=== PATIENT | male | born 1955 | race Caucasian/White ===

== ENCOUNTER 2017-03-09 18:00 | Inpatient (IN) ==
[2017-03-09] MEDS ORDERED: *HR* OxyCODONE/APAP 5/325 TABLET PO ONE (20:40)
[2017-03-09] MEDS ORDERED: Acetaminophen 325 MG TABLET PO PRN (23:47)
[2017-03-09] MEDS ORDERED: Ondansetron 4 MG/2 ML VIAL IVP PRN (23:47)
[2017-03-09] MEDS ORDERED: *HR* Morphine 2 MG/ML SYRINGE IVP PRN (23:47)
[2017-03-09] MEDS ORDERED: Naloxone 0.4 MG/ML INJ IVP PRN (23:47)
--- NOTE | 2017-03-09 23:57 | Internal Med History&Physical ---
Date of Encounter: 03/09/17 Time of Encounter: 22:40 Assessment and Plan (1) Abnormal EKG Current visit: Yes Status: Acute 1. Will repeat EKG and obtain ECHO in am. 2. No history of angina or PE. 3. Suspect RBBB and/or right heart disease due to COPD and long time smoking. 4. Will order CXR as well. 5. If necessary, may consult cardiology for pre-op clearance. However, history does not suggest angina. (2) COPD (chronic obstructive pulmonary disease) Current visit: Yes Status: Chronic 1. Continue home meds as appropriate. 2. Will use Duonebs PRN. 3. Smoking cessation advised. Qualifiers: COPD type: emphysema Emphysema type: panlobular Qualified Code(s): J43.1 - Panlobular emphysema (3) Left humeral fracture Current visit: Yes Status: Acute 1. Consult Dr. Renae for operative repair. Qualifiers: Encounter type: initial encounter Humerus Location: proximal Fracture type: closed Fracture alignment: nondisplaced Qualified Code(s): S42.295A - Other nondisplaced fracture of upper end of left humerus, initial encounter for closed fracture (4) DVT prophylaxis Current visit: Yes Status: Acute 1. Heparin SQ. Internal Medicine - H&P: HPI Chief complaint: transfer from [place]; abnormal EKG Admitted From: Hospital to Hospital Transfer Plans for Post Hospital Care: Home History of present illness: Mr. Miguel is a 61 year old male who was hospitalized at our local [facility] for left humeral fracture after sustaining a fall the other day. He was having some routine labs and EKGs performed where they noted he had a new right bundle branch block on his EKG. Because of the new EKG findings and need for orthopedic surgery, he was transferred here to [facility] called and spoke with Dr. Renae who accepted the patient in transfer to the hospitalist service with a consult to him. Upon my assessment of the patient, he is in no distress other than some mild pain to his left shoulder and arm. He denies any chest pain, shortness of breath, palpitations, or racing heartbeats. He denies any prior history of heart disease. He does have a history of COPD, which is mild. He has never been admitted for COPD exacerbation. He uses Symbicort daily with control of his respiratory symptoms. Despite COPD, he continues to smoke. His arm is in a sling and pain is relatively well controlled. He otherwise has no complaints presently. Past Med Surg Social Fam HX - Past Medical History Attestation: Yes The following information was validated with the patient. Source: patient, old records reviewed ([place] records) Medical history: arthritis, COPD, GERD, osteoporosis Psychiatric history: depression, PTSD - Past Surgical History Surgical History: other (egd/dilatation for esophageal stricture) - Social History Smoking Status: Current every day smoker Packs per day: 1 Alcohol use: none Drug use: none Current living situation: [facility] Activity Level: Uses cane/walker Recent Out of Country Travel Within the Last 8 Weeks: No - Family History Mother Age: 80 Living Status: Age at : 80 Hx Family Cardiac Disorders: Yes (htn) Father Age: 88 Living Status: Age at : 88 Cause of : cancer Internal Medicine - H&P: Meds Albuterol Neb Q6HR 03/09/17 [History] Alendronate Sodium [Fosamax] 10 mg PO DAILY 03/09/17 [History] Budesonide/Formoterol 160/4.5 2 IH BID 03/09/17 [History] Carbidopa-Levo 25-100 mg Odt 1 mg PO TID 03/09/17 [History] Chlorhexidine Gluconate [Hand Wash] 15 ml PO BID 03/09/17 [History] Docusate Sodium 200 mg PO HS 03/09/17 [History] Folic Acid [Folic Acid] 1 mg PO 03/09/17 [History] Gabapentin [Neurontin] 600 mg PO TID 03/09/17 [History] Heparin-1/2Ns 5,000 Unit/1,000 5,000 units SQ BID 03/09/17 [History] Mirtazapine [Remeron] 30 mg PO HS 03/09/17 [History] Nicotine Patch [Nicoderm] 21 mg TD DAILY 03/09/17 [History] Omeprazole [Omeprazole] 20 mg PO BID 03/09/17 [History] OxyCODONE/APAP 5/325 [Percocet 5/325 MG] 1 each PO Q4HR 03/09/17 [History] Pravastatin Sodium 10 mg PO HS 03/09/17 [History] Sennosides [Laxative] 17.2 mg PO HS 03/09/17 [History] Sertraline [Zoloft] 25 mg PO DAILY 03/09/17 [History] risperiDONE [Risperidone] 0.5 mg PO BID 03/09/17 [History] Allergies No Known Allergies Allergy (Verified 02/28/17 18:39) - Constitutional Constitutional: no chills, no fever(s) - EENT Eyes: no blurry vision, no change in vision Ears: no ear pain, no tinnitus Nose, mouth and throat: no nasal congestion, no sinus pain, no sore throat - Cardiovascular Cardiovascular ROS IM: no chest pain, no dyspnea, no dyspnea on exertion, no edema, no palpitations - Respiratory Respiratory: cough (chronic smoker's cough), wheezing, no dyspnea, no hemoptysis , no dyspnea on exertion, no chest congestion - Gastrointestinal Gastrointestinal: no abdominal pain, no diarrhea, no hematemesis, no hematochezia, no melena, no nausea, no vomiting - Genitourinary Genitourinary ROS male: no dysuria, no flank pain, no hematuria - Musculoskeletal Musculoskeletal ROS IM: arthralgias (left shoulder/arm -- fracture), no back pain - Integumentary Integumentary IM: no rash, no jaundice - Neurological Neurological ROS: no disequilibrium, no dizziness, no focal weakness, no frequent falls - Psychiatric Psychiatric: no anxiety, no depression - Endocrine Endocrine IM: no polydipsia, no polyuria - Hematologic/Lymphatic Hematologic/Lymphatic: no easy bruising - Allergic/Immunologic Allergic/Immunologic: wheezing, no GI upset with certain foods - Constitutional Vitals: Temp Pulse Resp BP Pulse Ox 99.3 F 71 16 118/69 99 03/09/17 19:49 03/09/17 19:49 03/09/17 19:49 03/09/17 19:49 03/09/17 19:49 General appearance: Present: cooperative, A&O X 3, pleasant, no acute distress, answers questions appropriately - Head Head exam: Present: atraumatic, normal inspection - Expanded Head Exam Head exam expanded: Absent: abrasion, contusion, general tenderness - Eye Eye exam: Present: EOMI, normal appearance, PERRL. Absent: scleral icterus Pupils: Present: normal accommodation - ENT ENT exam: Present: mucous membranes dry Additional comments: poor oral hygiene -- multiple missing teeth and severe dental caries - Neck Neck exam general surgery: Present: full ROM, supple. Absent: lymphadenopathy, tenderness, thyromegaly - Respiratory Respiratory exam: Present: CTAB. Absent: chest wall tenderness, prolonged expiratory phase, rales, respiratory distress, rhonchi, wheezes - Cardiovascular Cardiovascular exam: Present: RRR, +S1, +S2. Absent: diastolic murmur, JVD, systolic murmur - GI/Abdominal GI/Abdominal exam: Present: normal bowel sounds, soft. Absent: hepatomegaly, mass, splenomegaly - Extremities Exam Extremities exam: Present: warm. Absent: calf tenderness, pedal edema, tenderness Additional comments: left arm/shoulder in sling -- pain in humerus/shoulder area - Back Exam Back exam: Present: normal inspection. Absent: CVA tenderness (L), CVA tenderness (R) - Neurological Exam Neurological exam: Present: alert, CN II-XII intact, oriented X3, no focal deficits - Psychiatric Psychiatric exam: Present: flat affect. Absent: anxious - Skin Skin exam: Present: dry, warm. Absent: rash Internal Med - H&P Results - EKG Data -: EKG Interpreted by Myself EKG shows normal: sinus rhythm - EKG Data EKG comments: 03/10/17 00:04 Sinus rhythm with 1st degree AV block; RBBB
[2017-03-10] MEDS ORDERED: Ipratropium/Albuterol Neb 3 ML IH PRN (00:20)
[2017-03-10] MEDS: *HR* OxyCODONE/APAP 5/325 TABLET PO PRN ×6 (01:22→22:01)
[2017-03-10] MEDS: 0.9 % Sodium Chloride 1,000 ML IVC SCH ×2 (01:50→16:08)
[2017-03-10] MEDS: *HR* Heparin 5,000 UNIT/ML VIAL SQ SCH ×3 (01:51→18:16)
[2017-03-10 05:24] LABS: Basophils # 0.1 K/mcL (0.0-0.2); Basophils % 0.7 %; Eosinophils # 0.3 K/mcL (0.0-0.6); Eosinophils % 3.1 %; Hematocrit 33.5 % (37.5-50.1); Hemoglobin 10.8 g/dL (12.9-16.9); Immature Granulocytes % 0.4 % (0-4); Lymphocytes # 1.5 K/mcL (0.6-4.6); Mean Corpuscular HGB Conc 32.2 g/dL (31.6-35.5); Mean Corpuscular Hemoglobin 27.4 pg (28.0-33.3); Monocytes # 0.7 K/mcL (0.0-1.3); Monocytes % 7.6 %; Neutrophils # 7.2 K/mcL (1.6-8.9); Platelet Count 300 K/mcL (140-400); Red Blood Count 3.94 M/mcL (4.19-5.50); Red Cell Distribution Width 13.9 % (11.5-14.5); Segmented Neutrophils % 73.2 %
[2017-03-10 05:39] LABS: INR 1.2; Prothrombin Time 12.6 Seconds (9.4-12.1)
[2017-03-10 05:42] LABS: Activated Partial Thrombo Time 30.1 Seconds (26.0-36.0); BUN/Creatinine Ratio 19 (6-26); Blood Urea Nitrogen 17 mg/dL (8-26); Calcium 9.4 mg/dL (8.6-10.8); Carbon Dioxide 25 mEq/L (19-29); Chloride 105 mEq/L (98-109); Chol/HDL Ratio 6.4 (0-4.9); Cholesterol 159 mg/dL (< 200); Glucose 96 mg/dL (70-99); HDL Cholesterol 25 mg/dL (40-59); LDL Cholesterol,Calculated 108 mg/dL (0-99); Magnesium 1.7 mg/dL (1.6-2.6); Osmolality,Calculated 287 (280-300); Potassium 4.5 mEq/L (3.5-4.5); Sodium 138 mEq/L (136-145); Triglycerides 131 mg/dL (< 150); eGFR For African Americans > 60 (> 60); eGFR For Non-African Americans > 60 (> 60)
[2017-03-10] MEDS: Gabapentin 300 MG CAPSULE PO SCH ×3 (08:26→22:02)
[2017-03-10] MEDS: risperiDONE 0.25 MG TABLET PO SCH ×2 (08:27→22:02)
[2017-03-10] MEDS: ALENDRONATE SODIUM 10 MG PO SCH (08:27)
[2017-03-10] MEDS: Carbidopa/Levodopa 25/100 TABLET PO SCH ×3 (08:27→22:03)
[2017-03-10] MEDS: Nicotine 21 MG PATCH.TD24 TD SCH (08:27)
--- NOTE | 2017-03-10 13:16 | ECHO - Doppler Report ---
Echocardiogram Name: Luis Miguel Date of Study: 03/10/2017 Date: 1955 Ht: 71.0 in Medical Record#: [id number] Age: 61 Wt: 206.0 lb Gender: Male BSA: 2.14 Order #: [id number] Location: [facility] Room #: [facility] Reading Physician: Willis Johnson DO, STEPAN ERAZO Manager Environmental Services: Aamir Cruz RDCS Ordering Physician: Mike Palomino MD Primary Physician: Indications: Preoperative Clearance Impressions: LVEF 60-65%. Normal LV chamber size, wall thickness and function. Mild left ventricular diastolic dysfunction. Normal right ventricular structure and function. No significant valvular dysfunction. No evidence of pulmonary hypertension. There is a small pericardial effusion present. No tamponade. Left Ventricular Wall Motion: Rest Echo Findings All wall segments showed normal motion. Findings: Study Quality * Technically adequate exam. ECG Findings * Normal sinus rhythm. Left Ventricle * LVEF 60-65%. * Normal LV chamber size, wall thickness and function. * Mild left ventricular diastolic dysfunction. Right Ventricle * Normal right ventricular structure and function. Left Atrium * Normal left atrial size. Right Atrium * Normal right atrial size. Interatrial Septum * Interatrial septum not well evaluated. Aortic Valve * Trileaflet aortic valve with normal function. * No aortic regurgitation. * No aortic stenosis. Mitral Valve * Normal mitral valve structure and function. * No mitral regurgitation. * No mitral stenosis. Tricuspid Valve * Normal tricuspid valve structure and function. * Trace tricuspid regurgitation. * No evidence of pulmonary hypertension. Pulmonic Valve * Normal pulmonic valve structure and function. * No pulmonic regurgitation. Aorta * Normally sized aortic root. Pericardium * There is a small pericardial effusion present. No tamponade. IVC * Normal IVC dimensions and inspiratory collapse. Pulmonary Artery * Normal visualized portions of the main pulmonary artery. History History of Smoking Years 40 Packs 1 Measurements: BP: 113/ 74 2D Normal Values RVIDd: 3.10 cm <2.7 cm IVSd: 1.10 cm 0.6 - 1.0 cm LVIDd: 4.30 cm 3.7 - 5.6 cm LVPWd: .80 cm 0.6 - 1.1 cm LVIDs: 2.70 cm 1.5 - 3.6 cm AO: 2.90 cm < 4.0 cm LA: 2.60 cm 2.0 - 4.0cm %FS: 37.20 cm >25 % LA volume: 35 Mitral Valve Peak E:.81 m/sec Peak A:.76 m/sec E/A Ratio:1.1 Peak E' Lat Ash:11.3 cm/s Peak E' Med Ash:6.73 cm/s E/E' Lat Ratio:7.2 E/E' Med Ratio:12.1 Tricuspid Valve TV Regurg Peak Grad: 14.00mmHg TV Regurg Peak Ash: 1.86m/sec Updated by Willis Johnson DO, FACElana, DARREN YING on 03/10/2017 1:10:58 PM electronically signed on 03/10/2017 1:11:47 PM with status of Final Wall Motion Pacheco: 1=Normal, 2=Hypokinesis, 3=Akinesis, 4=Dyskinesis, 5=Aneurysmal, 6=Hyperkinetic, X=Not Visualized (Blank)=Missing
--- NOTE | 2017-03-10 14:36 | Orthopedics Progress Note ---
Date of Encounter: 03/10/17 Time of Encounter: 14:33 - Assessment and Plan (1) Left humeral fracture Current Visit: Yes Status: Acute Scheduled for a left reverse total shoulder arthroplasty on Sunday. Continue medical evaluation and management. Continue pain control. Qualifiers: Encounter type: initial encounter Humerus Location: proximal Fracture type: closed Fracture alignment: nondisplaced Qualified Code(s): S42.295A - Other nondisplaced fracture of upper end of left humerus, initial encounter for closed fracture Subjective Principal diagnosis: Left proximal humerus fracture Interval history: The patient is a patient Dr. Hopkinss, he was seen in the office 2 days ago and was scheduled for left reverse total shoulder arthroplasty. The patient was admitted to the [facility] for preop workup. His workup revealed a new right bundle- branch block. The patient transferred here for medical evaluation and management. The patient had an echocardiogram performed this morning. He reports no chest pain. Reports pain to his left shoulder. Physical exam: The patient is immobilized in a left neutral wedge. Positive ecchymosis of the left upper arm. Minimal swelling of the hand. With good motion of the wrist and digits. Normal sensation at fingertips. Radial pulse 2 +. Objective Vital signs: Vital Signs Temp Pulse Resp BP Pulse Ox 03/10/17 14:23 98.6 F 69 17 118/75 98 03/10/17 10:29 99.0 F 69 17 113/74 95 03/10/17 06:51 98.8 F 88 17 128/81 95 03/09/17 23:58 99.5 F 81 13 118/70 94 03/09/17 19:49 99.3 F 71 16 118/69 99 Intake and Output 03/09/17 03/10/17 03/10/17 23:59 07:59 15:59 Intake Total 720 / 720 Output Total 225 / 225 250 / 250 200 / 200 Balance -225 / -225 -250 / -250 520 / 520 Intake: Oral 720 / 720 Output: Urine 225 / 225 250 / 250 200 / 200 Other: Meal Lunch Percent of Meal Consumed 100% Weight 93.44 kg - Labs CBC & BMP: 03/10/17 04:17 03/10/17 04:17 Labs: Abnormal lab results RBC 3.94 M/mcL (4.19-5.50) L 03/10/17 04:17 Hgb 10.8 g/dL (12.9-16.9) L 03/10/17 04:17 Hct 33.5 % (37.5-50.1) L 03/10/17 04:17 MCH 27.4 pg (28.0-33.3) L 03/10/17 04:17 PT 12.6 Seconds (9.4-12.1) H 03/10/17 04:17 LDL Cholesterol, Calc 108 mg/dL (0-99) H 03/10/17 04:17 HDL Cholesterol 25 mg/dL (40-59) L 03/10/17 04:17 Cholesterol/HDL Ratio 6.4 (0-4.9) H 03/10/17 04:17 Consult Discharge Plan - Plan [facility]errals: [facility] [Primary Care Provider] -
--- NOTE | 2017-03-10 16:11 | Internal Med Progress Note ---
Date of Encounter: 03/10/17 Time of Encounter: 14:00 - Assessment and plan (1) Left humeral fracture Current Visit: Yes Status: Acute Assessment and plan: Patient diagnosed with a left humeral fracture on 02/28 after a mechanical fall. He was scheduled to have surgical repair by Dr. Renae as outpatient. He underwent preoperative clearance at the [facility] and it was noticed to have an abnormal EKG. Patient is cleared medically to undergo surgical repair. Appreciate orthopedic service input. Plan for left reverse total shoulder arthroplasty on Sunday. Continue IV pain medications. Qualifiers: Encounter type: initial encounter Humerus Location: proximal Fracture type: closed Fracture alignment: nondisplaced Qualified Code(s): S42.295A - Other nondisplaced fracture of upper end of left humerus, initial encounter for closed fracture (2) Abnormal EKG Current Visit: Yes Status: Acute Assessment and plan: Preoperative EKG shows new right bundle branch block, SR. Echocardiogram revealed LVEF 60-65%, mild left ventricle diastolic dysfunction, normal right ventricle structure and function, no significant vascular dysfunction, small pericardial effusion, no evidence of pulmonary hypertension. No need for further testing or intervention before surgery. Follow-up in the outpatient clinic. Likely secondary to COPD. (3) COPD (chronic obstructive pulmonary disease) Current Visit: Yes Status: Chronic Assessment and plan: Stable. Continue home medications. DuoNeb's when necessary. Qualifiers: COPD type: emphysema Emphysema type: panlobular Qualified Code(s): J43.1 - Panlobular emphysema (4) PTSD (post-traumatic stress disorder) Current Visit: Yes Status: Acute Assessment and plan: Continue home medications. (5) Depression Current Visit: Yes Status: Acute Assessment and plan: Untreated home medications. Qualifiers: Depression Type: unspecified Qualified Code(s): F32.9 - Major depressive disorder, single episode, unspecified (6) Tobacco use Current Visit: No Status: Chronic Assessment and plan: Nicotine patch. Patient counseled to quit smoking. - Subjective Interval history: Patient denies any chest pain, shortness of breath, lightheadedness, or palpitations. His only complaint is left arm pain that is well controlled with IV pain medications. - Constitutional Vitals: Temp Pulse Resp BP Pulse Ox 98.6 F 69 17 118/75 98 03/10/17 14:23 03/10/17 14:23 03/10/17 14:23 03/10/17 14:23 03/10/17 14:23 General appearance: Present: cooperative, A&O X 3, pleasant, no acute distress, answers questions appropriately - Respiratory Respiratory exam: Present: CTAB - Cardiovascular Cardiovascular exam: Present: RRR - GI/Abdominal GI/Abdominal exam: Present: normal bowel sounds, soft. Absent: distended, tenderness - Extremities Exam Extremities exam: Absent: pedal edema Additional comments: left arm in left neutral wedge, swelling. - Back Exam Back exam: Absent: CVA tenderness (L), CVA tenderness (R) - Neurological Exam Neurological exam: Present: alert, oriented X3, no focal deficits, strengths equal and symetr throughout. Absent: facial droop, speech deficit - Skin Skin exam: Absent: rash Internal Medicine: Result - Labs CBC & Chem 7: 03/10/17 04:17 03/10/17 04:17 Labs: Short CBC 03/10/17 Range/Units 04:17 WBC 9.8 (4.3-11.1) K/mcL Hgb 10.8 L (12.9-16.9) g/dL Hct 33.5 L (37.5-50.1) % Plt Count 300 (140-400) K/mcL Neutrophils # 7.2 (1.6-8.9) K/mcL BMP 03/10/17 04:17 Sodium 138 Potassium 4.5 Chloride 105 Carbon Dioxide 25 BUN 17 Creatinine 0.89 Glucose 96 Calcium 9.4 - ABG Interpretation ABG results: PT/INR, D-dimer PT 12.6 Seconds (9.4-12.1) H 03/10/17 04:17 - Impressions Impressions Chest X-Ray 03/10/17 07:00 IMPRESSION: No evidence of acute cardiopulmonary disease. D/ / Derrick Woods MD / Derrick Woods MD Interpreting Provider: Derrick Woods MD Consult Discharge Plan - Plan [facility]errals: [facility] [Primary Care Provider] -
[2017-03-10] MEDS: Sennosides 8.6 MG TABLET PO SCH (22:01)
[2017-03-10] MEDS: Mirtazapine 15 MG TABLET PO SCH (22:03)
[2017-03-11] MEDS: *HR* OxyCODONE/APAP 5/325 TABLET PO PRN ×6 (02:11→22:51)
[2017-03-11 03:37] LABS: Basophils # 0.1 K/mcL (0.0-0.2); Basophils % 0.8 %; Eosinophils # 0.3 K/mcL (0.0-0.6); Eosinophils % 4.5 %; Hematocrit 33.1 % (37.5-50.1); Immature Granulocytes % 0.5 % (0-4); Lymphocytes # 1.7 K/mcL (0.6-4.6); Lymphocytes % 23.7 %; Mean Corpuscular HGB Conc 33.2 g/dL (31.6-35.5); Mean Corpuscular Hemoglobin 28.1 pg (28.0-33.3); Mean Corpuscular Volume 84.7 fL (83.0-100.0); Mean Platelet Volume 10.4 fL (9.4-12.4); Monocytes # 0.7 K/mcL (0.0-1.3); Monocytes % 8.8 %; Neutrophils # 4.5 K/mcL (1.6-8.9); Platelet Count 287 K/mcL (140-400); Red Blood Count 3.91 M/mcL (4.19-5.50); Segmented Neutrophils % 61.7 %
[2017-03-11 03:51] LABS: BUN/Creatinine Ratio 24 (6-26); Blood Urea Nitrogen 20 mg/dL (8-26); Calcium 9.2 mg/dL (8.6-10.8); Carbon Dioxide 23 mEq/L (19-29); Chloride 107 mEq/L (98-109); Glucose 97 mg/dL (70-99); Magnesium 1.7 mg/dL (1.6-2.6); Osmolality,Calculated 291 (280-300); Phosphorous 3.3 mg/dL (2.3-4.7); Potassium 3.9 mEq/L (3.5-4.5); Sodium 139 mEq/L (136-145); eGFR For African Americans > 60 (> 60); eGFR For Non-African Americans > 60 (> 60)
[2017-03-11] MEDS: *HR* Heparin 5,000 UNIT/ML VIAL SQ SCH ×2 (06:05→18:07)
[2017-03-11] MEDS: 0.9 % Sodium Chloride 1,000 ML IVC SCH (06:06)
[2017-03-11] MEDS: risperiDONE 0.25 MG TABLET PO SCH ×2 (08:48→21:48)
[2017-03-11] MEDS: Gabapentin 300 MG CAPSULE PO SCH ×3 (08:48→21:48)
[2017-03-11] MEDS: Nicotine 21 MG PATCH.TD24 TD SCH (08:49)
[2017-03-11] MEDS: Carbidopa/Levodopa 25/100 TABLET PO SCH ×3 (08:49→21:48)
[2017-03-11] MEDS: ALENDRONATE SODIUM 10 MG PO SCH (08:49)
--- NOTE | 2017-03-11 10:24 | Internal Med Progress Note ---
Date of Encounter: 03/11/17 Time of Encounter: 10:00 - Assessment and plan (1) Left humeral fracture Current Visit: Yes Status: Acute Assessment and plan: Patient diagnosed with a left humeral fracture on 02/28 after a mechanical fall. He was scheduled to have surgical repair by Dr. Renae as outpatient. He underwent preoperative clearance at the [facility] and it was noticed to have an abnormal EKG. Patient is cleared medically to undergo surgical repair. Appreciate orthopedic service input. Plan for left reverse total shoulder arthroplasty on Sunday. Continue pain medications. Qualifiers: Encounter type: initial encounter Humerus Location: proximal Fracture type: closed Fracture morphology: other fracture Fracture alignment: nondisplaced Qualified Code(s): S42.295A - Other nondisplaced fracture of upper end of left humerus, initial encounter for closed fracture (2) Abnormal EKG Current Visit: Yes Status: Acute Assessment and plan: Preoperative EKG shows new right bundle branch block, SR. Echocardiogram revealed LVEF 60-65%, mild left ventricle diastolic dysfunction, normal right ventricle structure and function, no significant vascular dysfunction, small pericardial effusion, no evidence of pulmonary hypertension. No need for further testing or intervention before surgery. Follow-up in the outpatient clinic. Likely secondary to COPD. (3) COPD (chronic obstructive pulmonary disease) Current Visit: Yes Status: Chronic Assessment and plan: Stable. Continue home medications. DuoNeb's when necessary. Qualifiers: COPD type: emphysema Emphysema type: panlobular Qualified Code(s): J43.1 - Panlobular emphysema (4) PTSD (post-traumatic stress disorder) Current Visit: Yes Status: Acute Assessment and plan: Continue home medications. (5) Depression Current Visit: Yes Status: Acute Assessment and plan: Untreated home medications. Qualifiers: Depression Type: unspecified Qualified Code(s): F32.9 - Major depressive disorder, single episode, unspecified (6) Tobacco use Current Visit: No Status: Chronic Assessment and plan: Nicotine patch. Patient counseled to quit smoking. - Subjective Interval history: Patient denies any chest pain, shortness of breath, lightheadedness, or palpitations. His only complaint is left arm pain that is well controlled with IV pain medications. - Constitutional Vitals: Temp Pulse Resp BP Pulse Ox 98.2 F 59 16 123/71 94 03/11/17 07:03 03/11/17 07:03 03/11/17 07:03 03/11/17 07:03 03/11/17 07:03 General appearance: Present: cooperative, A&O X 3, pleasant, no acute distress, answers questions appropriately - Neck Neck exam general surgery: Present: supple, trachea midline. Absent: lymphadenopathy - Respiratory Respiratory exam: Present: CTAB - Cardiovascular Cardiovascular exam: Present: RRR - GI/Abdominal GI/Abdominal exam: Present: normal bowel sounds, soft. Absent: distended, tenderness - Extremities Exam Additional comments: left arm in left neutral wedge, swelling. - Back Exam Back exam: Absent: CVA tenderness (L), CVA tenderness (R) - Neurological Exam Neurological exam: Present: alert, oriented X3, no focal deficits, strengths equal and symetr throughout. Absent: facial droop, speech deficit - Skin Skin exam: Absent: rash Internal Medicine: Result - Labs CBC & Chem 7: 03/11/17 03:13 03/11/17 03:13 Labs: Short CBC 03/11/17 Range/Units 03:13 WBC 7.4 (4.3-11.1) K/mcL Hgb 11.0 L (12.9-16.9) g/dL Hct 33.1 L (37.5-50.1) % Plt Count 287 (140-400) K/mcL Neutrophils # 4.5 (1.6-8.9) K/mcL BMP 03/11/17 03:13 Sodium 139 Potassium 3.9 Chloride 107 Carbon Dioxide 23 BUN 20 Creatinine 0.82 Glucose 97 Calcium 9.2 - ABG Interpretation ABG results: PT/INR, D-dimer PT 12.6 Seconds (9.4-12.1) H 03/10/17 04:17 Consult Discharge Plan - Plan [facility]errals: [facility] [Primary Care Provider] -
--- NOTE | 2017-03-11 12:51 | Electrocardiograph Report ---
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
[2017-03-11] MEDS: Sennosides 8.6 MG TABLET PO SCH (21:48)
[2017-03-11] MEDS: Mirtazapine 15 MG TABLET PO SCH (21:49)
[2017-03-12] MEDS: *HR* OxyCODONE/APAP 5/325 TABLET PO PRN ×4 (03:12→22:10)
[2017-03-12] MEDS: *HR* Heparin 5,000 UNIT/ML VIAL SQ SCH ×2 (04:35→17:22)
[2017-03-12] MEDS ORDERED: Folic Acid 1 MG TABLET PO SCH (09:00)
[2017-03-12] MEDS ORDERED: Albuterol 2.5 MG/3 ML NEBULIZER IH ONE (09:28)
--- NOTE | 2017-03-12 09:31 | Anesthesia Evaluation PreOp ---
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) Other Medical History: GERD, Other (PTSD) Anesthesia History: No Prior Anesthetic Complications Alcohol Use: none Drug use: none Medications and Allergies Alendronate Sodium [Fosamax] 10 mg PO DAILY 03/09/17 [History] Budesonide/Formoterol 160/4.5 [Symbicort 160/4.5] 2 puff IH BID 03/09/17 [ History] Carbidopa/Levodopa [Carbidopa-Levodopa 25-100 Tab] 1 tab PO TID 03/09/17 [ History] Chlorhexidine Gluconate [Hand Wash] 15 ml PO BID 03/09/17 [History] Docusate Sodium 200 mg PO HS 03/09/17 [History] Folic Acid [Folic Acid] 1 mg PO DAILY 03/09/17 [History] Gabapentin [Neurontin] 600 mg PO TID 03/09/17 [History] Mirtazapine [Remeron] 30 mg PO HS 03/09/17 [History] Omeprazole [Omeprazole] 20 mg PO DAILY 03/09/17 [History] Pravastatin Sodium 10 mg PO HS 03/09/17 [History] Sennosides [Laxative] 17.2 mg PO HS 03/09/17 [History] Sertraline [Zoloft] 25 mg PO DAILY 03/09/17 [History] risperiDONE [Risperidone] 0.5 mg PO BID 03/09/17 [History] OxyCODONE/APAP 5/325 [Percocet 5/325 MG] 1 - 2 tab PO Q6H PRN #40 tablet [Rx] Allergies No Known Allergies Allergy (Verified 02/28/17 18:39) - Meds/Allergy Pre-op Review Medications Reviewed: Yes Allergies Reviewed: Yes Beta Blockers on Current Med List: No Anesthesia Results - Labs 03/11/17 03:13 03/11/17 03:13 - Imaging EKG: report reviewed (SR First Degree Block) Additional studies: ECHO -2016 LVEF 60-65% Anesthesia Exam O2 Sat Weight 91.399 kg O2 Sat by Pulse Oximetry 96 O2 Sat by Pulse Oximetry 94 O2 Sat by Pulse Oximetry 94 O2 Sat by Pulse Oximetry 95 O2 Sat by Pulse Oximetry 96 O2 Sat by Pulse Oximetry 92 O2 Sat by Pulse Oximetry 95 Vital Signs Temp Pulse Resp BP Pulse Ox 99.3 F 71 16 118/69 99 03/09/17 19:49 03/09/17 19:49 03/09/17 19:49 03/09/17 19:49 03/09/17 19:49 Height: 5'11 Weight: 200 lbs NPO (# of Hours): MN Pain Scale: 1 - HEENT Pupil (Motor): Pupils equal, EOMI Mallampati: III Teeth: Edentulous Oral Opening: Less than or equal to 3 - ROVING MACHINE OPERATOR LOC: Oriented ROVING MACHINE OPERATOR Motor: Normal RUE, Normal LUE, Normal RLE, Normal LLE, Normal Face ROVING MACHINE OPERATOR Sensory: Normal: RUE, LUE, RLE, LLE, Face - Cardiac Rhythm: Regular Murmur: None JVD: No Carotid Bruit: No - Pulmonary Breath Sounds: bilateral Clear Respiratory Effort: Symmetrical Anesthesia Assess/Plan ASA Score: 3 (COPD GERD) Modified [place] Scale for Level of Consciousness: Cooperative, oriented, and tranquil Anesthetic Plan: General, Regional Monitoring Plan: Standard Monitors Recovery Plan: PACU (Discussed GA and RA, agrees to proceed)
[2017-03-12] MEDS ORDERED: *HR* FentaNYL (PF) 100 MCG/2 ML VIAL ONE (09:41)
[2017-03-12] MEDS ORDERED: Lidocaine -MPF 2% 2 ML VIAL ONE (09:41)
[2017-03-12] MEDS ORDERED: Dexamethasone 4 MG/ML VIAL ONE (09:41)
[2017-03-12] MEDS ORDERED: *HR* Propofol 200 MG/20 ML VIAL IVP ONE (09:41)
[2017-03-12] MEDS ORDERED: Ondansetron 4 MG/2 ML VIAL ONE (09:41)
[2017-03-12] MEDS ORDERED: *HR* Midazolam HCl 2 MG/2 ML VIAL ONE (09:41)
[2017-03-12] MEDS ORDERED: ROPIVACAINE HCL/PF 0.5% 30 ML VIAL ONE (09:45)
[2017-03-12] MEDS ORDERED: Tetracaine/PF 20 MG/2 ML AMPUL ONE (09:45)
--- NOTE | 2017-03-12 11:22 | Orthopedic Operative Note ---
Date of procedure: 03/12/17 Pre-op diagnosis: Displaced left proximal humerus fracture Post-op diagnosis: same Procedure: Procedure: Left Reverse total shoulder replacment, Biceps tenodesis Estimated blood loss: 100 cc Hardware: Metal and polyethylene replacement Arthrex glenoid baseplate: Large , 2 4.5 screws. 1 6.5 screw, glenosphere: 42+4 , humeral stem: 11 , poly insert: 3 constrained Procedural Notes: Is place comminuted fracture left proximal humerus Operative procedure: The patient was brought to the operating room and placed on the operating room table. After general anesthesia was administered the operative shoulder was examined. Findings were noted. The patient was placed in the modified beachchair position. All pressure points were padded appropriately. And the head was stabilized in the neutral position. The operative extremity was prepped and draped in the sterile surgical fashion. The patient received IV antibiotics prior to skin incision. A standard deltopectoral approach was made to the operative shoulder. Incision was made to the skin and subcutaneous tissue,hemo stasis was obtained with Bovie cautery. Using careful blunt dissection the cephalic vein was identified and mobilized medially. The deltopectoral interval was developed and the clavipectoral fascia was incised. The lesser tuberosity was identified and tagged with 2 #2 fiber loops and 2 #2 FiberWire suture. The greater tuberosity was identified and tagged with 6 #5 FiberWire suture. The humeral head was removed. Anterior and posterior Bankart retractors were placed to expose the glenoid. The glenoid guide was seated and the centering hole was made. It was reamed with the appropriate reamer. The large baseplate was seated and secured with (2 ) 4.5 screws and one 6.5 screw. The baseplate was irrigated and dried and the 42+4 was seated and secured with the Jensen taper. The Jensen taper was tested and found to be secure the humerus was redislocated and prepared with the diaphyseal reamers, followed by a broaching process up to the appropriate size 11 in 20 degrees of retro-version. Trial reduction found the shoulder to be relocatable. Trial components were removed and [address] on either side of the bicpital groove and filled with #5 fiberwire sugrue incorporating the biceps, for a later biceps tenodesis and vertical fixation of the tuberosities. The real 11 humeral component was impaced in place in 20 degrees of retroversion. Trial reduction found the shoulder to be relocatable and stable with the 3 constrained Vero. Trial component was removed and the real 3 constrained Vero seated and secured the shoulder was reduced. The shoulder had excellent motion and excellent stability and no evidence of dislocation. The greater tuberosity was reduced and repaired to the implant with 2 # 5 fiberwire sutures. the lesser tuberosity was reduced and repaired to this construct with 2 #5 fiberwire sutures. Vertical fixation of the tuberosities was accomplished with the #5 fiberwire sutures in the humeral shaft, incoporating the bices in a box stitch type repair. The deep tissue was irrigated with pulse irrigation. The deltopectoral interval was closed with a running #1 PDS suture, subcutaneous tissue was irrigated and closed with 0 PDS suture, the skin was closed with Dermabond. The patient was placed in a sterile dressing, abduction brace and extubated. The patient was then transferred to the recovery room in stable condition. Anesthesia: GETA Surgeon: Lyle Renae Condition: stable Disposition: PACU
[2017-03-12 12:01] LABS: Hematocrit 35.9 % (37.5-50.1); Hemoglobin 11.9 g/dL (12.9-16.9)
--- NOTE | 2017-03-12 12:09 | Anesthesia Procedures ---
Date of Encounter: 03/12/17 Time of Encounter: 08:30 Procedures: Anesthesia - Nerve Block Procedure Date: 03/12/17 Time: 08:45 Pre-op Diagnosis: Fracture Left Shoulder Surgical Procedure: Rt Total Shoulder Checklist: Correct Patient Identifier Correct side: Right Blood Thinner: No Monitor Applied: EKG, BP, Pulse Oximetry Supplemental Oxygen via Nasal Cannula (L/min): 2 Sedation: Versed (mg): 2 Sedation: Fentanyl (mcg): 100 Indication: Post Op Analgesia Block Type: Supraclavicular Sterile Technique: Yes Ultrasound used: Yes Anatomy identified: Yes Visual spread of Local: Yes Neuro Stimulation: No Blood on Needle Aspiration: No Smooth Injection of Local: Yes Pain with Injection of Local: No Prep: Chlorhexadine Needle: 22 x 50 mm Stimuplex Local: 0.25% Bupivicaine w/Clonidine 20 mcg/cc, Ropivacaine Volume (cc): 30 Number of Attempts: 1 Complications: None/effective block
--- NOTE | 2017-03-12 12:10 | Anesthesia Evaluation Post Op ---
Date of Encounter: 03/12/17 Time of Encounter: 12:10 - Lungs Lungs: Clear Ascult./Percussion - Airway Airway: Non-obstructed - Cardiovascular Regular Rate - Mental Status Mental Status: Alert & Oriented, Answers Appropriately - Pain Pain Scale: 0 - Nausea Vomiting Nausea Vomiting: Not Present - Hydration Hydration: Ice chips - Discharge PostOp Status: Transfer Patient to floor
[2017-03-12] MEDS: Nicotine 21 MG PATCH.TD24 TD SCH (12:50)
[2017-03-12] MEDS: Gabapentin 300 MG CAPSULE PO SCH ×2 (12:50→22:04)
[2017-03-12] MEDS: Carbidopa/Levodopa 25/100 TABLET PO SCH ×2 (12:51→22:06)
[2017-03-12] MEDS: risperiDONE 0.25 MG TABLET PO SCH ×2 (12:51→22:05)
[2017-03-12] MEDS ORDERED: Ondansetron 4 MG/2 ML VIAL IVP PRN (16:05)
[2017-03-12] MEDS ORDERED: Acetaminophen 325 MG TABLET PO PRN (16:05)
[2017-03-12] MEDS ORDERED: MOM Conc 10 ML UD.LIQ PO PRN (16:05)
[2017-03-12] MEDS ORDERED: Naloxone 0.4 MG/ML INJ IVP PRN (16:05)
[2017-03-12] MEDS ORDERED: Ipratropium/Albuterol Neb 3 ML IH PRN (16:05)
[2017-03-12] MEDS ORDERED: Temazepam 15 MG CAPSULE PO PRN (16:05)
--- NOTE | 2017-03-12 18:28 | Internal Med Progress Note ---
Date of Encounter: 03/12/17 Time of Encounter: 07:30 - Assessment and plan (1) Left humeral fracture Current Visit: Yes Status: Acute Assessment and plan: Patient diagnosed with a left humeral fracture on 02/28 after a mechanical fall. He was scheduled to have surgical repair by Dr. Renae as outpatient. He underwent preoperative clearance at the [facility] and it was noticed to have an abnormal EKG. Patient is cleared medically to undergo surgical repair. Appreciate orthopedic service input. Plan for left reverse total shoulder arthroplasty today. Continue pain medications. Qualifiers: Encounter type: initial encounter Humerus Location: proximal Fracture morphology: unspecified fracture morphology Fracture alignment: displaced Qualified Code(s): S42.202A - Unspecified fracture of upper end of left humerus , initial encounter for closed fracture (2) Abnormal EKG Current Visit: Yes Status: Acute Assessment and plan: Preoperative EKG shows new right bundle branch block, SR. Echocardiogram revealed LVEF 60-65%, mild left ventricle diastolic dysfunction, normal right ventricle structure and function, no significant vascular dysfunction, small pericardial effusion, no evidence of pulmonary hypertension. No need for further testing or intervention before surgery. Follow-up in the outpatient clinic. Likely secondary to COPD. (3) COPD (chronic obstructive pulmonary disease) Current Visit: Yes Status: Chronic Assessment and plan: Stable. Continue home medications. DuoNeb's when necessary. Qualifiers: COPD type: unspecified COPD Qualified Code(s): J44.9 - Chronic obstructive pulmonary disease, unspecified (4) PTSD (post-traumatic stress disorder) Current Visit: Yes Status: Acute Assessment and plan: Continue home medications. (5) Depression Current Visit: Yes Status: Chronic Assessment and plan: Untreated home medications. Qualifiers: Depression Type: unspecified Qualified Code(s): F32.9 - Major depressive disorder, single episode, unspecified (6) Tobacco use Current Visit: No Status: Chronic Assessment and plan: Nicotine patch. Patient counseled to quit smoking. - Subjective Interval history: Patient reports left arm pain is well-controlled with medications. - Constitutional Vitals: Temp Pulse Resp BP Pulse Ox 97.4 F L 79 16 118/80 96 03/12/17 15:35 03/12/17 17:05 03/12/17 17:05 03/12/17 17:05 03/12/17 17:05 General appearance: Present: cooperative, A&O X 3, pleasant, no acute distress, answers questions appropriately - Neck Neck exam general surgery: Present: supple, trachea midline. Absent: lymphadenopathy - Respiratory Respiratory exam: Present: CTAB - Cardiovascular Cardiovascular exam: Present: RRR - GI/Abdominal GI/Abdominal exam: Present: normal bowel sounds, soft. Absent: distended, tenderness - Extremities Exam Extremities exam: Absent: pedal edema Additional comments: left arm in left neutral wedge, swelling. - Back Exam Back exam: Absent: CVA tenderness (L), CVA tenderness (R) - Neurological Exam Neurological exam: Present: alert, oriented X3, no focal deficits, strengths equal and symetr throughout. Absent: facial droop, speech deficit - Skin Skin exam: Absent: rash Internal Medicine: Result - Labs CBC & Chem 7: 03/12/17 11:52 03/11/17 03:13 Labs: Short CBC 03/12/17 Range/Units 11:52 Hgb 11.9 L (12.9-16.9) g/dL Hct 35.9 L (37.5-50.1) % - ABG Interpretation ABG results: PT/INR, D-dimer PT 12.6 Seconds (9.4-12.1) H 03/10/17 04:17 - Impressions Impressions Shoulder X-Ray 03/12/17 09:39 IMPRESSION: Anatomic alignment of the left shoulder arthroplasty. No evidence of hardware complication. D/ / Zack Mayer MD / Zack Mayer MD Interpreting Provider: Zack Mayer MD Consult Discharge Plan - Plan [facility]: [facility] [Primary Care Provider[facility] -
[2017-03-12] MEDS: ceFAZolin 2,000 MG in D5% in Water 100 ML IVPB SCH (19:02)
[2017-03-12] MEDS: Mirtazapine 15 MG TABLET PO SCH (22:05)
[2017-03-12] MEDS: Sennosides 8.6 MG TABLET PO SCH (22:05)
[2017-03-13] MEDS: ceFAZolin 2,000 MG in D5% in Water 100 ML IVPB SCH (01:33)
[2017-03-13] MEDS: *HR* OxyCODONE/APAP 5/325 TABLET PO PRN ×6 (02:30→22:37)
[2017-03-13] MEDS: *HR* Heparin 5,000 UNIT/ML VIAL SQ SCH ×2 (05:52→17:15)
[2017-03-13 06:05] LABS: Hematocrit 33.7 % (37.5-50.1)
--- NOTE | 2017-03-13 06:51 | Orthopedics Progress Note ---
Date of Encounter: 03/13/17 Time of Encounter: 06:51 Subjective Principal diagnosis: Left proximal humerus fracture Interval history: Patient was seen this morning doing well without complaints. Afebrile vital signs stable. Operative extremity: Neurovascularly intact Dressing clean dry and intact Calves nontender Assessment and plan: Continue with postoperative care Stable for discharge Objective Vital signs: Vital Signs Temp Pulse Resp BP Pulse Ox 03/13/17 04:25 97.9 F 76 16 120/81 95 03/13/17 00:47 98.1 F 76 16 115/72 94 03/12/17 19:05 97.5 F L 78 16 128/81 97 03/12/17 17:05 79 16 118/80 96 03/12/17 15:35 97.4 F L 79 16 118/80 96 03/12/17 15:25 98.4 F 72 16 118/80 98 03/12/17 14:25 98.1 F 68 16 116/78 98 03/12/17 13:24 98.3 F 65 16 118/82 97 03/12/17 12:55 98.3 F 69 16 112/76 99 03/12/17 12:25 98.2 F 63 14 111/76 98 03/12/17 07:01 97.7 F 64 16 129/78 96 Intake and Output 03/12/17 03/12/17 03/13/17 15:59 23:59 07:59 Intake Total 100 / 100 400 / 400 Output Total 250 / 250 425 / 425 Balance -150 / -150 -25 / -25 Intake: IV Fluids 100 / 100 100 / 100 Ancef 2,000 MG In 100 / 100 100 / 100 Dextrose 5% 100 ML @ 200 mls/hr IVPB Q8HR [facility] Rx#: [id number] Oral 300 / 300 Output: Urine 250 / 250 425 / 425 Other: Weight 91.399 kg 96.332 kg Patient Weight 03/13/17 23:59 Weight 96.332 kg - Labs CBC & BMP: 03/13/17 05:26 03/11/17 03:13 Labs: Abnormal lab results RBC 3.91 M/mcL (4.19-5.50) L 03/11/17 03:13 Hgb 11.0 g/dL (12.9-16.9) L 03/13/17 05:26 Hct 33.7 % (37.5-50.1) L 03/13/17 05:26 PT 12.6 Seconds (9.4-12.1) H 03/10/17 04:17 LDL Cholesterol, Calc 108 mg/dL (0-99) H 03/10/17 04:17 HDL Cholesterol 25 mg/dL (40-59) L 03/10/17 04:17 Cholesterol/HDL Ratio 6.4 (0-4.9) H 03/10/17 04:17 - VTE Documentation of Mechanical Device: Intermittent pneumatic compression device Consult Discharge Plan - Plan [facility]errals: [facility] [Primary Care Provider] -
[2017-03-13] MEDS: risperiDONE 0.25 MG TABLET PO SCH ×2 (09:38→20:08)
[2017-03-13] MEDS: Folic Acid 1 MG TABLET PO SCH (09:38)
[2017-03-13] MEDS: Gabapentin 300 MG CAPSULE PO SCH ×4 (09:39→20:07)
[2017-03-13] MEDS: Nicotine 21 MG PATCH.TD24 TD SCH (09:39)
[2017-03-13] MEDS: FOSAMAX 10 MG PO SCH (09:39)
[2017-03-13] MEDS: Carbidopa/Levodopa 25/100 TABLET PO SCH ×4 (09:39→20:07)
[2017-03-13] MEDS: *HR* Morphine 2 MG/ML SYRINGE IVP PRN ×2 (09:42→20:06)
[2017-03-13] MEDS: ALENDRONATE SODIUM 10 MG PO SCH (10:13)
[2017-03-13] MEDS: 0.9 % Sodium Chloride 1,000 ML IVC SCH (10:17)
--- NOTE | 2017-03-13 10:28 | Discharge Summary ---
Date of Encounter: 03/13/17 Time of Encounter: 10:26 - Discharge Diagnosis (1) Left humeral fracture Priority: Primary Status: Acute Qualifiers: Encounter type: initial encounter Humerus Location: proximal Fracture morphology: unspecified fracture morphology Fracture alignment: displaced Qualified Code(s): S42.202A - Unspecified fracture of upper end of left humerus , initial encounter for closed fracture (2) Abnormal EKG Priority: Primary Status: Acute (3) COPD (chronic obstructive pulmonary disease) Priority: Secondary Status: Chronic Qualifiers: COPD type: unspecified COPD Qualified Code(s): J44.9 - Chronic obstructive pulmonary disease, unspecified (4) PTSD (post-traumatic stress disorder) Priority: Secondary Status: Chronic (5) Depression Priority: Secondary Status: Chronic Qualifiers: Depression Type: unspecified Qualified Code(s): F32.9 - Major depressive disorder, single episode, unspecified (6) Tobacco use Priority: Secondary Status: Chronic - Discharge Medications Prescriptions: OxyCODONE/APAP 5/325 [Percocet 5/325 MG] 1 tab PO Q4HR PRN #40 tablet PRN Reason: moderate to severe pain Home Medications: Alendronate Sodium [Fosamax] 10 mg PO DAILY 03/09/17 [History] Budesonide/Formoterol 160/4.5 [Symbicort 160/4.5] 2 puff IH BID 03/09/17 [ History] Carbidopa/Levodopa [Carbidopa-Levodopa 25-100 Tab] 1 tab PO TID 03/09/17 [ History] Chlorhexidine Gluconate [Hand Wash] 15 ml PO BID 03/09/17 [History] Docusate Sodium 200 mg PO HS 03/09/17 [History] Folic Acid 1 mg PO DAILY 03/09/17 [History] Gabapentin [Neurontin] 600 mg PO TID 03/09/17 [History] Mirtazapine [Remeron] 30 mg PO HS 03/09/17 [History] Omeprazole 20 mg PO DAILY 03/09/17 [History] Pravastatin Sodium 10 mg PO HS 03/09/17 [History] Sennosides [Laxative] 17.2 mg PO HS 03/09/17 [History] Sertraline [Zoloft] 25 mg PO DAILY 03/09/17 [History] risperiDONE [Risperidone] 0.5 mg PO BID 03/09/17 [History] Ipratropium/Albuterol Neb [Duoneb] 3 ml IH [id number] PRN #0 inhsol 03/13/17 [Rx] MOM Conc [MILK OF MAGNESIA conc] 5 ml PO HS PRN #0 ud.liq 03/13/17 [Rx] Nicotine Patch [Nicoderm] 21 mg TD DAILY patch.td24 03/13/17 [Rx] OxyCODONE/APAP 5/325 [Percocet 5/325 MG] 1 tab PO Q4HR PRN #40 tablet 03/13/17 [ Rx] Allergies/Adverse Reactions: Allergies No Known Allergies Allergy (Verified 02/28/17 18:39) Date of admission: 03/09/17 19:09 Primary care physician: PCP [facility] Consults: 03/12/17 16:05 Consult to Occupational Therapy [CONS] Routine Comment: post shoulder surgery Reason for Consult: post shoulder surgery Consult to Physical Therapy [CONS] Routine Comment: post shoulder surgery Reason for Consult: post shoulder surgery RT Post Op Consult [CONS] Routine 03/13/17 09:51 Consult to Wheel Cleaner [CONS] Routine Reason for SW Consult: d/c planning - Patient Status Disposition: Transfer Inpatient Rehab Fac Condition: Good Functional capacity at discharge: independent ambulation Overall status at discharge: patient is progressing back to baseline - Discharge Instructions [facility] With: [facility] Care Provider[facility] - Additional Instructions: follow up with primary care doctor for COPD, RBBB. - Diet and Activity Diet: low fat, low cholesterol Interval History: patient denies any chest pain, shortness of breath or dizziness. left arm pain is controlled with medications. Hospital course: Mr. Miguel is a 61 year old male with past medical history of COPD, PTSD and mood disorder was transferred from [facility] because of abnormal EKG. Patient fell at home and was hospitalized our local [facility] for left humeral fracture. As part of the preoperative clearance he had an EKG that showed new right bundle branch block. Patient transfer to our hospital for further orthopedic evaluation. Patient denied any chest pain, shortness of breath, palpitations, dizziness or lightheadedness. His only complaint was left arm pain. Echocardiogram revealed LVEF 60-65%, mild left ventricle diastolic dysfunction, normal right ventricle structure and function, no significant vascular dysfunction, small pericardial effusion, no evidence of pulmonary hypertension. Given normal echocardiogram and pt being asymptomatic from the cardiovascular standpoint, there was no need for further testing or intervention before surgery. Patient underwent left reversed total shoulder replacement, bicep tendon bases without complications. PLAN: Patient will be discharged to [facility]. He needs outpatient follow-up for his COPD. - Time Spent with Patient Total time spent providing and/or coordinating discharge services: - Constitutional Vitals: Temp Pulse Resp BP Pulse Ox 98.1 F 71 16 115/71 96 03/13/17 06:56 03/13/17 06:56 03/13/17 06:56 03/13/17 06:56 03/13/17 06:56 General appearance: Present: cooperative, A&O X 3, pleasant, no acute distress, answers questions appropriately - Neck Neck exam general surgery: Present: supple, trachea midline. Absent: lymphadenopathy - Respiratory Respiratory exam: Present: CTAB - Cardiovascular Cardiovascular exam: Present: RRR - GI/Abdominal GI/Abdominal exam: Present: normal bowel sounds, soft. Absent: distended, tenderness - Extremities Exam Extremities exam: Absent: pedal edema Additional comments: left arm: in sling with some bruises and swelling - Neurological Exam Neurological exam: Present: alert, oriented X3, no focal deficits, strengths equal and symetr throughout. Absent: facial droop, speech deficit - VTE Documentation of Mechanical Device: Intermittent pneumatic compression device
--- NOTE | 2017-03-13 10:33 | Physician Discharge Referral ---
ExtendedCare Referral Info Transfer To: [facility] Provider in Charge: kaley Provider in Charge after Transfer: PCP Institutional Level of Care: Skilled - Diagnosis (1) Left humeral fracture Status: Acute (2) Abnormal EKG Status: Acute (3) COPD (chronic obstructive pulmonary disease) Status: Chronic (4) PTSD (post-traumatic stress disorder) Status: Chronic (5) Depression Status: Chronic (6) Tobacco use Status: Chronic - Transfer Medications Prescriptions: OxyCODONE/APAP 5/325 [Percocet 5/325 MG] 1 tab PO Q4HR PRN #40 tablet PRN Reason: moderate to severe pain Home Medications: Alendronate Sodium [Fosamax] 10 mg PO DAILY 03/09/17 [History] Budesonide/Formoterol 160/4.5 [Symbicort 160/4.5] 2 puff IH BID 03/09/17 [ History] Carbidopa/Levodopa [Carbidopa-Levodopa 25-100 Tab] 1 tab PO TID 03/09/17 [ History] Chlorhexidine Gluconate [Hand Wash] 15 ml PO BID 03/09/17 [History] Docusate Sodium 200 mg PO HS 03/09/17 [History] Folic Acid 1 mg PO DAILY 03/09/17 [History] Gabapentin [Neurontin] 600 mg PO TID 03/09/17 [History] Mirtazapine [Remeron] 30 mg PO HS 03/09/17 [History] Omeprazole 20 mg PO DAILY 03/09/17 [History] Pravastatin Sodium 10 mg PO HS 03/09/17 [History] Sennosides [Laxative] 17.2 mg PO HS 03/09/17 [History] Sertraline [Zoloft] 25 mg PO DAILY 03/09/17 [History] risperiDONE [Risperidone] 0.5 mg PO BID 03/09/17 [History] Ipratropium/Albuterol Neb [Duoneb] 3 ml IH [id number] PRN #0 inhsol 03/13/17 [Rx] MOM Conc [MILK OF MAGNESIA conc] 5 ml PO HS PRN #0 ud.liq 03/13/17 [Rx] Nicotine Patch [Nicoderm] 21 mg TD DAILY patch.td24 03/13/17 [Rx] OxyCODONE/APAP 5/325 [Percocet 5/325 MG] 1 tab PO Q4HR PRN #40 tablet 03/13/17 [ Rx] Allergies/Adverse Reactions: Allergies No Known Allergies Allergy (Verified 02/28/17 18:39) - Respiratory Orders Smoking Cessation: Smoking cessation has been advised. For more information, call the [place] Tobacco Quit Line at 7-238-QIRM-NOW. - Advance Directives Code Status: Full Code - Mobility Orders Ambulate - Rehabiliation Orders Rehab Potential: Good Rehab Orders: Evaluation for Physical Therapy, Evaluation for Occupational Therapy Other: post-operative care - Diet Orders Cardiac CERTIFICATION: I certify that the transfer of the above named patient to an Extended Care Facility is necessary for the continuing treatment of the diagnosis listed. The above information is true and accurate reflection of patient's current condition. Confidential - Redisclosure prohibited without a patient's written consent.
[2017-03-13] MEDS: Sennosides 8.6 MG TABLET PO SCH (20:07)
[2017-03-13] MEDS: Mirtazapine 15 MG TABLET PO SCH (20:08)
[2017-03-14] MEDS: *HR* OxyCODONE/APAP 5/325 TABLET PO PRN ×4 (02:37→15:21)
[2017-03-14] MEDS: *HR* Heparin 5,000 UNIT/ML VIAL SQ SCH (05:31)
[2017-03-14 06:29] LABS: Hematocrit 32.7 % (37.5-50.1); Hemoglobin 10.7 g/dL (12.9-16.9)
[2017-03-14] MEDS: Gabapentin 300 MG CAPSULE PO SCH ×2 (08:35→15:22)
[2017-03-14] MEDS: Nicotine 21 MG PATCH.TD24 TD SCH (08:35)
[2017-03-14] MEDS: Folic Acid 1 MG TABLET PO SCH (08:36)
[2017-03-14] MEDS: FOSAMAX 10 MG PO SCH (08:36)
[2017-03-14] MEDS: risperiDONE 0.25 MG TABLET PO SCH (08:36)
[2017-03-14] MEDS: Carbidopa/Levodopa 25/100 TABLET PO SCH ×2 (08:36→15:22)
[2017-03-14] MEDS ORDERED: Bisacodyl 10 MG RECTAL SUPPOSITORY RC ONE (10:41)
[2017-03-14 10:47] VITALS: BP 129/67
--- NOTE | 2017-03-14 15:29 | Internal Med Progress Note ---
Date of Encounter: 03/14/17 Time of Encounter: 15:00 - Assessment and plan (1) Left humeral fracture Current Visit: Yes Status: Acute Assessment and plan: Patient diagnosed with a left humeral fracture on 02/28 after a mechanical fall. He was scheduled to have surgical repair by Dr. Renae as outpatient. He underwent preoperative clearance at the [facility] and it was noticed to have an abnormal EKG. Appreciate orthopedic service input. PAtient underwent left reverse total shoulder arthroplasty 03/12 without complication. awaiting insurance approval for rehab placement. Continue pain medications. Qualifiers: Encounter type: initial encounter Humerus Location: proximal Fracture morphology: unspecified fracture morphology Fracture alignment: displaced Qualified Code(s): S42.202A - Unspecified fracture of upper end of left humerus , initial encounter for closed fracture (2) Abnormal EKG Current Visit: Yes Status: Acute Assessment and plan: Preoperative EKG shows new right bundle branch block, SR. Echocardiogram revealed LVEF 60-65%, mild left ventricle diastolic dysfunction, normal right ventricle structure and function, no significant vascular dysfunction, small pericardial effusion, no evidence of pulmonary hypertension. No need for further testing or intervention before surgery. Follow-up in the outpatient clinic. Likely secondary to COPD. (3) COPD (chronic obstructive pulmonary disease) Current Visit: Yes Status: Chronic Assessment and plan: Stable. Continue home medications. DuoNeb's when necessary. Qualifiers: COPD type: unspecified COPD Qualified Code(s): J44.9 - Chronic obstructive pulmonary disease, unspecified (4) PTSD (post-traumatic stress disorder) Current Visit: Yes Status: Chronic Assessment and plan: Continue home medications. (5) Depression Current Visit: Yes Status: Chronic Assessment and plan: Untreated home medications. Qualifiers: Depression Type: unspecified Qualified Code(s): F32.9 - Major depressive disorder, single episode, unspecified (6) Tobacco use Current Visit: No Status: Chronic Assessment and plan: Nicotine patch. Patient counseled to quit smoking. - Subjective Interval history: Patient reports constipation, he would like to have a suppository. - Constitutional Vitals: Temp Pulse Resp BP Pulse Ox 98.7 F 94 16 129/67 96 03/14/17 10:46 03/14/17 10:46 03/14/17 10:46 03/14/17 10:46 03/14/17 10:46 General appearance: Present: cooperative, A&O X 3, pleasant, no acute distress, answers questions appropriately - Neck Neck exam general surgery: Present: supple, trachea midline. Absent: lymphadenopathy - Respiratory Respiratory exam: Present: CTAB - Cardiovascular Cardiovascular exam: Present: RRR - GI/Abdominal GI/Abdominal exam: Present: normal bowel sounds, soft. Absent: distended, tenderness - Extremities Exam Extremities exam: Absent: pedal edema Additional comments: left arm in immobilizer, multiple bruises. - Back Exam Back exam: Absent: CVA tenderness (L), CVA tenderness (R) - Neurological Exam Neurological exam: Present: alert, oriented X3, no focal deficits, strengths equal and symetr throughout. Absent: facial droop, speech deficit - Skin Skin exam: Absent: intact (bruises on left arm) Internal Medicine: Result - Labs CBC & Chem 7: 03/14/17 06:11 03/11/17 03:13 Labs: Short CBC 03/14/17 Range/Units 06:11 Hgb 10.7 L (12.9-16.9) g/dL Hct 32.7 L (37.5-50.1) % - ABG Interpretation ABG results: PT/INR, D-dimer PT 12.6 Seconds (9.4-12.1) H 03/10/17 04:17 - VTE Documentation of Mechanical Device: Intermittent pneumatic compression device Consult Discharge Plan - Plan Additional Instructions: follow up with primary care doctor for COPD, KADY. Discharge Instructions: Total Shoulder Please call [facility] ([phone]), your Primary Care Physician, or report to the Emergency Room if you have any of the following symptoms: Nausea, vomiting, fever greater that 101.5, swelling, chest pain, shortness of breath, increased pain/redness/drainage/odor for your incision site, numbness/ tingling, or any other concerning symptoms. ACTIVITY: Always keep your arm in the sling. Do not raise your arm away from your body. Do not use your arm to help with getting in or out of bed. No weight bearing permitted. Only perform those exercises given to you by your therapist. MEDICATIONS: Upon discharge resume your home medications. Take all the medications as prescribed. Take a stool softener if taking narcotic pain medications. Stool softeners are only effective if you drink enough fluids. Drink 6-8 glass of water or fluids a day, unless this is not allowed for another health problem. Despite using stool softeners, if you haven't had a bowel movement in 3 days, please switch to a gentle laxative. Gentle laxatives are sold over the counter. You should have a bowel movement within 24 hours, if not call the office. You will be discharged from the hospital with a prescription for pain medication. You are encouraged to decrease the use of narcotic pain medication as tolerated. Should you require a refill, please call the office. [facility] prescribes narcotic pain medication for only 4-6 weeks after surgery. If you require pain medication beyond this time period, you may be referred to your Primary Care Physician or to the Pain Clinic for further evaluation. Plan ahead for refills on pain medication as many narcotics either need to be picked up at the office or mailed. It is best to call 48-72 hours in advance of needing a prescription refill so you don't run out of medication. To help control the post-operative pain, you may take NSAIDs (Aleve,Advil, Motrin, Ibuprofen, Naprosyn) or Tylenol as prescribed on the bottle in addition to the pain medication. WOUND CARE: Leave the dressing on for 7-10 days. You may change the dressing if it becomes saturated greater than 50%. Do not get the dressing wet at anytime. Wash your hands with antibacterial soap, rinse and dry prior to any wound care. If you have reynaldo the visiting nurse or rehab facility can remove the stapes 10-14 days after surgery and place steri-strips across the wound. Leave the steri-strips in place until they fall off on their own. You may let water from the shower run on top of the steri-strips. If you do not have a visiting nurse or rehab facility, you will need to return to the office at 10-14 days for the reynaldo to be removed. If you have itching or redness around the dressing call the office. FOLLOW-UP: Please follow up with your surgeon in the orthopedic clinic, as scheduled [facility]errals: [facility] [Primary Care Provider[facility] - Prescriptions: OxyCODONE/APAP 5/325 [Percocet 5/325 MG] 1 tab PO Q4HR PRN #40 tablet PRN Reason: moderate to severe pain
== END 2017-03-14 16:26 | DRG 483 ==
LOC: 3NENU 19:09 → SUATTDRO 19:09
PROVIDERS: ADMIT Internal Medicine; ATTEND Internal Medicine

== ENCOUNTER 2017-08-18 13:29 | Inpatient (IN) ==
[2017-08-18] MEDS ORDERED: methylPREDNISolone 125 MG/2 ML VIAL IVP ONE (13:57)
[2017-08-18] MEDS ORDERED: Ipratropium/Albuterol Neb 3 ML IH ONE (13:57)
--- NOTE | 2017-08-18 13:57 | Emergency Department Note ---
Disposition Clinical Impression: Acute exacerbation of chronic obstructive airways disease Congestive heart failure Qualifiers: Congestive heart failure type: unspecified congestive heart failure type Congestive heart failure chronicity: acute Qualified Code(s): I50.9 - Heart failure, unspecified Disposition: Admitted As Inpatient Condition: Fair Referrals: [facility],PC[facility] [Primary Care Provider] - Forms: ED Satisfaction Letter Time of Disposition: 15:22 SOB HPI - General Chief Complaint: ED Shortness of Breath/Dyspnea Stated Complaint: BISHNU x 1 week/Back pain Time Seen by Provider: 08/18/17 13:34 Source: patient, EMS Limitations: no limitations Nursing Notes Reviewed: Yes Vital Signs Reviewed: Yes - History of Present Illness Patient is a 61-year-old male who presents to [facility] ED with a chief complaint of difficulty breathing. States his symptoms have been worsening over the last few days. Past medical history significant for COPD. Denies any cardiac history. States he has some chest tightness. Denies any nausea, vomiting, fever or chills. No recent cough or cold. No abdominal pain , problems with urination or bowel movements. Patient states this does feel like his COPD flareup. Pt Subjective Complaint: shortness of breath Onset (ago): day(s) Severity: moderate Consistency/Duration: gradually worsening Improves with: nothing Worsens with: nothing Known history of: COPD Associated symptoms: Reports: chest pain, orthopnea (intermittent). Denies: fever, cough Treatment prior to arrival: none Cough present: No - Related Data Home oxygen amount: none Home Medications Medication Instructions Recorded Confirmed Alendronate Sodium [Fosamax] 10 mg PO DAILY 03/09/17 03/10/17 Budesonide/Formoterol 160/4.5 2 puff IH BID 03/09/17 03/10/17 [Symbicort 160/4.5] Carbidopa/Levodopa 1 tab PO TID 03/09/17 03/10/17 [Carbidopa-Levodopa 25-100 Tab] Chlorhexidine Gluconate [Hand Wash] 15 ml PO BID 03/09/17 03/10/17 Docusate Sodium 200 mg PO HS 03/09/17 03/10/17 Folic Acid 1 mg PO DAILY 03/09/17 03/10/17 Gabapentin [Neurontin] 600 mg PO TID 03/09/17 03/10/17 Mirtazapine [Remeron] 30 mg PO HS 03/09/17 03/10/17 Omeprazole 20 mg PO DAILY 03/09/17 03/10/17 Pravastatin Sodium 10 mg PO HS 03/09/17 03/10/17 Sennosides [Laxative] 17.2 mg PO HS 03/09/17 03/10/17 Sertraline [Zoloft] 25 mg PO DAILY 03/09/17 03/10/17 risperiDONE [Risperidone] 0.5 mg PO BID 03/09/17 03/10/17 Previous Rx's Medication Instructions Recorded Ipratropium/Albuterol Neb [Duoneb] 3 ml IH [id number] PRN #0 inhsol 03/13/17 MOM Conc [MILK OF MAGNESIA conc] 5 ml PO HS PRN #0 [id number] 03/13/17 Nicotine Patch [Nicoderm] 21 mg TD DAILY patch.td24 03/13/17 OxyCODONE/APAP 5/325 [Percocet 1 tab PO Q4HR PRN #40 tablet 03/13/17 5/325 MG] Allergies Allergy/AdvReac Type Severity Reaction Status Date / Time No Known Allergies Allergy Verified 02/28/17 18:39 All systems ED: reviewed and negative except as stated. Past Medical History - Past Medical History Attestation: Yes The following information was validated with the patient. Source: patient Medical history: Reports: arthritis, COPD, GERD, osteoporosis Surgical history: Reports: other (egd/dilatation for esophageal stricture) Psychiatric history: Reports: depression, PTSD - Social History Smoking Status: Current every day smoker Smokeless Tobacco Status: No Alcohol use: Reports: none Drug use: Reports: none Physical Exam - General Limitations: no limitations General appearance: alert, in no apparent distress - Head Head exam: atraumatic, normocephalic, normal inspection - Eye Eye exam: Present: normal appearance, EOMI - ENT ENT exam: normal exam, normal oropharynx, mucous membranes moist - Neck Neck exam: Present: normal inspection, full ROM, trachea midline - Chest Chest inspection: Present: normal inspection, symmetric chest wall rise - Respiratory Respiratory exam: Present: normal lung sounds bilaterally - Cardiovascular Cardiovascular exam: Present: regular rate, normal rhythm, normal heart sounds - Abdominal Exam Abdominal exam: Present: soft, Non-Tender. Absent: tenderness, distention, guarding, rebound, rigidity - Extremities Exam Extremities exam: Present: pedal edema (3+ pitting) - Back Exam Back exam: Present: normal inspection, full ROM, paraspinal tenderness - Neurological Exam Neurological exam: Present: alert, oriented X3 - Psychiatric Psychiatric exam: Present: normal affect, normal mood - Skin Skin exam: Present: warm, dry, intact, normal color Course Course Narrative: Patient seen and examined. Difficulty breathing. Patient has diffuse wheezes throughout all lung quadrants. Triple DuoNeb ordered. We will give a dose of Solu-Medrol. Cardiopulmonary workup initiated. He does have 3+ pitting edema in the lower extremities. Suspect some degree of heart failure though he denies any prior history of heart problems. - Reevaluation(s) Reevaluation #1: Lab work shows elevated BNP of 1500. No prior for comparison. Chest x-ray shows signs of mild CHF as well as enlarged cardiac silhouette. I did do a bedside ultrasound to evaluate for pericardial effusion. There was a technically difficult study. Possible signs of a mild pericardial effusion. We will admit for congestive heart failure and COPD exacerbation. The patient' s back pain ongoing over the last 3 days. Will give a dose of Percocet to help with his pain. Time: 14:40 Reevaluation #2: Discussed with hospitalist Dr. Tolliver who has accepted patient for admission. Time: 15:23 Vital Signs Temperature 97.8 F 08/18/17 13:30 Pulse Rate 65 08/18/17 13:30 Respiratory Rate 18 08/18/17 13:30 Blood Pressure 136/91 08/18/17 13:30 O2 Sat by Pulse Oximetry 96 08/18/17 13:30 Temperature 97.8 F 08/18/17 13:30 Pulse Rate 65 08/18/17 13:30 Respiratory Rate 18 08/18/17 13:30 Blood Pressure 136/91 08/18/17 13:30 O2 Sat by Pulse Oximetry 96 08/18/17 13:30 Oxygen Delivery Oxygen Delivery Room Air Shortness of Breath/Dyspnea - Medical Records Medical records reviewed: Yes I reviewed the patient's medical records. - Lab Data Lab results reviewed: Yes I reviewed the patient's lab results. Result diagrams: 08/18/17 14:08 08/18/17 14:08 Lab Results 08/18/17 08/18/17 08/18/17 Range/Units 14:08 14:08 14:08 WBC 7.8 (4.3-11.1) K/mcL RBC 4.09 L (4.19-5.50) M/mcL Hgb 11.3 L (12.9-16.9) g/dL Hct 35.6 L (37.5-50.1) % MCV 87.0 (83.0-100.0) fL MCH 27.6 L (28.0-33.3) pg MCHC 31.7 (31.6-35.5) g/dL RDW 15.3 H (11.5-14.5) % Plt Count 173 (140-400) K/mcL MPV 11.6 (9.4-12.4) fL Immature Gran % 0.3 (0-4) % Seg Neutrophils % 77.1 % Lymphocytes % 13.5 % Monocytes % 6.0 % Eosinophils % 2.2 % Basophils % 0.9 % Neutrophils # 6.0 (1.6-8.9) K/mcL Lymphocytes # 1.1 (0.6-4.6) K/mcL Monocytes # 0.5 (0.0-1.3) K/mcL Eosinophils # 0.2 (0.0-0.6) K/mcL Basophils # 0.1 (0.0-0.2) K/mcL Sodium 140 (136-145) mEq/L Potassium 4.2 (3.5-4.5) mEq/L Chloride 104 (98-109) mEq/L Carbon Dioxide 28 (19-29) mEq/L BUN 15 (8-26) mg/dL Creatinine 0.84 (0.72-1.25) mg/dL Est GFR ( Amer) > 60 (> 60) Est GFR (Non-Af Amer) > 60 (> 60) BUN/Creatinine Ratio 18 (6-26) Glucose 108 H (70-99) mg/dL Calculated Osmolality 291 (280-300) Lactic Acid 1.6 (0.5-2.2) mmol/L Calcium 9.2 (8.6-10.8) mg/dL Troponin I (0-0.03) ng/mL B-Natriuretic Peptide (0-100) pg/mL 08/18/17 08/18/17 Range/Units 14:08 14:08 WBC (4.3-11.1) K/mcL RBC (4.19-5.50) M/mcL Hgb (12.9-16.9) g/dL Hct (37.5-50.1) % MCV (83.0-100.0) fL MCH (28.0-33.3) pg MCHC (31.6-35.5) g/dL RDW (11.5-14.5) % Plt Count (140-400) K/mcL MPV (9.4-12.4) fL Immature Gran % (0-4) % Seg Neutrophils % % Lymphocytes % % Monocytes % % Eosinophils % % Basophils % % Neutrophils # (1.6-8.9) K/mcL Lymphocytes # (0.6-4.6) K/mcL Monocytes # (0.0-1.3) K/mcL Eosinophils # (0.0-0.6) K/mcL Basophils # (0.0-0.2) K/mcL Sodium (136-145) mEq/L Potassium (3.5-4.5) mEq/L Chloride (98-109) mEq/L Carbon Dioxide (19-29) mEq/L BUN (8-26) mg/dL Creatinine (0.72-1.25) mg/dL Est GFR ( Amer) (> 60) Est GFR (Non-Af Amer) (> 60) BUN/Creatinine Ratio (6-26) Glucose (70-99) mg/dL Calculated Osmolality (280-300) Lactic Acid (0.5-2.2) mmol/L Calcium (8.6-10.8) mg/dL Troponin I 0.03 (0-0.03) ng/mL B-Natriuretic Peptide 1568 H (0-100) pg/mL - Radiology Data Radiology results reviewed: Yes I reviewed the patient's radiology results. Chest X-Ray 08/18/17 13:57 IMPRESSION: 1. The combination of cardiopericardial silhouette enlargement, a small right pleural effusion, and mild interstitial pulmonary edema all suggests mild CHF. The enlarged cardiopericardial silhouette could also represent a pericardial effusion in the right clinical setting. 2. Mild right basilar atelectasis. D/ / Zack Love MD / Zack Love MD Interpreting Provider: Zack Love MD - EKG Data EKG attestation: Yes I reviewed and interpreted this EKG. EKG results narrative: EKG done at 1334 shows normal sinus rhythm with a rate of 68 bpm. First-degree AV block present. Right axis deviation noted. Inverted T waves in leads 3 and aVF. Low voltage throughout. Critical Care Time Critical Care Time: Yes Total Critical Care Time: 35 Attestation: Critical care time 35 minutes managing new onset CHF with IV medication. Attestation Statement - Attestation Attestation: Patient was seen with resident physician. I reviewed the history, physical, assessment and plan, and agree with the findings. I also personally evaluated this patient and had [id number] time with this patient. 61-year-old male presents to the emergency department with a chief complaint shortness of breath and back pain. Patient states that he has had worsening shortness of breath the last couple days. Denies fevers or chills. Says is getting harder for him to get around. Also notes swelling in his legs. Has a history of COPD in the past and thinks she might be having a COPD exacerbation. On examination vital signs are stable. ENT is unremarkable. Heart regular rhythm and rate. Lungs diffuse wheezing and some crackles throughout with increased work of breathing. Abdomen is soft and nontender. Extremities 1-2+ edema bilaterally and symmetrically with no posterior calf or thigh pain. Neurologically the patient moves all extremities and answers all questions appropriately. ED course labs are significant for markedly elevated BNP. Chest x-ray shows findings consistent with CHF. We did do a bedside ultrasound could not see significant pericardial effusion. With the new onset of CHF patient will quire admission. He was feeling somewhat better with breathing treatments. Hospitalist service was notified to arrange for admission. Agree to accept the patient. I agree with the resident physician assessment and plan.
[2017-08-18 14:15] LABS: Basophils # 0.1 K/mcL (0.0-0.2); Basophils % 0.9 %; Eosinophils # 0.2 K/mcL (0.0-0.6); Eosinophils % 2.2 %; Hematocrit 35.6 % (37.5-50.1); Hemoglobin 11.3 g/dL (12.9-16.9); Immature Granulocytes % 0.3 % (0-4); Lymphocytes # 1.1 K/mcL (0.6-4.6); Lymphocytes % 13.5 %; Mean Corpuscular HGB Conc 31.7 g/dL (31.6-35.5); Mean Corpuscular Hemoglobin 27.6 pg (28.0-33.3); Mean Platelet Volume 11.6 fL (9.4-12.4); Monocytes # 0.5 K/mcL (0.0-1.3); Platelet Count 173 K/mcL (140-400); Red Blood Count 4.09 M/mcL (4.19-5.50); Red Cell Distribution Width 15.3 % (11.5-14.5); Segmented Neutrophils % 77.1 %
[2017-08-18 14:27] LABS: BUN/Creatinine Ratio 18 (6-26); Blood Urea Nitrogen 15 mg/dL (8-26); Calcium 9.2 mg/dL (8.6-10.8); Carbon Dioxide 28 mEq/L (19-29); Chloride 104 mEq/L (98-109); Glucose 108 mg/dL (70-99); Osmolality,Calculated 291 (280-300); Potassium 4.2 mEq/L (3.5-4.5); Sodium 140 mEq/L (136-145); eGFR For African Americans > 60 (> 60); eGFR For Non-African Americans > 60 (> 60)
[2017-08-18] MEDS ORDERED: Furosemide 40 MG/4 ML VIAL IVP ONE (14:45)
[2017-08-18] MEDS ORDERED: *HR* OxyCODONE/APAP 5/325 TABLET PO ONE (15:23)
--- NOTE | 2017-08-18 16:27 | Internal Med History&Physical ---
Date of Encounter: 08/18/17 Time of Encounter: 16:25 Assessment and Plan (1) Tobacco abuse Current visit: Yes Status: Acute I advised smoking cessation. Provide nicotine replacement therapy. (2) GERD (gastroesophageal reflux disease) Current visit: Yes Status: Acute We will treat with oral PPI Qualifiers: Esophagitis presence: without esophagitis Qualified Code(s): K21.9 - Gastro -esophageal reflux disease without esophagitis (3) Congestive heart failure Current visit: Yes Status: Acute Unknown ejection fraction. Clinically and radiologically he is in CHF. BNP is elevated We will treat with IV Lasix. Check troponin to rule out ACS as a potential triggering event. Monitor on telemetry. Strict I's and O's. Low-sodium diet. Daily weights. Obtain echocardiogram. Consult cardiology for ischemic workup. Qualifiers: Congestive heart failure type: unspecified congestive heart failure type Congestive heart failure chronicity: acute Qualified Code(s): I50.9 - Heart failure, unspecified (4) DVT prophylaxis Current visit: No Status: Acute We will provide Lovenox prophylaxis. He is sedentary and has decreased ambulation and therefore at high risk for DVT. (5) COPD (chronic obstructive pulmonary disease) Current visit: No Status: Chronic No evidence of exacerbation. We will use DuoNeb as needed. Qualifiers: COPD type: chronic bronchitis Chronic bronchitis type: simple Qualified Code(s): J41.0 - Simple chronic bronchitis (6) PTSD (post-traumatic stress disorder) Current visit: No Status: Chronic Continue with Zoloft and risperidone per his home regimen Internal Medicine - H&P: HPI Chief complaint: Shortness of breath Admitted From: Emergency Dept Plans for Post Hospital Care: Home History of present illness: Mr. Miguel is a 61 year old male with past medical history significant for arthritis and GERD who presented to the hospital due to worsening shortness of breath for one week. Today it was severe, was occurring at rest, worse with normal exertion. Reports associated 6/10 lower sternal sharp and stabbing chest pain in 8/10 back pain. Denies worsening in cough, sputum production, fevers, chills, nausea, vomiting, diarrhea and constipation. A chest x-ray done in the emergency department suggested enlarged heart and findings consistent with heart failure. A 10 point review of systems was negative except as above. Past medical history: Arthritis and GERD. Surgical history: Left shoulder replacement Family history: Positive for prostate cancer in patient's father. Social history: He smokes one pack of cigarettes a day, denies alcohol and drug abuse. Past Med Surg Social Fam HX - Past Medical History Medical history: arthritis, COPD, GERD, osteoporosis Psychiatric history: depression, PTSD - Past Surgical History Surgical History: other (egd/dilatation for esophageal stricture) - Social History Smoking Status: Current every day smoker Smokeless Tobacco Status: No Alcohol use: none Drug use: none - Family History Mother Living Status: Hx Family Cardiac Disorders: Yes (htn) Father Living Status: Internal Medicine - H&P: Meds Alendronate Sodium [Fosamax] 10 mg PO DAILY 03/09/17 [History] Budesonide/Formoterol 160/4.5 [Symbicort 160/4.5] 2 puff IH BID 03/09/17 [ History] Carbidopa/Levodopa [Carbidopa-Levodopa 25-100 Tab] 1 tab PO TID 03/09/17 [ History] Docusate Sodium 200 mg PO HS 03/09/17 [History] Folic Acid 1 mg PO DAILY 03/09/17 [History] Gabapentin [Neurontin] 600 mg PO TID 03/09/17 [History] Mirtazapine [Remeron] 30 mg PO HS 03/09/17 [History] Omeprazole 20 mg PO DAILY 03/09/17 [History] Pravastatin Sodium 10 mg PO HS 03/09/17 [History] Sertraline [Zoloft] 25 mg PO DAILY 03/09/17 [History] risperiDONE [Risperidone] 0.5 mg PO BID 03/09/17 [History] Ipratropium/Albuterol Neb [Duoneb] 3 ml IH [id number] PRN #0 inhsol 03/13/17 [Rx] OxyCODONE/APAP 5/325 [Percocet 5/325 MG] 1 tab PO Q4HR PRN #40 tablet 03/13/17 [ Rx] 3 Allergy/AdvReac Type Severity Reaction Status Date / Time No Known Allergies Allergy Verified 02/28/17 18:39 All Systems PM: A 10-system review of systems was performed and is negative for pertinent findings except as documented above in the HPI. - Constitutional Vitals: Temp Pulse Resp BP Pulse Ox 97.8 F 65 18 132/94 96 08/18/17 16:15 08/18/17 13:30 08/18/17 16:15 08/18/17 16:15 08/18/17 13:30 General appearance: Present: A&O X 3 - Eye Eye exam: Present: PERRL, conjuntiva pink, sclera anicteric Pupils: Present: PERRL - Neck Neck exam general surgery: Present: supple, trachea midline. Absent: lymphadenopathy - Respiratory Respiratory exam: Present: rales. Absent: accessory muscle use, rhonchi, wheezes - Cardiovascular Cardiovascular exam: Present: irregular rhythm, +S1, +S2. Absent: diastolic murmur, gallop, rubs, systolic murmur - GI/Abdominal GI/Abdominal exam: Present: normal bowel sounds, soft, no peritoneal signs. Absent: distended, tenderness - Extremities Exam Extremities exam: Present: pedal edema, warm, radial pulses palpable and symmetrical. Absent: calf tenderness, cyanotic - Neurological Exam Neurological exam: Present: CN II-XII intact, oriented X3, no focal deficits. Absent: pronater drift, facial droop, speech deficit - Skin Skin exam: Present: dry, intact Internal Med - H&P Results - Labs CBC & Chem 7: 08/18/17 14:08 08/18/17 14:08 Labs: Short CBC 08/18/17 Range/Units 14:08 WBC 7.8 (4.3-11.1) K/mcL Hgb 11.3 L (12.9-16.9) g/dL Hct 35.6 L (37.5-50.1) % Plt Count 173 (140-400) K/mcL Neutrophils # 6.0 (1.6-8.9) K/mcL BMP 08/18/17 14:08 Sodium 140 Potassium 4.2 Chloride 104 Carbon Dioxide 28 BUN 15 Creatinine 0.84 Glucose 108 H Calcium 9.2 Cardiac Enzymes 08/18/17 Range/Units 14:08 Troponin I 0.03 (0-0.03) ng/mL - EKG Data -: EKG Interpreted by Myself - EKG Data EKG comments: 08/18/17 17:53 EKG from today shows normal sinus rhythm 68 bpm with first-degree AV block and right bundle branch block which are old when compared with EKG from February 2017. Also today's EKG has low voltage in precordial leads new when compared to EKG from 03/10/2017 - Impressions ITS Impressions Chest X-Ray 08/18/17 13:57 IMPRESSION: 1. The combination of cardiopericardial silhouette enlargement, a small right pleural effusion, and mild interstitial pulmonary edema all suggests mild CHF. The enlarged cardiopericardial silhouette could also represent a pericardial effusion in the right clinical setting. 2. Mild right basilar atelectasis. D/ / 08/18/2017 16:02:47 Zack Love MD / galindo Interpreting Provider: Zack Love MD Chest x-ray reviewed by myself shows pulmonary edema, enlarged heart, bilateral small pleural effusions consistent with acute heart failure.
[2017-08-18] MEDS ORDERED: Naloxone 0.4 MG/ML INJ IVP PRN (18:08)
[2017-08-18] MEDS ORDERED: Acetaminophen 325 MG TABLET PO PRN (18:08)
[2017-08-18] MEDS ORDERED: Ondansetron 4 MG/2 ML VIAL IVP PRN (18:08)
[2017-08-18] MEDS: Furosemide 20 MG/2 ML VIAL IVP SCH (18:39)
[2017-08-18] MEDS: Gabapentin 300 MG CAPSULE PO SCH (20:13)
[2017-08-18] MEDS: risperiDONE 0.25 MG TABLET PO SCH (20:14)
[2017-08-18] MEDS: *HR* OxyCODONE/APAP 5/325 TABLET PO PRN (20:14)
[2017-08-18] MEDS: Mirtazapine 15 MG TABLET PO SCH (20:14)
[2017-08-18] MEDS: Carbidopa/Levodopa 25/100 TABLET PO SCH (20:14)
[2017-08-18] MEDS: Budesonide/Formoterol 160/4.5 MDI IH SCH (21:03)
[2017-08-19] MEDS: *HR* OxyCODONE/APAP 5/325 TABLET PO PRN ×4 (00:37→19:58)
[2017-08-19 00:39] LABS: Basophils % 0.1 %; Hematocrit 35.6 % (37.5-50.1); Hemoglobin 11.6 g/dL (12.9-16.9); Immature Granulocytes % 0.3 % (0-4); Lymphocytes # 0.6 K/mcL (0.6-4.6); Lymphocytes % 7.8 %; Mean Corpuscular HGB Conc 32.6 g/dL (31.6-35.5); Mean Corpuscular Hemoglobin 27.7 pg (28.0-33.3); Monocytes # 0.2 K/mcL (0.0-1.3); Monocytes % 2.1 %; Neutrophils # 6.4 K/mcL (1.6-8.9); Platelet Count 191 K/mcL (140-400); Red Blood Count 4.19 M/mcL (4.19-5.50); Red Cell Distribution Width 15.1 % (11.5-14.5); Segmented Neutrophils % 89.7 %
[2017-08-19 00:50] LABS: BUN/Creatinine Ratio 14 (6-26); Blood Urea Nitrogen 16 mg/dL (8-26); Calcium 9.5 mg/dL (8.6-10.8); Carbon Dioxide 30 mEq/L (19-29); Chloride 104 mEq/L (98-109); Glucose 145 mg/dL (70-99); Magnesium 1.8 mg/dL (1.6-2.6); Osmolality,Calculated 298 (280-300); Potassium 4.1 mEq/L (3.5-4.5); Sodium 142 mEq/L (136-145); eGFR For African Americans > 60 (> 60); eGFR For Non-African Americans > 60 (> 60)
[2017-08-19] MEDS: *HR* Enoxaparin 40 MG/0.4 ML SYRINGE SQ SCH (06:25)
[2017-08-19] MEDS: Budesonide/Formoterol 160/4.5 MDI IH SCH ×2 (08:08→22:07)
[2017-08-19] MEDS ORDERED: ALENDRONATE SODIUM 10 MG PO SCH (09:00)
[2017-08-19] MEDS ORDERED: Perflutren Lipid Microsphere 1.3 ML in 0.9 % Sodium Chloride 8.7 ML IVP ONE (09:20)
[2017-08-19] MEDS: Folic Acid 1 MG TABLET PO SCH (10:17)
[2017-08-19] MEDS: Gabapentin 300 MG CAPSULE PO SCH ×3 (10:18→19:59)
[2017-08-19] MEDS: risperiDONE 0.25 MG TABLET PO SCH ×2 (10:18→19:59)
[2017-08-19] MEDS: Furosemide 20 MG/2 ML VIAL IVP SCH ×2 (10:18→18:14)
[2017-08-19] MEDS: Carbidopa/Levodopa 25/100 TABLET PO SCH ×3 (10:19→19:59)
--- NOTE | 2017-08-19 10:38 | Cardiology Consult Note ---
Date of Encounter: 08/19/17 Time of Encounter: 09:10 Assessment and Plan (1) Congestive heart failure Current Visit: Yes Status: Acute Acute CHF. No previous history. SOB likely multifactoral in the setting of known COPD. BNP 1568. CXR shows changes concerning for mild CHF and possible pericardial effusion. Troponin negative x 3. TTE ordered. TTE 02/2017 showed preserved EF, mild diastolic dysfunction, and no significant valvular disease. Patient does eat high sodium diet. Meals mostly consist of boxed or canned foods. Low sodium diet discussed. Strict I&O and daily weights. on 20 mg IV lasix BID, recently started. Currently 560ml net negative. Symptoms improved. Monitor BMP. Further recs pending echo. Qualifiers: Congestive heart failure type: unspecified congestive heart failure type Congestive heart failure chronicity: acute Qualified Code(s): I50.9 - Heart failure, unspecified Discussion w patient/family: The assessment and plan as outlined above was discussed with the patient and/or family members who expressed understanding and agreement. All questions were answered. Thank you for involving us in the care of your patient. Please call with any questions. History of Present Illness Consult date: 08/19/17 Requesting physician: Dillan Beavers Consult reason: CHF Chief complaint: SOB, BLE edema, and cough for one week. History of present illness: Mr. Miguel is a 61 year old male with a history of GERD, COPD, tobacco use, and PTSD who comes from a long term with SOB. He c/o SOB, BLE, orthopnea, and cough productive of yellow sputum for one week. C/o chest tightness that feels like chest congestion. He is found to have elevated BNP at 1568 and CXR shows possible mild CHF and pericardial effusion. Denies cardiac history. Cardiology consulted for CHF. Past Med Surg Social Fam HX - Past Medical History Attestation: Yes The following information was validated with the patient. Medical history: arthritis, COPD, GERD, osteoporosis Psychiatric history: depression, PTSD - Past Surgical History Surgical History: other - Social History Smoking Status: Current every day smoker Packs per day: 1 Smokeless Tobacco Status: No Alcohol use: none Drug use: none - Family History Mother Living Status: Hx Family Cardiac Disorders: Yes (htn) Hx Family Neurologic Disorders: Yes (Stroke) Father Living Status: Medications and Allergies Alendronate Sodium [Fosamax] 10 mg PO DAILY 03/09/17 [History] Budesonide/Formoterol 160/4.5 [Symbicort 160/4.5] 2 puff IH BID 03/09/17 [ History] Carbidopa/Levodopa [Carbidopa-Levodopa 25-100 Tab] 1 tab PO TID 03/09/17 [ History] Docusate Sodium 200 mg PO HS 03/09/17 [History] Folic Acid 1 mg PO DAILY 03/09/17 [History] Gabapentin [Neurontin] 600 mg PO TID 03/09/17 [History] Mirtazapine [Remeron] 30 mg PO HS 03/09/17 [History] Omeprazole 20 mg PO DAILY 03/09/17 [History] Pravastatin Sodium 10 mg PO HS 03/09/17 [History] Sertraline [Zoloft] 25 mg PO DAILY 03/09/17 [History] risperiDONE [Risperidone] 0.5 mg PO BID 03/09/17 [History] Ipratropium/Albuterol Neb [Duoneb] 3 ml IH [id number] PRN #0 inhsol 03/13/17 [Rx] OxyCODONE/APAP 5/325 [Percocet 5/325 MG] 1 tab PO Q4HR PRN #40 tablet 03/13/17 [ Rx] 3 Allergy/AdvReac Type Severity Reaction Status Date / Time No Known Allergies Allergy Verified 02/28/17 18:39 All Systems Review: A 10-system review of systems was performed and is negative for pertinent findings except as documented above in the HPI. Physical Examination Vital Signs, Last 4 Hours Temp Pulse Resp BP Pulse Ox 08/19/17 08:20 98.6 F 68 18 109/69 96 08/19/17 08:09 17 95 General: Conversant, No Apparent Distress, Other (Dishevealed, poor historian) HEENT: Atraumatic, Normocephaly, Mucus Membranes Moist Neck: No JVD, Normal carotid pulses Cardiac: Reg Rate and Rhythm, Normal S1 and S2, No Murmur Lungs: Other (Respirations easy, faint wheezes scattered throughout. ) Neuro: Alert and responsive, No focal deficits noted Abdomen: Soft, Non-Tender Skin: No rashes noted on visualized skin Musculoskeletal: No Chest Wall Tenderness Extremities: No Clubbing, No Cyanosis, Normal Pulses, Other (Trace BLE edema) Results 08/19/17 00:30 08/19/17 00:30 Lab Results 08/18/17 08/19/17 08/19/17 18:26 00:30 00:30 WBC 7.1 Hgb 11.6 L Hct 35.6 L Plt Count 191 Sodium Potassium Chloride Carbon Dioxide BUN Creatinine Glucose Calcium Magnesium Troponin I 0.03 0.02 08/19/17 00:30 WBC Hgb Hct Plt Count Sodium 142 Potassium 4.1 Chloride 104 Carbon Dioxide 30 H BUN 16 Creatinine 1.14 Glucose 145 H Calcium 9.5 Magnesium 1.8 Troponin I Chest X-Ray 08/18/17 13:57 IMPRESSION: 1. The combination of cardiopericardial silhouette enlargement, a small right pleural effusion, and mild interstitial pulmonary edema all suggests mild CHF. The enlarged cardiopericardial silhouette could also represent a pericardial effusion in the right clinical setting. 2. Mild right basilar atelectasis. D/ / 08/18/2017 16:02:47 Zack Love MD / galindo Interpreting Provider: Zack Love MD - Imaging and Cardiology Echo: report reviewed - EKG Interpretation EKG results cardiology: personally reviewed (Sr RBBB, 1st degree AV block.) Consult Discharge Plan - Plan [facility]errals: [facility] [Primary Care Provider] -
--- NOTE | 2017-08-19 14:40 | Internal Med Progress Note ---
Date of Encounter: 08/19/17 Time of Encounter: 11:40 - Assessment and plan (1) Acute diastolic CHF (congestive heart failure) Current Visit: Yes Status: Acute Assessment and plan: Reviewed 2 D echo showed LVEF 45-50%, Severe hypokinesis to akinesis of the inferior wall Moderate LV Diastolic dysfunction Cont IV diuresis with Lasix 20mg BID Started on ASA, BB and statin by Card Card is on board Scheduled for LHC in AM (2) Acute bronchitis Current Visit: Yes Status: Acute Assessment and plan: Does have purulent bronchitis started on doxycycline Qualifiers: Qualified Code(s): J20.9 - Acute bronchitis, unspecified (3) Acute chest pain Current Visit: Yes Status: Acute Assessment and plan: so far negative troponin no cp now cont ASA, Statin and BB Scheduled for LHC In AM (4) COPD (chronic obstructive pulmonary disease) Current Visit: No Status: Chronic Assessment and plan: stable not in exacerbatipn cont duoneb prn no need of steroids Qualifiers: COPD type: chronic bronchitis Chronic bronchitis type: simple Qualified Code(s): J41.0 - Simple chronic bronchitis (5) DVT prophylaxis Current Visit: No Status: Acute Assessment and plan: on Lovenox (6) PTSD (post-traumatic stress disorder) Current Visit: No Status: Chronic Assessment and plan: resumed home meds (7) Tobacco use Current Visit: No Status: Chronic Assessment and plan: counseled to quit smoking placed him on nicotine patch - Subjective Interval history: Mr. Miguel is a 61 year old male with past medical history significant for arthritis and GERD who presented to the hospital due to worsening shortness of breath for one week. Today it was severe, was occurring at rest, worse with normal exertion. Reports associated 6/10 lower sternal sharp and stabbing chest pain in 8/10 back pain. He denied any active CP now. His SOB also better today. Still has cough with brownish expectoration. - Constitutional Vitals: Temp Pulse Resp BP Pulse Ox 98.0 F 70 18 102/64 93 08/19/17 11:59 08/19/17 11:59 08/19/17 11:59 08/19/17 11:59 08/19/17 11:59 General appearance: Present: cooperative, A&O X 3, no acute distress, answers questions appropriately - Head Head exam: Present: atraumatic, normal inspection - Respiratory Respiratory exam: Present: decreased breath sounds, rales, wheezes (mild). Absent: respiratory distress, rhonchi - Cardiovascular Cardiovascular exam: Present: RRR, +S1, +S2. Absent: systolic murmur - GI/Abdominal GI/Abdominal exam: Present: normal bowel sounds, soft. Absent: rebound, rigid, tenderness - Extremities Exam Extremities exam: Present: pedal edema. Absent: calf tenderness, tenderness - Neurological Exam Neurological exam: Present: alert, oriented X3 - Psychiatric Psychiatric exam: Present: normal affect, normal mood Internal Medicine: Result - Labs CBC & Chem 7: 08/19/17 00:30 08/19/17 00:30 Labs: Short CBC 08/19/17 Range/Units 00:30 WBC 7.1 (4.3-11.1) K/mcL Hgb 11.6 L (12.9-16.9) g/dL Hct 35.6 L (37.5-50.1) % Plt Count 191 (140-400) K/mcL Neutrophils # 6.4 (1.6-8.9) K/mcL BMP 08/19/17 00:30 Sodium 142 Potassium 4.1 Chloride 104 Carbon Dioxide 30 H BUN 16 Creatinine 1.14 Glucose 145 H Calcium 9.5 Cardiac Enzymes 08/18/17 08/19/17 Range/Units 18:26 00:30 Troponin I 0.03 0.02 (0-0.03) ng/mL Consult Discharge Plan - Plan [facility]errals: [facility] [Primary Care Provider] -
[2017-08-19] MEDS ORDERED: Levofloxacin 750 MG/150 ML 750 MG/150 ML BAG IVPB SCH (15:00)
[2017-08-19] MEDS: Doxycycline 100 MG in 0.9 % Sodium Chloride Mini Bag 100 ML IVPB SCH (15:35)
[2017-08-19] MEDS: Aspirin 81 MG TAB.CHEW PO SCH (15:35)
[2017-08-19] MEDS: Metoprolol XL (24 HR) Succ 25 MG TAB.ER.24H PO SCH (15:35)
[2017-08-19] MEDS: Mirtazapine 15 MG TABLET PO SCH (19:58)
[2017-08-20] MEDS: Doxycycline 100 MG in 0.9 % Sodium Chloride Mini Bag 100 ML IVPB SCH ×2 (03:00→18:38)
[2017-08-20] MEDS: *HR* OxyCODONE/APAP 5/325 TABLET PO PRN ×3 (03:09→20:40)
[2017-08-20 04:45] LABS: Basophils # 0.1 K/mcL (0.0-0.2); Basophils % 1.2 %; Eosinophils # 0.1 K/mcL (0.0-0.6); Eosinophils % 1.3 %; Hematocrit 35.2 % (37.5-50.1); Hemoglobin 11.2 g/dL (12.9-16.9); Immature Granulocytes % 0.3 % (0-4); Lymphocytes # 2.1 K/mcL (0.6-4.6); Lymphocytes % 26.9 %; Mean Corpuscular HGB Conc 31.8 g/dL (31.6-35.5); Mean Corpuscular Hemoglobin 27.3 pg (28.0-33.3); Mean Corpuscular Volume 85.9 fL (83.0-100.0); Mean Platelet Volume 12.3 fL (9.4-12.4); Monocytes # 0.5 K/mcL (0.0-1.3); Monocytes % 6.9 %; Neutrophils # 4.9 K/mcL (1.6-8.9); Platelet Count 189 K/mcL (140-400); Red Cell Distribution Width 15.1 % (11.5-14.5); Segmented Neutrophils % 63.4 %
[2017-08-20 05:04] LABS: BUN/Creatinine Ratio 23 (6-26); Calcium 9.6 mg/dL (8.6-10.8); Carbon Dioxide 31 mEq/L (19-29); Chloride 103 mEq/L (98-109); Glucose 98 mg/dL (70-99); Magnesium 1.6 mg/dL (1.6-2.6); Osmolality,Calculated 299 (280-300); Potassium 3.9 mEq/L (3.5-4.5); Sodium 142 mEq/L (136-145); eGFR For African Americans > 60 (> 60); eGFR For Non-African Americans 60 (> 60)
[2017-08-20 05:08] LABS: Blood Urea Nitrogen 28 mg/dL (8-26)
[2017-08-20] MEDS: *HR* Enoxaparin 40 MG/0.4 ML SYRINGE SQ SCH (06:32)
--- NOTE | 2017-08-20 06:33 | Electrocardiograph Report ---
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
[2017-08-20] MEDS: Budesonide/Formoterol 160/4.5 MDI IH SCH ×2 (08:17→19:38)
[2017-08-20] MEDS: Folic Acid 1 MG TABLET PO SCH (09:12)
[2017-08-20] MEDS: Aspirin 81 MG TAB.CHEW PO SCH (09:12)
[2017-08-20] MEDS: risperiDONE 0.25 MG TABLET PO SCH ×2 (09:12→20:25)
[2017-08-20] MEDS: Carbidopa/Levodopa 25/100 TABLET PO SCH ×3 (09:12→20:25)
[2017-08-20] MEDS: Gabapentin 300 MG CAPSULE PO SCH ×3 (09:12→20:25)
[2017-08-20] MEDS: Furosemide 20 MG/2 ML VIAL IVP SCH (09:12)
[2017-08-20] MEDS: Metoprolol XL (24 HR) Succ 25 MG TAB.ER.24H PO SCH (09:12)
--- NOTE | 2017-08-20 10:00 | Internal Med Progress Note ---
<Tc W[place] - Last Filed: 08/20/17 13:12> Date of Encounter: 08/20/17 Time of Encounter: 11:34 - Assessment and plan (1) Acute diastolic CHF (congestive heart failure) Current Visit: Yes Status: Acute Assessment and plan: Echo shows LVEF 45-50%, hypokinesis of inferior wall, possible hypertrophic cardiomyopathy. LHC pending this morning. Cardiology started ASA, BB, statin 08/19. (2) Acute bronchitis Current Visit: Yes Status: Acute Assessment and plan: Continue doxycycline. Adventitious breath sounds improving. Trace wheeze. Productive cough present. No WBC elevation, no fever. Qualifiers: Bronchitis organism: unspecified organism Qualified Code(s): J20.9 - Acute bronchitis, unspecified (3) Acute chest pain Current Visit: Yes Status: Acute Assessment and plan: Negative troponin. Mild chest discomfort. C pending this AM. (4) COPD (chronic obstructive pulmonary disease) Current Visit: No Status: Chronic Assessment and plan: Continues to be stable. Continue Duoneb prn. Qualifiers: COPD type: chronic bronchitis Chronic bronchitis type: simple Qualified Code(s): J41.0 - Simple chronic bronchitis (5) DVT prophylaxis Current Visit: No Status: Acute Assessment and plan: On Lovenox (6) PTSD (post-traumatic stress disorder) Current Visit: No Status: Chronic Assessment and plan: Continuing home meds. (7) Tobacco use Current Visit: No Status: Chronic Assessment and plan: Counseled 08/19 for smoking cessation. On nicotine patch. - Subjective Interval history: Mr. Miguel is a 61 year old male with past medical history significant for arthritis and GERD who presented to the hospital due to worsening shortness of breath for one week. Today 08/20, pt reports improvement of symptoms after respiratory therapy. Also reports decreased lower extremity swelling bilaterally. Mild cough, mild chest discomfort. Awaits left heart cath this morning. - Constitutional Vitals: Temp Pulse Resp BP Pulse Ox 97.6 F 82 16 130/77 91 08/20/17 03:20 08/20/17 03:20 08/20/17 08:17 08/20/17 03:20 08/20/17 08:17 General appearance: Present: cooperative, A&O X 3, no acute distress, answers questions appropriately - Head Head exam: Present: atraumatic, normal inspection - Respiratory Respiratory exam: Present: decreased breath sounds, prolonged expiratory phase. Absent: respiratory distress, rhonchi - Cardiovascular Cardiovascular exam: Present: RRR, +S1, +S2. Absent: systolic murmur - GI/Abdominal GI/Abdominal exam: Present: normal bowel sounds, no peritoneal signs. Absent: rebound - Extremities Exam Extremities exam: Present: pedal edema (+1), radial pulses palpable and symmetrical Internal Medicine: Result - Labs CBC & Chem 7: 08/20/17 04:12 08/20/17 04:12 Labs: Short CBC 08/20/17 Range/Units 04:12 WBC 7.7 (4.3-11.1) K/mcL Hgb 11.2 L (12.9-16.9) g/dL Hct 35.2 L (37.5-50.1) % Plt Count 189 (140-400) K/mcL Neutrophils # 4.9 (1.6-8.9) K/mcL BMP 08/20/17 04:12 Sodium 142 Potassium 3.9 Chloride 103 Carbon Dioxide 31 H BUN 28 H D Creatinine 1.23 Glucose 98 Calcium 9.6 Consult Discharge Plan - Plan Referrals: CT,PCP [Primary Care Provider] - <Mervin Yao - Last Filed: 08/20/17 17:32> Date of Encounter: 08/20/17 - Assessment and plan (1) Acute diastolic CHF (congestive heart failure) Current Visit: Yes Status: Acute (2) Acute bronchitis Current Visit: Yes Status: Acute Qualifiers: Bronchitis organism: unspecified organism Qualified Code(s): J20.9 - Acute bronchitis, unspecified (3) Acute chest pain Current Visit: Yes Status: Acute (4) COPD (chronic obstructive pulmonary disease) Current Visit: No Status: Chronic Qualifiers: COPD type: chronic bronchitis Chronic bronchitis type: simple Qualified Code(s): J41.0 - Simple chronic bronchitis (5) DVT prophylaxis Current Visit: No Status: Acute (6) PTSD (post-traumatic stress disorder) Current Visit: No Status: Chronic (7) Tobacco use Current Visit: No Status: Chronic - Constitutional Vitals: Temp Pulse Resp BP Pulse Ox 97.7 F 65 16 119/74 96 08/20/17 12:33 08/20/17 12:33 08/20/17 17:22 08/20/17 12:33 08/20/17 17:22 Internal Medicine: Result - Labs CBC & Chem 7: 08/20/17 04:12 08/20/17 04:12 Labs: Short CBC 08/20/17 Range/Units 04:12 WBC 7.7 (4.3-11.1) K/mcL Hgb 11.2 L (12.9-16.9) g/dL Hct 35.2 L (37.5-50.1) % Plt Count 189 (140-400) K/mcL Neutrophils # 4.9 (1.6-8.9) K/mcL BMP 08/20/17 04:12 Sodium 142 Potassium 3.9 Chloride 103 Carbon Dioxide 31 H BUN 28 H D Creatinine 1.23 Glucose 98 Calcium 9.6 - Attending Attestation I examined this patient and my medical decision-making was reviewed with the Resident Physician. I agree with the documented findings, disposition and treatment plan as described except to the extent set forth below. Mr. Miguel is a 61 year old male with past medical history significant for arthritis and GERD who presented to the hospital due to worsening shortness of breath for one week. Today it was severe, was occurring at rest, worse with normal exertion. Reports associated 6/10 lower sternal sharp and stabbing chest pain in 8/10 back pain. He denied any active CP now. His SOB also better today. Still has cough with brownish expectoration. Gen: A,A< O x3 Chest: Diminished BS b/l, no crackles, no rales Heart: S1S2+ Abd : Soft, NT BS + a/p 1. Acute combine systolic and diastolic CHF exacerbation 2. Severe hypokinesia of Inferior wall scheduled for cardiac cath today Held Lasix since his Cr worsening slowly Also started him on Mucormyst PO for renal protection May start him on gentle hydration after cath 3. Acute bronchitis on Doxy
[2017-08-20] MEDS ORDERED: Nitroglycerin 1,000 MCG/10 ML VIAL IV ONE (14:17)
[2017-08-20] MEDS ORDERED: Verapamil 5 MG/2 ML VIAL ONE (14:17)
[2017-08-20] MEDS ORDERED: 0.9 % Sodium Chloride 1,000 ML ONE ×2 (14:17→14:18)
[2017-08-20] MEDS ORDERED: Heparin 1,000 UNITS/500 mL NS 500 ML ONE (14:17)
[2017-08-20] MEDS ORDERED: *HR* Heparin 10,000 UNIT/10 ML VIAL ONE (14:17)
--- NOTE | 2017-08-20 14:25 | Pre-Sedation Evaluation ---
Pre-sedation evaluation - Pre-sedation checklist Date of procedure: 08/20/17 Procedure: [facility] Recent Vitals: Last Vital Signs Temp 97.7 F 08/20/17 12:33 Pulse 65 08/20/17 12:33 Resp 17 08/20/17 12:33 BP 119/74 08/20/17 12:33 Pulse Ox 92 08/20/17 12:33 H&P (including ROS) documented in medical record: Yes Previous reaction to sedatives/anesthetics: Unknown Dietary Status: NPO after Midnight Dentition: poor dentition ASA Classification *see protocol: CLASS II-Mild systemic disease Plan of Care: Pt appropriate candidate for procedure/moderate/conscious sedation , Risks/benefits of procedure/sedation discussed w/ patient/family
[2017-08-20] MEDS ORDERED: *HR* Midazolam HCl 2 MG/2 ML VIAL ONE (14:47)
[2017-08-20] MEDS ORDERED: *HR* FentaNYL (PF) 100 MCG/2 ML VIAL ONE (14:47)
[2017-08-20] MEDS ORDERED: Tirofiban 12.5 MG/250ML 12.5 MG/250 ML BAG ONE (15:41)
[2017-08-20] MEDS ORDERED: Tirofiban 12.5 MG/250ML 12.5 MG/250 ML BAG IVC SCH (16:30)
[2017-08-20] MEDS: Ipratropium/Albuterol Neb 3 ML IH PRN ×2 (17:22→19:39)
--- NOTE | 2017-08-20 18:09 | Invasive Diagnostic Lab Proc ---
Name: Luis Miguel Date of Study: 08/20/2017 Date: 1955 Ht: 70.9in Medical Record#: [id number] Age: 61 Wt: 202.83lb Gender: Male BSA: 2.12 Order #: [id number] BMI: 28.4 Physicians Procedure Physician: Toby Luna MD, [facility] Referring MD: Referring MD: Staff Name Position Time In Sarahy Wilkins RN Monitor 02:43 PM Lyle Kramer RT (R) Monitor 02:43 PM Elizabeth Zaman RN Service Liaison Representative 02:43 PM Adriana Salinas RT (R) Scrub 02:43 PM Indications Indication Abnormal Test - ECHO Procedures Performed Procedure L HRT ARTERY/VENTRICLE ANGIO PRQ CARD REVASC CHRONIC 1VSL PRQ CARD REVASC CHRONIC ADDL Pre-Procedure Checklist Informed consent is complete signed and on chart. H&P is on chart. ID band is on and ID verified with patient. Patient NPO for procedure The procedure was described for the patient and questions were answered. Blood Pressure: 130/77 ECG is on chart. Rhythm: NSR Plan of Care Patient will tolerate the procedure without complications. Adequate level of comfort will be maintained. Hemodynamics will remain stable Patient will recover from procedure without complications. Respiratory function will be maintained. Cardiac rhythm will remain stable. Patient temperature will be maintained. Patient and/or family have verbalized understanding of the procedure. Patient Education Chief Complaint/Reason for Test: Cardiac Cath Developmental Category: Geriatric (65+ years) Developmentally Appropriate for Age: Yes Learning Barriers: None Education Needs: Procedure Education Method: Verbal Information Taught: Cardiac Cath Educational Evaluation: Able to repeat information Intravenous Access Time IV Size Location DC'd Fluid/Drip Rate Units RN 20g 1 11/01" Patent On Arrival 0.9NaCl 20 ml/hr Sarahy Wilkins RN Allergies No Known Allergies Vital Signs Time BP (mmHg) HR (bpm) O2 Sat. RR (bpm) LOC 130 / 77 82 91 % 16 5 = Fully awake and oriented or at pre-proc level 02:56 PM / % 5 = Fully awake and oriented or at pre-proc level 02:56 PM / % 4 = Oriented but drowsy 03:11 PM / % 4 = Oriented but drowsy 03:26 PM / % 4 = Oriented but drowsy 03:41 PM / % 4 = Oriented but drowsy 04:11 PM / % 4 = Oriented but drowsy 02:49 PM 136 / 82 69 100 % 12 02:54 PM 124 / 77 65 99 % 18 02:59 PM 120 / 77 57 96 % 18 03:03 PM 125 / 83 59 97 % 21 03:09 PM 122 / 72 62 98 % 17 03:14 PM 127 / 72 64 98 % 18 5 = Fully awake and oriented or at pre-proc level 03:19 PM 127 / 80 63 97 % 18 03:24 PM 122 / 77 63 99 % 18 5 = Fully awake and oriented or at pre-proc level 03:29 PM 126 / 80 70 99 % 18 03:34 PM 126 / 71 69 100 % 18 5 = Fully awake and oriented or at pre-proc level 03:39 PM 125 / 78 71 100 % 19 03:44 PM 115 / 72 69 99 % 19 03:49 PM 122 / 79 80 97 % 18 03:54 PM 114 / 72 69 95 % 18 03:59 PM 127 / 77 78 99 % 18 04:04 PM 127 / 79 71 98 % 18 04:09 PM 118 / 85 71 100 % 18 04:14 PM 122 / 81 70 99 % 18 04:19 PM 121 / 69 64 100 % 18 5 = Fully awake and oriented or at pre-proc level 04:24 PM 117 / 75 61 99 % 18 04:29 PM 121 / 77 66 99 % 18 5 = Fully awake and oriented or at pre-proc level 04:43 PM 104 / 76 64 98 % 20 05:00 PM 107 / 69 56 96 % 18 5 = Fully awake and oriented or at pre-proc level 05:15 PM 112 / 92 65 95 % 16 5 = Fully awake and oriented or at pre-proc level 05:30 PM 123 / 80 62 97 % 16 5 = Fully awake and oriented or at pre-proc level 05:59 PM 119 / 85 63 100 % 16 5 = Fully awake and oriented or at pre-proc level Procedural Medications Time Medication Dose Units Method Given By 02:44 PM Oxygen 2 L/min nasal cannula Elizabeth Zaman RN 02:50 PM Versed 2 mg Intravenous Elizabeth Zaman RN 02:50 PM Fentanyl 50 mcg Intravenous Elizabeth Zaman RN 03:00 PM Lidocaine 2% 0.5 ml Subcutaneous Toby Luna MD, FACC 03:05 PM Lidocaine 2% 20 ml Subcutaneous Toby Luna MD, FACC 03:18 PM Heparin 4000 units Intravenous Elizabeth Zaman RN 03:43 PM Aggrastat Bolus: 46 ml Intravenous Elizabeth Zaman RN 03:43 PM Aggrastat 12.5mg/250ml 16.5 ml/hr Intravenous Elizabeth Zaman RN 03:43 PM Nitroglycerin 200 mcg Intracoronary Toby Luna MD 03:55 PM Nitroglycerin 200 mcg Intracoronary Toby Luna MD 04:18 PM Nitroglycerin 150 mcg Intracoronary Toby Luna MD 04:22 PM Plavix 600 mg Orally Elizabeth Zaman RN ASA Classification: CLASS II- Mild systemic disease (i.e. well-controlled diabetes, hypertension, asthma, cigarette smoking) Shara Score Preprocedure Postprocedure Activity 2- Moves 4 extremities sustained head lift Activity 2- Moves 4 extremities sustained head lift Circulation 2- SBP +/= 20 points of pre-anesthetic level Circulation 2- SBP +/= 20 points of pre-anesthetic level Consciousness 2- Awake and alert oriented x 3 Consciousness 2- Awake and alert oriented x 3 O2 Saturation 2- Able to maintain O2 satruation of 92% on room air O2 Saturation 2- Able to maintain O2 satruation of 92% on room air Respiratory 2- Able to deep breathe and cough well Respiratory 2- Able to deep breathe and cough well Total Score 10 Total Score 10 Contrast Agent: Isovue Diagnostic Contrast: 154 ml Total Contrast: 154 ml Fluoro Dose: 1777 mGy Activated Clotting Time Time Seconds to Clot 03:53 PM 296 04:25 PM 199 05:40 PM 130 Procedure Log Time Note Enter By 02:41 PM CathStat 02:43 PM Pt arrived to chemical laboratory chief 2 at 14:43 [email or web address] 02:43 PM Sarahy Wilkins RN Position: Monitor Time in: 14:43 [email or web address] 02:43 PM Lyle Kramer RT (R) Position: Monitor Time in: 14:43 [email or web address] 02:43 PM Elizabeth Zaman RN Position: Service Liaison Representative Time in: 14:43 [email or web address] 02:43 PM Adriana Salinas RT (R) Position: Scrub Time in: 14:43 [email or web address] 02:43 PM Patient charges- Angio tray pack, Navilyst 3mm J, Pulse Oximetry and ACIST tubing and transducer tsoumm 02:43 PM Case Delayed No tsoummers 02:44 PM Hair removed from procedure site in procedure lab using clippers. Right wrist & Rt groin prepped with Chloraprep by Elizabeth Zaman RN, safety strap applied then patient was draped. Skin intact. mm 02:44 PM Physican paged/called :44. oumm 02:44 PM Physican responded and notified patient is ready 14:44 oumm 02:44 PM Physician arrived :44 mm:44 PM Meet and greet completed 02:44 PM Sign in performed according to hospital policy. mm 02:44 PM Procedure start 14:44 [email or web address] 02:44 PM Case Start :44 PM Time: :44 Oxygen on at 2 L/min per nasal cannula by Elizabeth Zaman RN chey 02:46 PM ASA Class CLASS II- Mild systemic disease (i.e. well-controlled diabetes, hypertension, asthma, cigarette smoking) oumm 02:48 PM Vitals capture started with the following parameters, Patient=Adult, Interval=5 min, Initial Vvrmbrsr=699 mmHg, Deflation Rate=5 mmHg, Cuff placed on Right Arm 02:49 PM HR=69 bpm, POIG=029/82 mmhg, OaN3=974.0 %, Resp=12 B/min, Comment=SR 02:50 PM Time: 14:50 Versed 2 mg Intravenous Given by Elizabeth Zaman RN [email or web address] 02:50 PM Time: 14:50 Fentanyl 50 mcg Intravenous Given by Elizabeth Zaman RN darrell 02:52 PM Recorded ECG: HR=67 Condition=Condition 1 02:54 PM HR=65 bpm, SXUR=826/77 mmhg, SpO2=99.0 %, Resp=18 B/min, Comment=SR 02:56 PM Time: 14:56 Patient comfortable and pain free: Yes [email or web address] 02:56 PM Time: 14:56LOC: 5 = Fully awake and oriented or at pre-proc level mm 02:58 PM Clinical Presentation: No symptoms, no angina mm 02:59 PM HR=57 bpm, FUEP=651/77 mmhg, SpO2=96.0 %, Resp=18 B/min, Comment=SR 03:00 PM Time out performed according to hospital policy [email or web address] 03:00 PM Time: 15:00 0.5 ml Lidocaine 2% to right radial Subcutaneous Given by Toby Luna MD, [facility] [email or web address] 03:00 PM Pressure channel 1 zeroed. 03:03 PM Unsuccessful access attempt # 1 into the right Radial artery. Manual pressure applied to achieve hemostasis.. tsoummers 03:03 PM HR=59 bpm, MTHT=686/83 mmhg, SpO2=97.0 %, Resp=21 B/min, Comment=SR 03:05 PM Time: 15:05 20 ml Lidocaine 2% to right groin Subcutaneous Given by Toby Luna MD, [facility] [email or web address] 03:05 PM Access obtained by percutaneous puncture. 5Fr 10cm [place] sheath placed in right Femoral artery. [id number] tsoummers 03:06 PM 0.035 145cm Navilyst 3mmJ wire [id number] tsoummers 03:07 PM 5Fr FL 4 catheter inserted over the wire [facility] tsoummchey 03:08 PM LCA angiography performed in multiple views. tsoummers 03:08 PM Recorded Pressure: Ao, HR=65, Condition=Condition 1 (Aorta) Ao 108/66/84 03:09 PM HR=62 bpm, CSRT=500/72 mmhg, SpO2=98.0 %, Resp=17 B/min 03:11 PM Time: 14:56 Patient comfortable and pain free: Yes tsoummers 03:11 PM Time: 14:56LOC: 4 = Oriented but drowsy tsoummers 03:12 PM Catheter removed [email or web address] 03:12 PM 5Fr FR 4 catheter inserted over the wire [facility] tsoummchey 03:12 PM RCA angiography performed in multiple views. tsoummers 03:13 PM Recorded Pressure: Ao, HR=24, Condition=Condition 1 (Aorta) Ao 103/62/85 03:13 PM Catheter removed tsoummers 03:14 PM HR=23 bpm, IGRU=759/72 mmhg, SpO2=98.0 %, Resp=18 B/min, Comment=SR with frequent PVCs 03:14 PM 5Fr Pigtail catheter inserted over the wire [facility] tsmmchey 03:14 PM Catheter selectively placed in left ventricle tsoummers 03:15 PM Recorded Pressure: LV, HR=25, Condition=Condition 1 (Left Ventricle) LV 118/3/20 03:15 PM Bolus angiogram of left Ventricle complete: 10 ml/sec for a total of 30 mls 03:16 PM Recorded Pressure: LV, HR=24, Condition=Condition 1 (Left Ventricle) LV 119/45/64 03:18 PM Catheter removed 03:18 PM Inflation device was opened. mm 03:18 PM Time: 15:18 Heparin 4000 units Intravenous Given by Elizabeth Zaman RN 03:19 PM Sheath exchanged for a 6 Fr 11 cm Cordis Kelsi sheath [id number] oumm 03:19 PM HR=23 bpm, YRCN=440/80 mmhg, SpO2=97.0 %, Resp=18 B/min, Comment=SR with PVCs 03:21 PM 6Fr MPA [place] Bright-Tip guide catheter was used to cannulate the PCI vessel successfully. reused? No tsoummers 03:23 PM .014 [place] 190cm guide wire across target lesion- successful. reused? No tsoummers 03:24 PM HR=23 bpm, CFZV=471/77 mmhg, SpO2=99.0 %, Resp=18 B/min 03:24 PM 1.5 mm x 15 mm Emerge Monorail balloon across target lesion- successful. reused? No mm 03:24 PM Recorded Pressure: Ao, HR=24, Condition=Condition 1 (Aorta) Ao 108/53/81 03:26 PM Time: 15:11LOC: 4 = Oriented but drowsy oumm 03:26 PM Time: 15:11 Patient comfortable and pain free: Yes tsoumm 03:27 PM Balloon catheter removed intact. tsoumm 03:27 PM Guide wire removed intact. tsoumm 03:28 PM .014 [place] 300cm guide wire across target lesion- successful. reused? No tsoummers 03:29 PM HR=70 bpm, ZKHD=266/80 mmhg, SpO2=99.0 %, Resp=18 B/min, Comment=SR with PVCs 03:29 PM 1.2 mm x 12 mm [employer] Monorail balloon across target lesion- successful. reused? No tsoummers 03:33 PM Guide wire removed intact. tsoummers 03:34 PM HR=69 bpm, OULE=717/71 mmhg, HfM3=980.0 %, Resp=18 B/min, Comment=SR with PVCs 03:36 PM .014 [place] 300cm guide wire across target lesion- successful. reused? Yes tsoummers 03:36 PM Balloon inflated @ 14 rosamaria for 12 seconds tsoummers 03:36 PM Balloon inflated @ 14 rosamaria for 15 seconds tsoummers 03:37 PM Balloon inflated @ 14 rosamaria for 15 seconds tsoummers 03:39 PM HR=71 bpm, QPLY=222/78 mmhg, QsO4=502.0 %, Resp=19 B/min, Comment=SR with PVCs 03:39 PM Balloon catheter removed intact. tsoummers 03:40 PM 2.25 mm x 20 mm Emerge Monorail balloon across target lesion- successful. reused? No tsoummers 03:41 PM Time: 15:26 Patient comfortable and pain free: Yes tsoummers 03:41 PM Time: 15:26LOC: 4 = Oriented but drowsy tsoummers 03:42 PM Balloon inflated @ 12 rosamaria for 26 seconds tsoummers 03:42 PM Balloon inflated @ 12 rosamaria for 14 seconds tsoummers 03:43 PM Time: 15:43 Aggrastat Bolus: 46 ml Intravenous Given by Elizabeth Zaman RN Krueger pump tsoummers 03:43 PM Time: 15:43 Aggrastat 12.5mg/250ml 16.5 ml/hr Intravenous Given by Elizabeth Zaman RN Krueger pump tsoummers 03:43 PM Time: 15:43 Nitroglycerin 200 mcg Intracoronary Given by Toby Luna MD tsoumm 03:44 PM Balloon catheter removed intact. tsoummers 03:44 PM HR=69 bpm, WJLJ=950/72 mmhg, SpO2=99.0 %, Resp=19 B/min, Comment=SR with PVCs 03:49 PM HR=80 bpm, XRNM=656/79 mmhg, SpO2=97.0 %, Resp=18 B/min, Comment=SR with PVCs 03:50 PM 3.0mm x 28mm Synergy drug-eluting stent across target lesion- successful Lot #[id number] tsoummers 03:52 PM Stent deployed @ 14 rosamaria for 17 seconds tsoummers 03:52 PM Stent balloon reinflated @ 16 rosamaria for 15 seconds tsoummers 03:54 PM At 15:53 the ACT was 296 seconds. tsoummers 03:54 PM HR=69 bpm, MTDP=627/72 mmhg, SpO2=95.0 %, Resp=18 B/min, Comment=SR with PVCs 03:54 PM Stent delivery system removed intact. tsoummers 03:54 PM 3.5 mm x 20mm NC Trek Rx balloon across target lesion- successful. reused? No tsoummers 03:55 PM Time: 15:55 Nitroglycerin 200 mcg Intracoronary Given by Toby Luna MD tsoummers 03:56 PM Balloon inflated @ 16 rosamaria for 12 seconds tsoummers 03:56 PM Balloon inflated @ 16 rosamaria for 10 seconds tsoummers 03:56 PM Balloon inflated @ 18 rosamaria for 12 seconds tsoummers 03:57 PM Balloon catheter removed intact. tsoummers 03:58 PM 4.5 mm x 8mm NC Trek Rx balloon across target lesion- successful. reused? No tsoummers 03:59 PM HR=78 bpm, DYFI=018/77 mmhg, SpO2=99.0 %, Resp=18 B/min, Comment=SR with PVCs 04:01 PM Balloon catheter removed intact. tsoummers 04:02 PM Guide wire removed intact. tsoummers 04:02 PM .014 [place] 190cm guide wire across target lesion- successful. reused? No tsoummers 04:04 PM 4.5 mm x 8mm NC Trek Rx balloon across target lesion- successful. reused? Yes. tsoummers 04:04 PM HR=71 bpm, ENLQ=241/79 mmhg, SpO2=98.0 %, Resp=18 B/min, Comment=SR with PVCs 04:05 PM Lesion found in Proximal Circumflex. Pre Stenosis: 15 Pre RAMESH Flow: tsoummers 04:05 PM Lesion found in Mid LAD. Pre Stenosis: 100 Pre RAMESH Flow: 0: No Flow/No perfusion tsoummers 04:06 PM Lesion found in Proximal RCA. Pre Stenosis: 100 Pre RAMESH Flow: 0: No Flow/No perfusion tsoummers 04:07 PM Right Coronary, Right Posterior Descending Arteries with Right Posterolateral and Acute Marginal branches with 100 % stenosis. tsoummers 04:07 PM Mid/Distal Left Anterior Descending Coronary Artery and diagonal branches with 100% stenosis. tsoummers 04:08 PM Balloon inflated @ 12 rosamaria for 12 seconds tsoummers 04:08 PM Balloon inflated @ 12 rosamaria for 12 seconds tsoummers 04:09 PM HR=71 bpm, ULZP=022/85 mmhg, NzP7=111.0 %, Resp=18 B/min, Comment=SR with PVCs 04:11 PM Balloon catheter removed intact. tsoummers 04:11 PM 2.75mm x 16mm Synergy drug-eluting stent across target lesion- successful Lot #[id number] tsoummers 04:11 PM Time: 15:56 Patient comfortable and pain free: Yes tsoummers 04:11 PM Time: 15:41LOC: 4 = Oriented but drowsy tsoumm 04:13 PM Stent deployed @ 12 rosamaria for 20 seconds tsoumm 04:14 PM HR=70 bpm, YDBV=616/81 mmhg, SpO2=99.0 %, Resp=18 B/min, Comment=SR with PVCs 04:14 PM Stent delivery system removed intact. tsoumm 04:14 PM 3.5 mm x 8mm NC Trek Rx balloon across target lesion- successful. reused? No tsoumm 04:16 PM Balloon inflated @ 12 rosamaria for 11 seconds tsoumm 04:17 PM Balloon catheter removed intact. tsmm 04:17 PM Guide wire removed intact. mm 04:19 PM Time: 16:18 Nitroglycerin 150 mcg Intracoronary Given by Toby Luna MD [facility] 04:19 PM HR=44 bpm, UTBK=998/69 mmhg, FoL3=583.0 %, Resp=18 B/min 04:21 PM Procedure completed at 16:21 [facility] 04:22 PM Sign out completed: Radiation Dose 1776.55 mGy Fluoro Time: 23.4 Isovue 370 - 200ml contrast 154 ml given by [facility]y Luna MD, [facility]. Complications: NoneCardiac Rehab Consult needed: YesConfirmed administered medications: Yes [facility] 04:22 PM Isovue 370 - 200ml,1 Bottle(s) used. 04:23 PM Time: 16:22 Plavix 600 mg Orally Given by Elizabeth Zaman RN [facility] 04:23 PM Post ECG SR with PVCs 04:23 PM Post Blood Pressure 121/69 04:23 PM 16:23 Post Pulses Bilateral DP 1+ :23 PM Information taught Cardiac Cath and PCI 04:24 PM Education needs Procedure, Plan of Care, and Responsibilities of Patient in Care 04:24 PM Learning barriers :None :24 PM Education Methods Verbal :24 PM Education evaluation Able to repeat information :24 PM HR=21 bpm, MUXU=100/75 mmhg, SpO2=99.0 %, Resp=18 B/min, Comment=SR with PVCs 04:24 PM Site status No bleeding/hematoma - Rt Groin as reported by Adriana Salinas RT (R) at 16:[address] [facility] 04:24 PM Plavix, Effient or Brilinta given Yes 04:24 PM Complications: None :24 PM Fluoro Time: 23.4 : PM Isovue 370 - 200ml contrast 154 ml given by Toby Luna MD, [facility]. 04:24 PM Radiation Dose 1776.55 mGy [facility] 04:25 PM At 16:25 the ACT was 199 seconds. 04:26 PM Lesion found in Distal RCA. Pre Stenosis: 90 Pre RAMESH Flow: 3: Complete and Brisk Flow/Perfusion 04:28 PM Lesion found in 1st RPL. Pre Stenosis: 90 Pre RAMESH Flow: 3: Complete and Brisk Flow/Perfusion [facility]:28 PM Time: 16:11LOC: 4 = Oriented but drowsy 04:28 PM Time: 16:11 Patient comfortable and pain free: Yes 04:28 PM Circumflex, Obtuse Marginal, Left Posterior Descending, and Left Posterolateral Coronary Arteries with 15 % stenosis. 04:29 PM HR=24 bpm, CDFU=245/77 mmhg, SpO2=99.0 %, Resp=34 B/min 04:35 PM Coronary Dominance: right 04:38 PM Delay to floor Bed availability [facility] 04:41 PM Report given to Nu MCGOVERN Pt taken to Holding room Room #. 16:41 [email or web address] 04:41 PM Patient out of room: 16:41 [email or web address] 05:12 PM percocet 5/325 po given for back pain 06/07. Patient has audible rhonci and moist cough. called RTS for breathing treatment [email or web address] 05:25 PM RTS administered breathing treatment [email or web address] 05:58 PM Arterial sheath pulled using manual compression and V+ Pad for 15 minutes by Mable Frank RT (R) [email or web address] 05:58 PM Site status No bleeding/hematoma - Rt Groin as reported by Mable Frank RT (R) at 17:58 [email or web address] 05:58 PM Opsite applied [email or web address] 05:58 PM Report given to Vicki echeverria RN Pt taken to Holding room Room #66. 17:58 [email or web address] 06:03 PM Patient out of room: 18:03 [email or web address] Complications Complication None Hemodynamics Pressures Site Systolic/A Wave Diastolic/V Wave Mean AO 108 66 84 AO 103 62 85 LV 118 3 20 LV 119 45 64 AO 108 53 81 Post Procedure Information Blood Pressure: 121/69 mmHg Rhythm: SR with PVCs Post procedural instructions were given Site Checks Time Location Status Staff Sheath In? Note 04:24 PM Rt Groin No bleeding/hematoma Adriana Salinas RT (R) Yes 04:42 PM Rt Groin No bleeding/ No Hematoma Elizabeth Zaman RN Yes 05:00 PM Rt Groin No bleeding/ No Hematoma Nu Zheng RN Yes 05:15 PM Rt Groin No bleeding/ No Hematoma Nu Zheng RN Yes 05:30 PM Rt Groin No bleeding/ No Hematoma Nu Zheng RN Yes 05:58 PM Rt Groin No bleeding/hematoma Mable Frank RT (R) 05:58 PM Rt Groin No bleeding/ No Hematoma Mable Frank RT (R) Pulses Time Site Pre-Procedure Post-Procedure Note Bilateral DP & PT 2+ Bilateral radial 2+ 4:23:00 PM Bilateral DP 1+ 08/20/2017 4:43:00 PM Bilateral DP & PT 1+ 08/20/2017 5:00:00 PM Bilateral DP & PT 1+ 08/20/2017 5:15:00 PM Bilateral DP & PT 1+ 08/20/2017 5:59:00 PM Bilateral DP & PT 1+ Updated by RT Marleny(R) on 08/20/2017 6:03:33 PM electronically signed on 08/20/2017 6:04:24 PM with status of Final
[2017-08-20] MEDS: Mirtazapine 15 MG TABLET PO SCH (20:25)
[2017-08-20] MEDS ORDERED: *HR* Acetylcysteine 20% 600 MG/3 ML ORAL SYRINGE PO SCH (21:00)
[2017-08-21] MEDS: Doxycycline 100 MG in 0.9 % Sodium Chloride Mini Bag 100 ML IVPB SCH (02:52)
[2017-08-21] MEDS: *HR* OxyCODONE/APAP 5/325 TABLET PO PRN ×3 (03:53→13:00)
[2017-08-21] MEDS: *HR* Enoxaparin 40 MG/0.4 ML SYRINGE SQ SCH (05:54)
[2017-08-21 06:55] LABS: Basophils # 0.1 K/mcL (0.0-0.2); Basophils % 1.2 %; Eosinophils # 0.1 K/mcL (0.0-0.6); Eosinophils % 1.7 %; Hematocrit 35.9 % (37.5-50.1); Hemoglobin 11.6 g/dL (12.9-16.9); Immature Granulocytes % 0.2 % (0-4); Lymphocytes # 1.5 K/mcL (0.6-4.6); Lymphocytes % 18.2 %; Mean Corpuscular HGB Conc 32.3 g/dL (31.6-35.5); Mean Corpuscular Hemoglobin 26.8 pg (28.0-33.3); Mean Corpuscular Volume 82.9 fL (83.0-100.0); Mean Platelet Volume 11.6 fL (9.4-12.4); Monocytes # 0.6 K/mcL (0.0-1.3); Monocytes % 7.6 %; Neutrophils # 5.7 K/mcL (1.6-8.9); Platelet Count 204 K/mcL (140-400); Red Blood Count 4.33 M/mcL (4.19-5.50); Red Cell Distribution Width 14.7 % (11.5-14.5); Segmented Neutrophils % 71.1 %
[2017-08-21 07:03] LABS: BUN/Creatinine Ratio 24 (6-26); Blood Urea Nitrogen 27 mg/dL (8-26); Calcium 9.3 mg/dL (8.6-10.8); Carbon Dioxide 27 mEq/L (19-29); Chloride 106 mEq/L (98-109); Glucose 100 mg/dL (70-99); Osmolality,Calculated 299 (280-300); Potassium 4.1 mEq/L (3.5-4.5); Sodium 142 mEq/L (136-145); eGFR For African Americans > 60 (> 60); eGFR For Non-African Americans > 60 (> 60)
[2017-08-21] MEDS: Ipratropium/Albuterol Neb 3 ML IH PRN (07:37)
[2017-08-21] MEDS: Budesonide/Formoterol 160/4.5 MDI IH SCH (07:37)
[2017-08-21] MEDS: Metoprolol XL (24 HR) Succ 25 MG TAB.ER.24H PO SCH (08:23)
[2017-08-21] MEDS: Carbidopa/Levodopa 25/100 TABLET PO SCH (08:24)
[2017-08-21] MEDS: Aspirin 81 MG TAB.CHEW PO SCH (08:24)
[2017-08-21] MEDS: Gabapentin 300 MG CAPSULE PO SCH (08:24)
[2017-08-21] MEDS: Folic Acid 1 MG TABLET PO SCH (08:24)
[2017-08-21] MEDS: risperiDONE 0.25 MG TABLET PO SCH (08:24)
--- NOTE | 2017-08-21 09:09 | Cardiology Progress Note ---
Date of Encounter: 08/21/17 Time of Encounter: 09:15 Assessment and Plan (1) Acute diastolic CHF (congestive heart failure) Current Visit: Yes Status: Acute Per Cardiology: Presented with Acute CHF. No previous history. SOB likely multifactoral in the setting of known COPD. BNP 1568. CXR shows changes concerning for mild CHF and possible pericardial effusion. Troponin negative x 3. Echo showed EF 45-50%, moderate diastiolic Dysfxn. Net I&O -1675ml, clinicallly he reports improvement. Continue strict I&O, daily weights, low sodium diet, 2L fluid restriction. On Lasix 20mg IV BID-- on hold, will DC. Start Lasix 20mg PO daily (was not on at home). On low dose BB-- monitor closely (SBP 80's - 90's). He reports baseline weight about 214lbs, now down about 5kg, weight abotu 203 [address] now. Discuss[address] with Dr. Jimenez, will s/o, has DC pending per primary. Re- consult PRN, f/u scheduled. 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 Has mid LAD 100% lesion with collaterals. Has nonobstructive Prox Circ 15%. On asa, stain, Plavix, BB. Has CR order. Qualifiers: Coronary Disease-Associated Artery/Lesion type: [place] artery [place] vs. transplanted heart: [place] heart Associated angina: without angina Qualified Code(s): I25.10 - Atherosclerotic heart disease of [place] coronary artery without angina pectoris (3) Acute bronchitis Current Visit: Yes Status: Acute Per Cardiology: Management per primary service, DC appears pending today. Qualifiers: Bronchitis organism: unspecified organism Qualified Code(s): J20.9 - Acute bronchitis, unspecified Discussion w patient/family: The assessment and plan as outlined above was discussed with the patient who expressed understanding and agreement. All questions were answered. Thank you for involving us in the care of your patient. Please call with any questions. Subjective Principal diagnosis: CHF Interval history: Patient denies any chest pain. Reports overall history is of breath and swelling have improved during hospital stay. Denies a concerns his right groin site from catheterization yesterday. Objective Vital Signs, Last 4 Hours Temp Pulse Resp BP Pulse Ox 08/21/17 06:43 98.3 F 70 14 87/53 94 General: Conversant, No Apparent Distress HEENT: Atraumatic, Normocephaly Cardiac: Reg Rate and Rhythm, Normal S1 and S2, No Murmur Lungs: Other (Scattered rhonchi throughout) Neuro: Alert and responsive, No focal deficits noted Abdomen: Soft, Non-Tender Skin: No rashes noted on visualized skin, Other (R groin site D&I, no hematoma, no ecchymosis, R DP and PT pulse 2+ palp) Extremities: Other (+1 pitting edema R > L) Results 08/21/17 06:01 08/21/17 06:01 Lab Results Laboratory Tests 08/18/17 08/18/17 08/18/17 14:08 14:08 18:26 Troponin I 0.03 0.03 B-Natriuretic Peptide 1568 H 08/19/17 00:30 Troponin I 0.02 B-Natriuretic Peptide ITS Impressions Chest X-Ray 08/18/17 13:57 IMPRESSION: 1. The combination of cardiopericardial silhouette enlargement, a small right pleural effusion, and mild interstitial pulmonary edema all suggests mild CHF. The enlarged cardiopericardial silhouette could also represent a pericardial effusion in the right clinical setting. 2. Mild right basilar atelectasis. D/ / 08/18/2017 16:02:47 Zack Love MD / galindo Interpreting Provider: Zack Love MD Echocardiogram 08/18/17 18:07 Impressions: Mild LV systolic dysfunction, LVEF 45-50%. There is severe hypokinesis to akinesis of the inferior wall. Moderate left ventricular diastolic dysfunction. Normal right ventricular size and function. No significant valvular dysfunction. Unable to estimate RVSP due to lack of TR jet. Left Ventricular Wall Motion: Rest Echo Findings The apical inferior and mid inferior mcnally were hypokinetic. The basal inferior wall was akinetic. All other wall segments showed normal motion. Findings: Study Quality * Suboptimal echo windows. ECG Findings * Sinus rhythm with occasional PVCs. Left Ventricle * Mild LV systolic dysfunction, LVEF 45-50%. There is severe hypokinesis to akinesis of the inferior wall. * Normal LV chamber size and wall thickness. * Moderate left ventricular diastolic dysfunction. Right Ventricle * Normal right ventricular size and function. Left Atrium * Normal left atrial size. Right Atrium * Normal right atrial size. Aorta * Normally sized aortic root. Pericardium * There is a trivial pericardial effusion present. IVC * The IVC is not well evaluated. Aortic Valve * Aortic valve not well visualized. Appears trileaflet. * No aortic stenosis. * No aortic regurgitation. Mitral Valve * Normal mitral valve structure. * No mitral stenosis. * Trace mitral regurgitation. Tricuspid Valve * Normal tricuspid valve structure. * No tricuspid stenosis. * Trace tricuspid regurgitation. * Unable to estimate RVSP due to lack of TR jet. Pulmonic Valve * Pulmonic valve not well visualized. * No pulmonic stenosis. * Trace pulmonic regurgitation. Intake & Output 08/18/17 08/19/17 08/20/17 08/21/17 23:59 23:59 23:59 23:59 Intake Total 100 / 100 1020 / 1020 200 / 200 Output Total 400 / 400 1200 / 1200 1245 / 1245 150 / 150 Balance -300 / -300 -180 / -180 -1045 / -1045 -150 / -150 Weight 97.069 kg 97.069 kg 92.034 kg 92.714 kg Active Medications Acetaminophen (Tylenol) 650 mg PO Q6HR PRN PRN Reason: Mild Pain (1-3) Stop: 02/17/18 18:09 Acetylcysteine (Acetylcysteine 20%) 600 mg PO BID [facility] Stop: 08/22/17 09:01 Last Admin: 08/20/17 22:21 Dose: 600 mg Albuterol/Ipratropium (Duoneb) 3 ml IH [id number] PRN PRN Reason: Shortness Of Breath/Wheezing Stop: 02/17/18 18:05 Last Admin: 08/21/17 07:37 Dose: 3 ml Aspirin (Aspirin) 81 mg PO DAILY [facility] Stop: 02/18/18 12:01 Last Admin: 08/21/17 08:24 Dose: 81 mg Atorvastatin Calcium (Lipitor) 40 mg PO HS [facility] Stop: 02/18/18 21:01 Last Admin: 08/20/17 20:25 Dose: 40 mg Budesonide/Formoterol Fumarate (Symbicort) 2 puff IH BIDR [facility] PRN Reason: Protocol Stop: 02/17/18 22:01 Last Admin: 08/21/17 07:37 Dose: 2 puff Carbidopa/Levodopa (Sinemet) 1 each PO TID [facility] Stop: 02/17/18 21:01 Last Admin: 08/21/17 08:24 Dose: 1 each Clopidogrel Bisulfate (Plavix) 75 mg PO DAILY [facility] Stop: 02/20/18 09:01 Last Admin: 08/21/17 08:24 Dose: 75 mg Docusate Sodium (Colace) 200 mg PO HS [facility] PRN Reason: Protocol Stop: 02/17/18 21:01 Last Admin: 08/20/17 20:25 Dose: 200 mg Enoxaparin Sodium (Lovenox) 40 mg SQ 0600 [facility] PRN Reason: Protocol Stop: 02/18/18 06:01 Last Admin: 08/21/17 05:54 Dose: 40 mg Folic Acid (Folic Acid) 1 mg PO DAILY [facility] Stop: 02/18/18 09:01 Last Admin: 08/21/17 08:24 Dose: 1 mg Furosemide (Lasix) 20 mg IVP BIDDIURETIC [facility] Stop: 02/17/18 18:16 Last Admin: 08/20/17 09:12 Dose: 20 mg Gabapentin (Neurontin) 600 mg PO TID [facility] Stop: 02/17/18 21:01 Last Admin: 08/21/17 08:24 Dose: 600 mg Doxycycline Hyclate 100 mg/ (Sodium Chloride) 100 mls @ 100 mls/hr IVPB Q12H [facility] Stop: 02/18/18 15:01 Last Admin: 08/21/17 02:52 Dose: 100 mls/hr Metoprolol Succinate (Toprol Xl) 12.5 mg PO DAILY [facility] Stop: 02/18/18 12:01 Last Admin: 08/21/17 08:23 Dose: Not Given Mirtazapine (Remeron) 30 mg PO HS [facility] Stop: 02/17/18 21:01 Last Admin: 08/20/17 20:25 Dose: 30 mg Naloxone HCl (Narcan) 0.4 mg IVP Q2MIN PRN PRN Reason: Opioid Reversal Stop: 02/17/18 18:09 Omeprazole (Prilosec) 20 mg PO DAILY@0730 [facility] Stop: 02/18/18 07:31 Last Admin: 08/21/17 05:54 Dose: 20 mg Ondansetron HCl (Zofran) 4 mg IVP Q8HR PRN PRN Reason: Nausea And Vomiting Stop: 02/17/18 18:09 Oxycodone/Acetaminophen (Percocet 5/325) 1 each PO Q4HR PRN PRN Reason: moderate to severe pain Stop: 02/17/18 18:05 Last Admin: 08/21/17 08:24 Dose: 1 each Risperidone (Risperdal) 0.5 mg PO BID [facility] Stop: 02/17/18 21:01 Last Admin: 08/21/17 08:24 Dose: 0.5 mg Sertraline HCl (Zoloft) 25 mg PO DAILY [facility] Stop: 02/18/18 09:01 Last Admin: 08/21/17 08:24 Dose: 25 mg - Imaging and Cardiology Echo: report reviewed Cardiac cath: report reviewed - EKG Interpretation EKG results cardiology: other (Tele reviewed and shows SR with avg 72, occasional PVCs, no events noted) Consult Discharge Plan - Plan [facility]errals: [facility] [Primary Care Provider] -
--- NOTE | 2017-08-21 10:48 | Discharge Summary ---
<Tc [place] - Last Filed: 08/21/17 15:24> Date of Encounter: 08/21/17 Time of Encounter: 15:02 - Discharge Diagnosis (1) CAD (coronary artery disease) Priority: Primary Status: Acute Qualifiers: Coronary Disease-Associated Artery/Lesion type: [place] artery [place] vs. transplanted heart: [place] heart Associated angina: without angina Qualified Code(s): I25.10 - Atherosclerotic heart disease of [place] coronary artery without angina pectoris (2) Acute diastolic CHF (congestive heart failure) Priority: Secondary Status: Acute (3) Acute bronchitis Priority: Secondary Status: Acute Qualifiers: Bronchitis organism: unspecified organism Qualified Code(s): J20.9 - Acute bronchitis, unspecified (4) Acute chest pain Priority: Secondary Status: Acute (5) COPD (chronic obstructive pulmonary disease) Priority: Secondary Status: Chronic Qualifiers: COPD type: chronic bronchitis Chronic bronchitis type: simple Qualified Code(s): J41.0 - Simple chronic bronchitis (6) DVT prophylaxis Priority: Secondary Status: Acute (7) PTSD (post-traumatic stress disorder) Priority: Secondary Status: Chronic (8) Tobacco use Priority: Secondary Status: Chronic - Discharge Medications Prescriptions: Aspirin 81 mg PO DAILY #30 tab.chew Atorvastatin [Lipitor] 40 mg PO HS #30 tablet Clopidogrel [Plavix] 75 mg PO DAILY #30 tablet Metoprolol XL (24 HR) Succ [Toprol Xl] 12.5 mg PO DAILY #30 tab.er.24h Home Medications: Alendronate Sodium [Fosamax] 10 mg PO DAILY 03/09/17 [History] Budesonide/Formoterol 160/4.5 [Symbicort 160/4.5] 2 puff IH BID 03/09/17 [ History] Carbidopa/Levodopa [Carbidopa-Levodopa 25-100 Tab] 1 tab PO TID 03/09/17 [ History] Docusate Sodium 200 mg PO HS 03/09/17 [History] Folic Acid 1 mg PO DAILY 03/09/17 [History] Gabapentin [Neurontin] 600 mg PO TID 03/09/17 [History] Mirtazapine [Remeron] 30 mg PO HS 03/09/17 [History] Omeprazole 20 mg PO DAILY 03/09/17 [History] Sertraline [Zoloft] 25 mg PO DAILY 03/09/17 [History] risperiDONE [Risperidone] 0.5 mg PO BID 03/09/17 [History] Ipratropium/Albuterol Neb [Duoneb] 3 ml IH [id number] PRN #0 inhsol 03/13/17 [Rx] OxyCODONE/APAP 5/325 [Percocet 5/325 MG] 1 tab PO Q4HR PRN #40 tablet 03/13/17 [ Rx] Aspirin 81 mg PO DAILY #30 tab.chew 08/21/17 [Rx] Atorvastatin [Lipitor] 40 mg PO HS #30 tablet 08/21/17 [Rx] Clopidogrel [Plavix] 75 mg PO DAILY #30 tablet 08/21/17 [Rx] Metoprolol XL (24 HR) Succ [Toprol Xl] 12.5 mg PO DAILY #30 tab.er.24h 08/21/17 [Rx] Allergies/Adverse Reactions: 3 Allergy/AdvReac Type Severity Reaction Status Date / Time No Known Allergies Allergy Verified 02/28/17 18:39 Procedures/tests Complete & Pending: Procedures Performed prior 72 hours Category Date Time Status CL Cardiac Catheterization [CL] Routine Relay Shop Supervisor 08/19/17 14:13 Completed ECG 12 lead ECG [ECG] Routine Y 08/20/17 16:29 Ordered Date of admission: 08/18/17 18:08 Primary care physician: PCP [place] Consults: 08/18/17 18:56 Consult to Senior Manufacturing Engineer [CONS] Routine Reason for SW Consult: [facility] 08/21/17 08:06 Consult to Cardiac Rehabilitation-Phase1 [CONS] Routine Comment: Reason for Consult: PCI to RCA Call Completed: No - Patient Status Disposition: Home, Self-Care Condition: Fair Functional capacity at discharge: independent ambulation Overall status at discharge: patient is progressing back to baseline - Discharge Instructions Instructions: Metoprolol (By mouth), Aspirin (By mouth), Atorvastatin (By mouth ), Clopidogrel (By mouth), Heart Failure (DC) Follow Up With: Cardiology Sandra [Provider Group] (The office will call you with your appointment date and time.) [facility] [Primary Care Provider] - Additional Instructions: Follow-up cardiology in 1 week, PCP 2 weeks. If you develop chest pain, shortness of breath, or bleeding, please return to the ED. - Diet and Activity Activity: as per the cardiac rehab Diet: low salt diet Hospital course: Mr. Miguel is a 61 year old male who presented to the hospital due to worsening shortness of breath for one week. A chest x-ray done in the emergency department suggested enlarged heart and findings consistent with heart failure, no previous history, troponins negative x3. TTE showed severe hypokinesis of inferior wall with akinesis of apex. Cardiac catheterization was performed with stenting of proximal RCA and posterior left ventricular branch. Discharged with bb, dapt (plavix, aspirin), hi-intensity statin; home meds. Educated on modifiable risk factors. To follow-up with PCP and cardiology. - Time Spent with Patient Total time spent providing and/or coordinating discharge services: - Constitutional Vitals: Temp Pulse Resp BP Pulse Ox 98.3 F 70 16 87/53 94 08/21/17 06:43 08/21/17 06:43 08/21/17 07:37 08/21/17 06:43 08/21/17 07:37 General appearance: Present: cooperative, A&O X 3, no acute distress, answers questions appropriately - Head Head exam: Present: atraumatic, normal inspection, normocephalic - Respiratory Respiratory exam: Present: decreased breath sounds, wheezes. Absent: accessory muscle use - Cardiovascular Cardiovascular exam: Present: RRR, +S1, +S2 - GI/Abdominal GI/Abdominal exam: Present: soft, no peritoneal signs. Absent: tenderness - Extremities Exam Extremities exam: Present: normal capillary refill, warm. Absent: calf tenderness, tenderness <Thallapaneni,Rambabu - Last Filed: 08/21/17 17:19> Date of Encounter: 08/21/17 - Discharge Diagnosis (1) Acute diastolic CHF (congestive heart failure) Status: Acute (2) Acute bronchitis Status: Acute Qualifiers: Bronchitis organism: unspecified organism Qualified Code(s): J20.9 - Acute bronchitis, unspecified (3) Acute chest pain Status: Acute (4) COPD (chronic obstructive pulmonary disease) Status: Chronic Qualifiers: COPD type: chronic bronchitis Chronic bronchitis type: simple Qualified Code(s): J41.0 - Simple chronic bronchitis (5) DVT prophylaxis Status: Acute (6) PTSD (post-traumatic stress disorder) Status: Chronic (7) Tobacco use Status: Chronic Procedures/tests Complete & Pending: Procedures Performed prior 72 hours Category Date Time Status CL Cardiac Catheterization [CL] Routine Relay Shop Supervisor 08/19/17 14:13 Completed ECG 12 lead ECG [ECG] Routine Y 08/20/17 16:29 Ordered Date of admission: 08/18/17 18:08 Primary care physician: [facility]CP [facility] Consults: 08/18/17 18:56 Consult to Senior Manufacturing Engineer [CONS] Routine Reason for SW Consult: [facility] 08/21/17 08:06 Consult to Cardiac Rehabilitation-Phase1 [CONS] Routine Comment: Reason for Consult: PCI to RCA Call Completed: No Hospital course: Mr. Miguel is a 61 year old male - Time Spent with Patient Total time spent providing and/or coordinating discharge services: - Constitutional Vitals: Temp Pulse Resp BP Pulse Ox 98.0 F 69 17 90/53 94 08/21/17 15:58 08/21/17 15:58 08/21/17 15:58 08/21/17 15:58 08/21/17 15:58 - Attending Attestation I examined this patient and my medical decision-making was reviewed with the Resident Physician. I agree with the documented findings, disposition and treatment plan as described except to the extent set forth below. Mr. Miguel is a 61 year old male who presented to the hospital due to worsening shortness of breath for one week.TTE showed severe hypokinesis of inferior wall with akinesis of apex. Cardiac catheterization was performed with stenting of proximal RCA and posterior left ventricular branch. Now pt is CP free. Gen: A, A, O x3 Chest: Diminished BS b/l, No crackles, no rales Heart: S1 S2 + RRR No murmurs a/p 1. Acute CAD s/p PCI cont ASA, Plavix, Statin, B david and ACEI 2. Acute diastolic CHF exacerbation Due to OLIVIA Ok to start lasix 20mg daily 2 days from now
[2017-08-21] MEDS ORDERED: Furosemide 20 MG TABLET PO SCH (11:15)
[2017-08-21 15:59] VITALS: BP 90/53
== END 2017-08-21 17:23 | disposition home or self-care (01) | DRG 175 ==
LOC: EMEROO 13:29 → 3BNU 13:29 → SUATTDRO 18:08
PROVIDERS: ADMIT Internal Medicine; ATTEND Family Medicine

== ENCOUNTER 2019-08-16 11:43 | Observation (INO) ==
[2019-08-16] MEDS ORDERED: Pantoprazole 40 MG VIAL IVP ONE (11:47)
[2019-08-16] MEDS ORDERED: 0.9 % Sodium Chloride 1,000 ML IVC ONE (11:49)
[2019-08-16] MEDS ORDERED: Ondansetron 4 MG/2 ML VIAL IVP ONE (11:49)
[2019-08-16 12:24] LABS: Basophils # 0.1 K/mcL (0.0-0.2); Basophils % 0.3 %; Eosinophils % 0.1 %; Hematocrit 41.5 % (37.5-50.1); Hemoglobin 14.2 g/dL (12.9-16.9); Immature Granulocytes % 0.3 % (0-4); Lymphocytes # 1.8 K/mcL (0.6-4.6); Lymphocytes % 12.3 %; Mean Corpuscular HGB Conc 34.2 g/dL (31.6-35.5); Mean Corpuscular Volume 84.9 fL (83.0-100.0); Mean Platelet Volume 11.9 fL (9.4-12.4); Monocytes # 0.7 K/mcL (0.0-1.3); Platelet Count 235 K/mcL (140-400); Red Blood Count 4.89 M/mcL (4.19-5.50); Red Cell Distribution Width 13.5 % (11.5-14.5); White Blood Count 14.7 K/mcL (4.3-11.1)
[2019-08-16 12:35] LABS: INR 1.2; Prothrombin Time 13.6 Seconds (9.4-12.1)
[2019-08-16 12:42] LABS: Alanine Aminotransferase 4 Units/L (7-52); Albumin 4.5 g/dL (3.5-5.7); Albumin/Globulin Ratio 1.9 (1.1-2.2); Alkaline Phosphatase 89 Units/L (34-104); Aspartate Amino Transferase 10 Units/L (13-39); BUN/Creatinine Ratio 30 (6-26); Bilirubin,Total 0.6 mg/dL (0.3-1.0); Blood Urea Nitrogen 29 mg/dL (8-23); Carbon Dioxide 29 mEq/L (23-29); Chloride 104 mEq/L (98-107); Globulin 2.4 g/dL (2.4-3.5); Glucose 115 mg/dL (70-105); Lipase 16 Units/L (11-82); Osmolality,Calculated 299 (280-300); Potassium 3.7 mEq/L (3.5-5.1); Sodium 141 mEq/L (136-145); Total Protein 6.9 g/dL (6.4-8.9); eGFR For African Americans > 60 (> 60); eGFR For Non-African Americans > 60 (> 60)
[2019-08-16] MEDS ORDERED: Ondansetron 4 MG/2 ML VIAL IVP PRN (13:18)
[2019-08-16] MEDS ORDERED: *HR* FentaNYL (PF) 100 MCG/2 ML VIAL ONE (15:14)
[2019-08-16] MEDS ORDERED: *HR* Midazolam HCl 5 MG/5 ML VIAL IVP ONE ×2 (15:14→15:34)
[2019-08-16] MEDS ORDERED: Simethicone 40 MG/0.6 ML MLS IR ONE (15:34)
[2019-08-16] MEDS ORDERED: Tetracaine/Benzocaine/Butamben 1 SPRAY AEROSOL MM ONE (15:34)
[2019-08-16] MEDS ORDERED: *HR* FentaNYL (PF) 100 MCG/2 ML VIAL IVP ONE (15:34)
[2019-08-16] MEDS: Carbidopa/Levodopa 25/100 TABLET PO SCH ×2 (16:40→21:24)
[2019-08-16] MEDS: Gabapentin 300 MG CAPSULE PO SCH ×2 (16:40→21:23)
[2019-08-16] MEDS ORDERED: Pantoprazole 40 MG VIAL IVP SCH (21:00)
[2019-08-16] MEDS: Acetaminophen 325 MG TABLET PO PRN (21:23)
[2019-08-16] MEDS: risperiDONE 0.25 MG TABLET PO SCH (21:25)
[2019-08-17 02:23] LABS: Hematocrit 32.9 % (37.5-50.1); Mean Corpuscular HGB Conc 34.3 g/dL (31.6-35.5); Mean Corpuscular Hemoglobin 29.4 pg (28.0-33.3); Mean Corpuscular Volume 85.7 fL (83.0-100.0); Mean Platelet Volume 12.6 fL (9.4-12.4); Platelet Count 156 K/mcL (140-400); Red Blood Count 3.84 M/mcL (4.19-5.50); Red Cell Distribution Width 13.5 % (11.5-14.5); White Blood Count 17.2 K/mcL (4.3-11.1)
[2019-08-17 02:26] LABS: Hemoglobin 11.3 g/dL (12.9-16.9)
[2019-08-17 02:43] LABS: BUN/Creatinine Ratio 28 (6-26); Blood Urea Nitrogen 25 mg/dL (8-23); Calcium 8.8 mg/dL (8.6-10.3); Carbon Dioxide 23 mEq/L (23-29); Chloride 110 mEq/L (98-107); Glucose 103 mg/dL (70-105); Magnesium 1.5 mg/dL (1.6-2.6); Osmolality,Calculated 295 (280-300); Potassium 3.8 mEq/L (3.5-5.1); Sodium 140 mEq/L (136-145); eGFR For African Americans > 60 (> 60); eGFR For Non-African Americans > 60 (> 60)
[2019-08-17 08:10] LABS: Hematocrit 32.2 % (37.5-50.1); Hemoglobin 10.7 g/dL (12.9-16.9)
[2019-08-17] MEDS: risperiDONE 0.25 MG TABLET PO SCH ×2 (09:57→21:08)
[2019-08-17] MEDS: Gabapentin 300 MG CAPSULE PO SCH ×3 (09:57→21:08)
[2019-08-17] MEDS: Carbidopa/Levodopa 25/100 TABLET PO SCH ×3 (09:58→21:08)
[2019-08-17] MEDS: Metoprolol XL (24 HR) Succ 25 MG TAB.ER.24H PO SCH (09:58)
[2019-08-17] MEDS: Sucralfate 1 GM TABLET PO SCH ×3 (09:58→20:11)
[2019-08-17] MEDS: Acetaminophen 325 MG TABLET PO PRN ×2 (10:04→16:04)
[2019-08-17 14:55] LABS: Bilirubin,Urine Negative (Negative); Blood,Urine Negative (Negative); Clarity,Urine Clear (Clear); Color,Urine Yellow (Yellow); Glucose,Urine (UA) Normal (Normal); Ketones,Urine Negative (Negative); Leukocyte Esterase,Urine Trace (Negative); Nitrite,Urine Negative (Negative); Protein,Urine Negative (Neg-Trace); Specific Gravity,Urine > 1.030 (1.010-1.025); Urobilinogen,Urine Normal (Normal)
[2019-08-17 14:56] LABS: Bacteria,Urine None Seen per hpf (None-Few); Hyaline Casts,Urine None Seen per lpf (None-Few); Squamous Epithelial Cell,Urine Many per lpf (None-Few)
[2019-08-17 15:09] LABS: Hematocrit 31.3 % (37.5-50.1); Hemoglobin 10.6 g/dL (12.9-16.9)
[2019-08-17] MEDS: Ipratropium/Albuterol Neb 3 ML IH SCH ×2 (15:51→22:47)
[2019-08-17 20:19] LABS: Hematocrit 29.6 % (37.5-50.1); Hemoglobin 9.8 g/dL (12.9-16.9)
[2019-08-18] MEDS: Ipratropium/Albuterol Neb 3 ML IH SCH ×2 (04:18→10:32)
[2019-08-18 04:41] LABS: Basophils # 0.1 K/mcL (0.0-0.2); Basophils % 0.8 %; Eosinophils # 0.1 K/mcL (0.0-0.6); Eosinophils % 1.3 %; Hematocrit 29.5 % (37.5-50.1); Hemoglobin 10.2 g/dL (12.9-16.9); Immature Granulocytes % 0.4 % (0-4); Lymphocytes # 1.9 K/mcL (0.6-4.6); Lymphocytes % 25.8 %; Mean Corpuscular HGB Conc 34.6 g/dL (31.6-35.5); Mean Corpuscular Hemoglobin 29.3 pg (28.0-33.3); Mean Corpuscular Volume 84.8 fL (83.0-100.0); Mean Platelet Volume 12.3 fL (9.4-12.4); Monocytes # 0.4 K/mcL (0.0-1.3); Monocytes % 5.5 %; Neutrophils # 4.9 K/mcL (1.6-8.9); Platelet Count 143 K/mcL (140-400); Red Blood Count 3.48 M/mcL (4.19-5.50); Red Cell Distribution Width 13.5 % (11.5-14.5); Segmented Neutrophils % 66.2 %
[2019-08-18 04:42] LABS: White Blood Count 7.4 K/mcL (4.3-11.1)
[2019-08-18 05:00] LABS: Alanine Aminotransferase 4 Units/L (7-52); Albumin 3.4 g/dL (3.5-5.7); Albumin/Globulin Ratio 1.7 (1.1-2.2); Alkaline Phosphatase 56 Units/L (34-104); Aspartate Amino Transferase 10 Units/L (13-39); BUN/Creatinine Ratio 23 (6-26); Bilirubin,Total 0.4 mg/dL (0.3-1.0); Blood Urea Nitrogen 20 mg/dL (8-23); Calcium 8.8 mg/dL (8.6-10.3); Carbon Dioxide 25 mEq/L (23-29); Chloride 109 mEq/L (98-107); Glucose 102 mg/dL (70-105); Magnesium 1.9 mg/dL (1.6-2.6); Osmolality,Calculated 293 (280-300); Potassium 3.7 mEq/L (3.5-5.1); Sodium 140 mEq/L (136-145); Total Protein 5.4 g/dL (6.4-8.9); eGFR For African Americans > 60 (> 60); eGFR For Non-African Americans > 60 (> 60)
[2019-08-18] MEDS: Sucralfate 1 GM TABLET PO SCH ×2 (06:00→10:23)
[2019-08-18] MEDS ORDERED: Folic Acid 1 MG TABLET PO SCH (08:45)
[2019-08-18] MEDS: Metoprolol XL (24 HR) Succ 25 MG TAB.ER.24H PO SCH (10:09)
[2019-08-18] MEDS: risperiDONE 0.25 MG TABLET PO SCH (10:17)
[2019-08-18] MEDS: Carbidopa/Levodopa 25/100 TABLET PO SCH (10:17)
[2019-08-18] MEDS: Gabapentin 300 MG CAPSULE PO SCH (10:18)
[2019-08-18] MEDS: Acetaminophen 325 MG TABLET PO PRN (10:20)
[2019-08-18 11:08] VITALS: BP 92/57
== END 2019-08-18 15:27 | disposition home health service (06) ==
LOC: 3ANU 11:43 → EMEROOARM 11:43 → SUATTDRO 13:31 → 3ANU 14:51
PROVIDERS: ADMIT Internal Medicine; ATTEND Internal Medicine

== ENCOUNTER 2020-12-16 09:24 | Inpatient (IN) ==
[2020-12-16] MEDS ORDERED: Azithromycin 500 MG in 0.9 % Sodium Chloride 250 ML IVPB ONE (09:32)
[2020-12-16] MEDS ORDERED: Ipratropium/Albuterol Neb 3 ML IH ONE (09:32)
[2020-12-16] MEDS ORDERED: Ipratropium/Albuterol Neb 3 ML ONE (09:34)
[2020-12-16] MEDS ORDERED: Isovue-370 500 ML BOTTLE IVP ONE (09:38)
[2020-12-16 09:58] LABS: Basophils % 0.3 %; Eosinophils % 0.2 %; Hematocrit 41.1 % (37.5-50.1); Hemoglobin 13.3 g/dL (12.9-16.9); Immature Granulocytes % 0.3 % (0-4); Lymphocytes # 0.9 K/mcL (0.6-4.6); Lymphocytes % 6.9 %; Mean Corpuscular HGB Conc 32.4 g/dL (31.6-35.5); Mean Corpuscular Hemoglobin 28.5 pg (28.0-33.3); Mean Platelet Volume 11.2 fL (9.4-12.4); Monocytes # 0.7 K/mcL (0.0-1.3); Monocytes % 5.2 %; Neutrophils # 11.5 K/mcL (1.6-8.9); Platelet Count 193 K/mcL (140-400); Red Blood Count 4.67 M/mcL (4.19-5.50); Red Cell Distribution Width 13.3 % (11.5-14.5); Segmented Neutrophils % 87.1 %; White Blood Count 13.3 K/mcL (4.3-11.1)
[2020-12-16 10:05] LABS: INR 1.2; Prothrombin Time 13.6 Seconds (9.4-12.1)
[2020-12-16 10:07] LABS: Activated Partial Thrombo Time 29.3 Seconds (26.0-36.0)
[2020-12-16 10:21] LABS: Alanine Aminotransferase 3 Units/L (7-52); Albumin 4.1 g/dL (3.5-5.7); Albumin/Globulin Ratio 1.5 (1.1-2.2); Aspartate Amino Transferase 11 Units/L (13-39); BUN/Creatinine Ratio 14 (6-26); Bilirubin,Direct 0.1 mg/dL (0.0-0.2); Bilirubin,Indirect 0.3 mg/dL (0.0-1.0); Bilirubin,Total 0.4 mg/dL (0.3-1.0); Blood Urea Nitrogen 14 mg/dL (8-23); Calcium 9.8 mg/dL (8.6-10.3); Carbon Dioxide 26 mEq/L (23-29); Chloride 106 mEq/L (98-107); Globulin 2.8 g/dL (2.4-3.5); Glucose 111 mg/dL (70-105); Osmolality,Calculated 293 (280-300); Potassium 4.2 mEq/L (3.5-5.1); Sodium 141 mEq/L (136-145); Total Protein 6.9 g/dL (6.4-8.9); Troponin I < 0.03 ng/mL (< 0.04); eGFR For African Americans > 60 (> 60); eGFR For Non-African Americans > 60 (> 60)
[2020-12-16 11:09] LABS: Alkaline Phosphatase 94 Units/L (34-104)
[2020-12-16] MEDS ORDERED: *HR* OxyCODONE/APAP 5/325 TABLET PO ONE (11:36)
[2020-12-16] MEDS ORDERED: Acetaminophen 325 MG TABLET PO PRN (12:34)
[2020-12-16] MEDS ORDERED: Naloxone 0.4 MG/ML INJ IVP PRN (12:34)
[2020-12-16] MEDS ORDERED: Ondansetron 4 MG/2 ML VIAL IVP PRN (12:34)
[2020-12-16] MEDS: Carbidopa/Levodopa 25/100 TABLET PO SCH ×2 (15:29→21:07)
[2020-12-16] MEDS: *HR* HYDROcodone/Acet 5/325 mg TABLET PO PRN ×2 (15:29→21:54)
[2020-12-16] MEDS ORDERED: *HR* Heparin 5,000 UNIT/ML VIAL ONE (15:32)
[2020-12-16] MEDS: Nicotine 14 MG PATCH.TD24 TD SCH (15:34)
[2020-12-16] MEDS: *HR* Heparin 5,000 UNIT/ML VIAL SQ SCH ×2 (15:35→15:37)
[2020-12-16] MEDS: risperiDONE 0.25 MG TABLET PO SCH (21:07)
[2020-12-17 03:39] LABS: Basophils % 0.3 %; Eosinophils % 0.1 %; Immature Granulocytes % 0.3 % (0-4); Lymphocytes # 1.7 K/mcL (0.6-4.6); Mean Corpuscular HGB Conc 32.9 g/dL (31.6-35.5); Mean Corpuscular Hemoglobin 28.6 pg (28.0-33.3); Mean Corpuscular Volume 86.7 fL (83.0-100.0); Mean Platelet Volume 11.4 fL (9.4-12.4); Monocytes # 0.9 K/mcL (0.0-1.3); Monocytes % 6.9 %; Neutrophils # 10.7 K/mcL (1.6-8.9); Platelet Count 195 K/mcL (140-400); Red Blood Count 3.92 M/mcL (4.19-5.50); Red Cell Distribution Width 13.4 % (11.5-14.5); Segmented Neutrophils % 79.4 %; White Blood Count 13.4 K/mcL (4.3-11.1)
[2020-12-17 03:46] LABS: Hemoglobin 11.2 g/dL (12.9-16.9)
[2020-12-17 04:01] LABS: BUN/Creatinine Ratio 17 (6-26); Blood Urea Nitrogen 15 mg/dL (8-23); Carbon Dioxide 27 mEq/L (23-29); Chloride 105 mEq/L (98-107); Glucose 110 mg/dL (70-105); Magnesium 1.8 mg/dL (1.6-2.6); Osmolality,Calculated 287 (280-300); Potassium 4.1 mEq/L (3.5-5.1); Sodium 138 mEq/L (136-145); eGFR For African Americans > 60 (> 60); eGFR For Non-African Americans > 60 (> 60)
[2020-12-17] MEDS: *HR* HYDROcodone/Acet 5/325 mg TABLET PO PRN (05:14)
[2020-12-17] MEDS: Azithromycin 500 MG in 0.9 % Sodium Chloride 250 ML IVPB SCH (08:11)
[2020-12-17] MEDS: Gabapentin 300 MG CAPSULE PO SCH ×3 (08:11→19:31)
[2020-12-17] MEDS: Carbidopa/Levodopa 25/100 TABLET PO SCH ×3 (08:12→19:31)
[2020-12-17] MEDS: Aspirin Enteric Coated 81 MG Tablet PO SCH (08:12)
[2020-12-17] MEDS: risperiDONE 0.25 MG TABLET PO SCH ×2 (08:12→19:31)
[2020-12-17] MEDS: predniSONE 20 MG TABLET PO SCH (08:12)
[2020-12-17] MEDS: Metoprolol XL (24 HR) Succ 25 MG TAB.ER.24H PO SCH (08:12)
[2020-12-17] MEDS: Multivit/Ca/Min/Fe/FA 1 TAB TABLET PO SCH (08:12)
[2020-12-17] MEDS: Artificial Tears SOLN 15 ML BOTTLE BOTH EYES SCH ×3 (08:13→19:32)
[2020-12-17] MEDS ORDERED: Ipratropium/Albuterol Neb 3 ML IH PRN (08:39)
[2020-12-17] MEDS ORDERED: NON-FORMULARY MEDICATION 1 EACH EACH (Alendronate Sodium [Fosamax] 10 MG) PO SCH (09:00)
[2020-12-17] MEDS: Nicotine 14 MG PATCH.TD24 TD SCH ×2 (09:39→17:02)
[2020-12-17] MEDS: *HR* OxyCODONE Immed Rel 5 MG TABLET PO PRN ×2 (13:56→21:18)
[2020-12-17] MEDS: *HR* Heparin 5,000 UNIT/ML VIAL SQ SCH (17:07)
[2020-12-18] MEDS: *HR* OxyCODONE Immed Rel 5 MG TABLET PO PRN ×4 (03:18→22:33)
[2020-12-18] MEDS ORDERED: Furosemide 40 MG/4 ML VIAL IVP ONE (07:01)
[2020-12-18] MEDS: *HR* Heparin 5,000 UNIT/ML VIAL SQ SCH ×2 (07:06→16:25)
[2020-12-18] MEDS: predniSONE 20 MG TABLET PO SCH (10:13)
[2020-12-18] MEDS: risperiDONE 0.25 MG TABLET PO SCH ×2 (10:13→19:47)
[2020-12-18] MEDS: Carbidopa/Levodopa 25/100 TABLET PO SCH ×3 (10:15→19:47)
[2020-12-18] MEDS: Aspirin Enteric Coated 81 MG Tablet PO SCH (10:15)
[2020-12-18] MEDS: Metoprolol XL (24 HR) Succ 25 MG TAB.ER.24H PO SCH (10:16)
[2020-12-18] MEDS: Multivit/Ca/Min/Fe/FA 1 TAB TABLET PO SCH (10:16)
[2020-12-18] MEDS: Gabapentin 300 MG CAPSULE PO SCH ×3 (10:17→19:47)
[2020-12-18] MEDS: Nicotine 14 MG PATCH.TD24 TD SCH (10:18)
[2020-12-18] MEDS: Azithromycin 500 MG in 0.9 % Sodium Chloride 250 ML IVPB SCH (10:19)
[2020-12-18] MEDS: Artificial Tears SOLN 15 ML BOTTLE BOTH EYES SCH ×3 (10:21→19:52)
[2020-12-18] MEDS: *HR* HYDROcodone/Acet 5/325 mg TABLET PO PRN (19:47)
[2020-12-19 03:09] LABS: Basophils % 0.3 %; Eosinophils # 0.1 K/mcL (0.0-0.6); Eosinophils % 0.4 %; Hematocrit 36.8 % (37.5-50.1); Immature Granulocytes % 0.5 % (0-4); Lymphocytes # 1.9 K/mcL (0.6-4.6); Lymphocytes % 16.3 %; Mean Corpuscular HGB Conc 32.6 g/dL (31.6-35.5); Mean Corpuscular Hemoglobin 28.9 pg (28.0-33.3); Mean Corpuscular Volume 88.7 fL (83.0-100.0); Mean Platelet Volume 11.3 fL (9.4-12.4); Monocytes # 1.1 K/mcL (0.0-1.3); Monocytes % 9.2 %; Neutrophils # 8.6 K/mcL (1.6-8.9); Platelet Count 211 K/mcL (140-400); Red Blood Count 4.15 M/mcL (4.19-5.50); Red Cell Distribution Width 13.3 % (11.5-14.5); Segmented Neutrophils % 73.3 %; White Blood Count 11.7 K/mcL (4.3-11.1)
[2020-12-19 03:24] LABS: BUN/Creatinine Ratio 17 (6-26); Blood Urea Nitrogen 18 mg/dL (8-23); Calcium 8.8 mg/dL (8.6-10.3); Carbon Dioxide 30 mEq/L (23-29); Chloride 101 mEq/L (98-107); Glucose 109 mg/dL (70-105); Osmolality,Calculated 286 (280-300); Potassium 3.8 mEq/L (3.5-5.1); Sodium 137 mEq/L (136-145); eGFR For African Americans > 60 (> 60); eGFR For Non-African Americans > 60 (> 60)
[2020-12-19] MEDS: *HR* HYDROcodone/Acet 5/325 mg TABLET PO PRN ×3 (05:20→21:04)
[2020-12-19] MEDS: *HR* Heparin 5,000 UNIT/ML VIAL SQ SCH ×2 (05:20→17:18)
[2020-12-19] MEDS: Nicotine 14 MG PATCH.TD24 TD SCH (08:07)
[2020-12-19] MEDS: Multivit/Ca/Min/Fe/FA 1 TAB TABLET PO SCH (08:07)
[2020-12-19] MEDS: Azithromycin 500 MG in 0.9 % Sodium Chloride 250 ML IVPB SCH (08:07)
[2020-12-19] MEDS: predniSONE 20 MG TABLET PO SCH (08:08)
[2020-12-19] MEDS: Gabapentin 300 MG CAPSULE PO SCH ×3 (08:08→19:37)
[2020-12-19] MEDS: Aspirin Enteric Coated 81 MG Tablet PO SCH (08:08)
[2020-12-19] MEDS: risperiDONE 0.25 MG TABLET PO SCH ×2 (08:08→19:37)
[2020-12-19] MEDS: Metoprolol XL (24 HR) Succ 25 MG TAB.ER.24H PO SCH (08:09)
[2020-12-19] MEDS: Carbidopa/Levodopa 25/100 TABLET PO SCH ×3 (08:09→19:36)
[2020-12-19] MEDS: Artificial Tears SOLN 15 ML BOTTLE BOTH EYES SCH ×3 (08:10→19:37)
[2020-12-19] MEDS: *HR* OxyCODONE Immed Rel 5 MG TABLET PO PRN ×2 (10:23→18:34)
[2020-12-20 01:34] LABS: Basophils % 0.3 %; Eosinophils # 0.1 K/mcL (0.0-0.6); Eosinophils % 0.4 %; Hematocrit 34.7 % (37.5-50.1); Hemoglobin 11.5 g/dL (12.9-16.9); Immature Granulocytes % 0.7 % (0-4); Lymphocytes # 1.8 K/mcL (0.6-4.6); Lymphocytes % 13.2 %; Mean Corpuscular HGB Conc 33.1 g/dL (31.6-35.5); Mean Corpuscular Hemoglobin 28.7 pg (28.0-33.3); Mean Corpuscular Volume 86.5 fL (83.0-100.0); Monocytes # 1.2 K/mcL (0.0-1.3); Monocytes % 8.9 %; Neutrophils # 10.6 K/mcL (1.6-8.9); Platelet Count 201 K/mcL (140-400); Red Blood Count 4.01 M/mcL (4.19-5.50); Red Cell Distribution Width 13.2 % (11.5-14.5); Segmented Neutrophils % 76.5 %; White Blood Count 13.9 K/mcL (4.3-11.1)
[2020-12-20 01:52] LABS: BUN/Creatinine Ratio 21 (6-26); Blood Urea Nitrogen 18 mg/dL (8-23); Calcium 8.7 mg/dL (8.6-10.3); Carbon Dioxide 27 mEq/L (23-29); Chloride 103 mEq/L (98-107); Glucose 112 mg/dL (70-105); Osmolality,Calculated 285 (280-300); Potassium 3.7 mEq/L (3.5-5.1); Sodium 136 mEq/L (136-145); eGFR For African Americans > 60 (> 60); eGFR For Non-African Americans > 60 (> 60)
[2020-12-20] MEDS: *HR* OxyCODONE Immed Rel 5 MG TABLET PO PRN (03:25)
[2020-12-20] MEDS: *HR* Heparin 5,000 UNIT/ML VIAL SQ SCH ×2 (05:26→16:23)
[2020-12-20] MEDS: *HR* HYDROcodone/Acet 5/325 mg TABLET PO PRN ×4 (05:26→23:53)
[2020-12-20] MEDS: Metoprolol XL (24 HR) Succ 25 MG TAB.ER.24H PO SCH (09:26)
[2020-12-20] MEDS: Nicotine 14 MG PATCH.TD24 TD SCH (09:34)
[2020-12-20] MEDS: Carbidopa/Levodopa 25/100 TABLET PO SCH ×3 (09:35→20:30)
[2020-12-20] MEDS: Multivit/Ca/Min/Fe/FA 1 TAB TABLET PO SCH (09:35)
[2020-12-20] MEDS: Gabapentin 300 MG CAPSULE PO SCH ×3 (09:35→20:29)
[2020-12-20] MEDS: Aspirin Enteric Coated 81 MG Tablet PO SCH (09:35)
[2020-12-20] MEDS: risperiDONE 0.25 MG TABLET PO SCH ×2 (09:35→20:30)
[2020-12-20] MEDS: Azithromycin 500 MG in 0.9 % Sodium Chloride 250 ML IVPB SCH (09:35)
[2020-12-20] MEDS: predniSONE 20 MG TABLET PO SCH (09:35)
[2020-12-20] MEDS: Artificial Tears SOLN 15 ML BOTTLE BOTH EYES SCH ×3 (09:36→20:30)
[2020-12-21 01:48] LABS: Basophils # 0.1 K/mcL (0.0-0.2); Basophils % 0.4 %; Eosinophils # 0.1 K/mcL (0.0-0.6); Eosinophils % 0.8 %; Hematocrit 34.4 % (37.5-50.1); Hemoglobin 11.6 g/dL (12.9-16.9); Lymphocytes # 1.8 K/mcL (0.6-4.6); Lymphocytes % 14.9 %; Mean Corpuscular HGB Conc 33.7 g/dL (31.6-35.5); Mean Corpuscular Hemoglobin 28.9 pg (28.0-33.3); Mean Corpuscular Volume 85.6 fL (83.0-100.0); Mean Platelet Volume 11.1 fL (9.4-12.4); Monocytes # 0.9 K/mcL (0.0-1.3); Monocytes % 7.4 %; Neutrophils # 9.1 K/mcL (1.6-8.9); Platelet Count 217 K/mcL (140-400); Red Blood Count 4.02 M/mcL (4.19-5.50); Red Cell Distribution Width 13.2 % (11.5-14.5); Segmented Neutrophils % 75.5 %
[2020-12-21 02:08] LABS: BUN/Creatinine Ratio 24 (6-26); Blood Urea Nitrogen 19 mg/dL (8-23); Calcium 8.9 mg/dL (8.6-10.3); Carbon Dioxide 27 mEq/L (23-29); Chloride 105 mEq/L (98-107); Glucose 107 mg/dL (70-105); Osmolality,Calculated 291 (280-300); Potassium 4.2 mEq/L (3.5-5.1); Sodium 139 mEq/L (136-145); eGFR For African Americans > 60 (> 60); eGFR For Non-African Americans > 60 (> 60)
[2020-12-21] MEDS: *HR* HYDROcodone/Acet 5/325 mg TABLET PO PRN (05:53)
[2020-12-21] MEDS: *HR* Heparin 5,000 UNIT/ML VIAL SQ SCH ×2 (05:53→17:06)
[2020-12-21] MEDS: Aspirin Enteric Coated 81 MG Tablet PO SCH (10:50)
[2020-12-21] MEDS: Gabapentin 300 MG CAPSULE PO SCH ×3 (11:03→19:54)
[2020-12-21] MEDS: risperiDONE 0.25 MG TABLET PO SCH ×2 (11:03→19:54)
[2020-12-21] MEDS: Carbidopa/Levodopa 25/100 TABLET PO SCH ×3 (11:03→19:54)
[2020-12-21] MEDS: Metoprolol XL (24 HR) Succ 25 MG TAB.ER.24H PO SCH (11:04)
[2020-12-21] MEDS: predniSONE 20 MG TABLET PO SCH (11:04)
[2020-12-21] MEDS: Nicotine 14 MG PATCH.TD24 TD SCH (11:04)
[2020-12-21] MEDS: Multivit/Ca/Min/Fe/FA 1 TAB TABLET PO SCH (11:04)
[2020-12-21] MEDS: Artificial Tears SOLN 15 ML BOTTLE BOTH EYES SCH ×3 (11:26→19:54)
[2020-12-21] MEDS: *HR* OxyCODONE Immed Rel 5 MG TABLET PO PRN ×2 (12:44→19:54)
[2020-12-22] MEDS: *HR* OxyCODONE Immed Rel 5 MG TABLET PO PRN ×2 (03:44→20:03)
[2020-12-22] MEDS: *HR* Heparin 5,000 UNIT/ML VIAL SQ SCH ×2 (04:38→16:55)
[2020-12-22] MEDS: Carbidopa/Levodopa 25/100 TABLET PO SCH ×3 (09:23→19:57)
[2020-12-22] MEDS: risperiDONE 0.25 MG TABLET PO SCH ×2 (09:23→19:57)
[2020-12-22] MEDS: predniSONE 20 MG TABLET PO SCH (09:24)
[2020-12-22] MEDS: Multivit/Ca/Min/Fe/FA 1 TAB TABLET PO SCH (09:24)
[2020-12-22] MEDS: *HR* HYDROcodone/Acet 5/325 mg TABLET PO PRN ×2 (09:24→16:55)
[2020-12-22] MEDS: Aspirin Enteric Coated 81 MG Tablet PO SCH (09:24)
[2020-12-22] MEDS: Gabapentin 300 MG CAPSULE PO SCH ×3 (09:24→19:57)
[2020-12-22] MEDS: Nicotine 14 MG PATCH.TD24 TD SCH (09:24)
[2020-12-22] MEDS: Artificial Tears SOLN 15 ML BOTTLE BOTH EYES SCH ×3 (09:26→19:58)
[2020-12-22] MEDS: Metoprolol XL (24 HR) Succ 25 MG TAB.ER.24H PO SCH (09:29)
[2020-12-23 01:21] LABS: Basophils # 0.1 K/mcL (0.0-0.2); Basophils % 0.5 %; Eosinophils # 0.1 K/mcL (0.0-0.6); Eosinophils % 0.9 %; Hematocrit 35.8 % (37.5-50.1); Hemoglobin 11.6 g/dL (12.9-16.9); Immature Granulocytes % 2.7 % (0-4); Lymphocytes # 1.7 K/mcL (0.6-4.6); Lymphocytes % 12.3 %; Mean Corpuscular HGB Conc 32.4 g/dL (31.6-35.5); Mean Corpuscular Hemoglobin 28.8 pg (28.0-33.3); Mean Corpuscular Volume 88.8 fL (83.0-100.0); Mean Platelet Volume 11.3 fL (9.4-12.4); Monocytes # 0.9 K/mcL (0.0-1.3); Monocytes % 6.2 %; Neutrophils # 10.8 K/mcL (1.6-8.9); Platelet Count 228 K/mcL (140-400); Red Blood Count 4.03 M/mcL (4.19-5.50); Red Cell Distribution Width 13.1 % (11.5-14.5); Segmented Neutrophils % 77.4 %
[2020-12-23 01:40] LABS: BUN/Creatinine Ratio 23 (6-26); Blood Urea Nitrogen 18 mg/dL (8-23); Calcium 8.7 mg/dL (8.6-10.3); Carbon Dioxide 24 mEq/L (23-29); Chloride 103 mEq/L (98-107); Glucose 151 mg/dL (70-105); Osmolality,Calculated 287 (280-300); Potassium 3.5 mEq/L (3.5-5.1); Sodium 136 mEq/L (136-145); eGFR For African Americans > 60 (> 60); eGFR For Non-African Americans > 60 (> 60)
[2020-12-23] MEDS: *HR* HYDROcodone/Acet 5/325 mg TABLET PO PRN ×2 (02:55→08:00)
[2020-12-23] MEDS: *HR* Heparin 5,000 UNIT/ML VIAL SQ SCH (05:09)
[2020-12-23] MEDS: predniSONE 20 MG TABLET PO SCH (08:00)
[2020-12-23] MEDS: Metoprolol XL (24 HR) Succ 25 MG TAB.ER.24H PO SCH (08:00)
[2020-12-23] MEDS: Aspirin Enteric Coated 81 MG Tablet PO SCH (08:00)
[2020-12-23] MEDS: Gabapentin 300 MG CAPSULE PO SCH (08:00)
[2020-12-23] MEDS: Multivit/Ca/Min/Fe/FA 1 TAB TABLET PO SCH (08:00)
[2020-12-23] MEDS: risperiDONE 0.25 MG TABLET PO SCH (08:00)
[2020-12-23] MEDS: Nicotine 14 MG PATCH.TD24 TD SCH (08:01)
[2020-12-23] MEDS: Carbidopa/Levodopa 25/100 TABLET PO SCH (08:01)
[2020-12-23] MEDS: Artificial Tears SOLN 15 ML BOTTLE BOTH EYES SCH (08:11)
[2020-12-23 10:49] VITALS: BP 108/64
== END 2020-12-23 13:43 | disposition home health service (06) | DRG 191 ==
LOC: 2ANU 09:24 → EMEROOARM 09:24 → 2ANU 14:39 → SUATTDRO 12-18 13:47
PROVIDERS: ADMIT Internal Medicine; ATTEND General Practice

== ENCOUNTER 2021-04-26 11:20 | Observation (INO) ==
[2021-04-26] MEDS ORDERED: Isovue-370 500 ML BOTTLE IVP ONE (11:36)
[2021-04-26] MEDS ORDERED: Ipratropium/Albuterol Neb 3 ML IH ONE (11:36)
[2021-04-26] MEDS ORDERED: 0.9 % Sodium Chloride 1,000 ML IVC ONE (11:36)
[2021-04-26] MEDS ORDERED: methylPREDNISolone 125 MG/2 ML VIAL IVP ONE (11:36)
[2021-04-26] MEDS ORDERED: Piperacillin/Tazobactam 3.375 GM in Water for inj. (sterile) 20 ML IVP ONE (11:36)
[2021-04-26] MEDS ORDERED: Ondansetron 4 MG/2 ML VIAL IVP ONE (12:14)
[2021-04-26] MEDS ORDERED: Acetaminophen IV 1,000 MG/100 ML BAG IVPB ONE (12:15)
[2021-04-26 12:17] LABS: Basophils % 0.3 %; Eosinophils % 0.3 %; Hematocrit 38.1 % (37.5-50.1); Hemoglobin 12.6 g/dL (12.9-16.9); Immature Granulocytes % 0.2 % (0-4); Lymphocytes # 0.7 K/mcL (0.6-4.6); Lymphocytes % 5.2 %; Mean Corpuscular HGB Conc 33.1 g/dL (31.6-35.5); Mean Corpuscular Hemoglobin 28.5 pg (28.0-33.3); Mean Corpuscular Volume 86.2 fL (83.0-100.0); Mean Platelet Volume 11.2 fL (9.4-12.4); Monocytes # 0.7 K/mcL (0.0-1.3); Monocytes % 5.4 %; Neutrophils # 11.4 K/mcL (1.6-8.9); Platelet Count 149 K/mcL (140-400); Red Blood Count 4.42 M/mcL (4.19-5.50); Red Cell Distribution Width 13.9 % (11.5-14.5); Segmented Neutrophils % 88.6 %; White Blood Count 12.9 K/mcL (4.3-11.1)
[2021-04-26 12:28] LABS: Alanine Aminotransferase 5 Units/L (7-52); Albumin 3.9 g/dL (3.5-5.7); Alkaline Phosphatase 67 Units/L (34-104); Aspartate Amino Transferase 21 Units/L (13-39); BUN/Creatinine Ratio 15 (6-26); Bilirubin,Direct 0.1 mg/dL (0.0-0.2); Bilirubin,Indirect 0.3 mg/dL (0.0-1.0); Bilirubin,Total 0.4 mg/dL (0.3-1.0); Blood Urea Nitrogen 15 mg/dL (8-23); Calcium 8.9 mg/dL (8.6-10.3); Carbon Dioxide 23 mEq/L (23-29); Chloride 110 mEq/L (98-107); Glucose 103 mg/dL (70-105); Osmolality,Calculated 291 (280-300); Potassium 3.8 mEq/L (3.5-5.1); Sodium 140 mEq/L (136-145); Total Protein 6.1 g/dL (6.4-8.9); eGFR For African Americans > 60 (> 60); eGFR For Non-African Americans > 60 (> 60)
[2021-04-26 12:29] LABS: Albumin/Globulin Ratio 1.8 (1.1-2.2); Creatine Kinase 133 Units/L (30-223); Globulin 2.2 g/dL (2.4-3.5); Troponin I < 0.03 ng/mL (< 0.04)
[2021-04-26 12:36] LABS: INR 1.1; Prothrombin Time 12.5 Seconds (9.4-12.1)
[2021-04-26 12:38] LABS: Activated Partial Thrombo Time 27.6 Seconds (26.0-36.0)
[2021-04-26 13:00] LABS: VBG HCO3 25 mEq/L (21-27); VBG PCO2 50 mmHg (41-51); VBG PO2 34 mmHg (25-50)
[2021-04-26] MEDS ORDERED: Vancomycin 1,500 MG/265 ML IV.SOLN IVPB ONE (13:00)
[2021-04-26] MEDS ORDERED: Ondansetron 4 MG/2 ML VIAL IVP PRN (14:48)
[2021-04-26] MEDS ORDERED: Naloxone 0.4 MG/ML INJ IVP PRN (14:48)
[2021-04-26] MEDS ORDERED: Ipratropium/Albuterol Neb 3 ML IH PRN (14:51)
[2021-04-26 14:57] LABS: Bilirubin,Urine Negative (Negative); Blood,Urine Negative (Negative); Clarity,Urine Clear (Clear); Color,Urine Light-Yellow (Yellow); Glucose,Urine (UA) Normal (Normal); Ketones,Urine Negative (Negative); Leukocyte Esterase,Urine Negative (Negative); Nitrite,Urine Negative (Negative); Protein,Urine Negative (Neg-Trace); Specific Gravity,Urine > 1.030 (1.010-1.025); Urobilinogen,Urine Normal (Normal)
[2021-04-26] MEDS: Folic Acid 1 MG TABLET PO SCH (16:41)
[2021-04-26] MEDS: Ampicillin/Sulbactam 1,500 MG in 0.9 % Sodium Chloride Mini Bag 100 ML IVPB SCH (16:41)
[2021-04-26] MEDS: MethylPREDNISolone 40 MG/ML VIAL IVP SCH (16:41)
[2021-04-26] MEDS: *HR* HYDROcodone/Acet 5/325 mg TABLET PO PRN (16:41)
[2021-04-26] MEDS: risperiDONE 0.25 MG TABLET PO SCH (21:02)
[2021-04-26] MEDS: *HR* Heparin 5,000 UNIT/ML VIAL SQ SCH (21:02)
[2021-04-26] MEDS: Gabapentin 300 MG CAPSULE PO SCH (21:02)
[2021-04-26] MEDS: Carbidopa/Levodopa 25/100 TABLET PO SCH (21:03)
[2021-04-26] MEDS ORDERED: Acetaminophen 325 MG TABLET PO ONE (21:16)
[2021-04-27] MEDS: Ampicillin/Sulbactam 1,500 MG in 0.9 % Sodium Chloride Mini Bag 100 ML IVPB SCH ×4 (00:06→17:21)
[2021-04-27 05:06] LABS: Basophils % 0.1 %; Hematocrit 36.8 % (37.5-50.1); Hemoglobin 11.9 g/dL (12.9-16.9); Immature Granulocytes % 0.6 % (0-4); Lymphocytes # 1.2 K/mcL (0.6-4.6); Lymphocytes % 6.5 %; Mean Corpuscular HGB Conc 32.3 g/dL (31.6-35.5); Mean Corpuscular Hemoglobin 28.1 pg (28.0-33.3); Mean Platelet Volume 11.2 fL (9.4-12.4); Monocytes # 0.5 K/mcL (0.0-1.3); Monocytes % 2.8 %; Neutrophils # 17.3 K/mcL (1.6-8.9); Platelet Count 155 K/mcL (140-400); Red Blood Count 4.23 M/mcL (4.19-5.50); Red Cell Distribution Width 14.1 % (11.5-14.5); White Blood Count 19.2 K/mcL (4.3-11.1)
[2021-04-27 05:24] LABS: BUN/Creatinine Ratio 15 (6-26); Blood Urea Nitrogen 14 mg/dL (8-23); Calcium 8.5 mg/dL (8.6-10.3); Carbon Dioxide 24 mEq/L (23-29); Chloride 108 mEq/L (98-107); Glucose 122 mg/dL (70-105); Magnesium 1.6 mg/dL (1.6-2.6); Osmolality,Calculated 290 (280-300); Phosphorous 2.2 mg/dL (2.7-4.5); Sodium 139 mEq/L (136-145); eGFR For African Americans > 60 (> 60); eGFR For Non-African Americans > 60 (> 60)
[2021-04-27] MEDS: MethylPREDNISolone 40 MG/ML VIAL IVP SCH ×2 (05:59→17:21)
[2021-04-27] MEDS: *HR* Heparin 5,000 UNIT/ML VIAL SQ SCH ×3 (06:00→21:46)
[2021-04-27] MEDS: risperiDONE 0.25 MG TABLET PO SCH ×2 (08:26→21:45)
[2021-04-27] MEDS: Gabapentin 300 MG CAPSULE PO SCH ×3 (08:26→21:46)
[2021-04-27] MEDS: Metoprolol XL (24 HR) Succ 25 MG TAB.ER.24H PO SCH (08:26)
[2021-04-27] MEDS: Aspirin Enteric Coated 81 MG Tablet PO SCH (08:27)
[2021-04-27] MEDS: Carbidopa/Levodopa 25/100 TABLET PO SCH ×3 (08:27→21:45)
[2021-04-27] MEDS: *HR* HYDROcodone/Acet 5/325 mg TABLET PO PRN ×2 (08:31→17:21)
[2021-04-27] MEDS: valACYclovir 500 MG TABLET PO SCH ×2 (15:25→21:45)
[2021-04-27] MEDS: Budesonide/Formoterol 160/4.5 1 PUFF INH IH SCH (19:51)
[2021-04-28] MEDS: Ampicillin/Sulbactam 1,500 MG in 0.9 % Sodium Chloride Mini Bag 100 ML IVPB SCH ×2 (04:23→06:39)
[2021-04-28] MEDS: *HR* Heparin 5,000 UNIT/ML VIAL SQ SCH ×2 (06:38→16:19)
[2021-04-28] MEDS: MethylPREDNISolone 40 MG/ML VIAL IVP SCH (06:38)
[2021-04-28] MEDS: *HR* HYDROcodone/Acet 5/325 mg TABLET PO PRN ×2 (07:50→16:19)
[2021-04-28] MEDS: Budesonide/Formoterol 160/4.5 1 PUFF INH IH SCH (07:56)
[2021-04-28] MEDS ORDERED: ALENDRONATE SODIUM 10 MG PO SCH (09:00)
[2021-04-28] MEDS: Gabapentin 300 MG CAPSULE PO SCH ×2 (10:32→16:19)
[2021-04-28] MEDS: valACYclovir 500 MG TABLET PO SCH ×2 (10:32→16:20)
[2021-04-28] MEDS: Carbidopa/Levodopa 25/100 TABLET PO SCH ×2 (10:32→16:19)
[2021-04-28] MEDS: Metoprolol XL (24 HR) Succ 25 MG TAB.ER.24H PO SCH (10:33)
[2021-04-28] MEDS: Aspirin Enteric Coated 81 MG Tablet PO SCH (10:33)
[2021-04-28] MEDS: risperiDONE 0.25 MG TABLET PO SCH (10:33)
[2021-04-28 10:50] LABS: Basophils % 0.1 %; Hematocrit 36.8 % (37.5-50.1); Hemoglobin 11.4 g/dL (12.9-16.9); Immature Granulocytes % 0.8 % (0-4); Lymphocytes # 0.7 K/mcL (0.6-4.6); Lymphocytes % 5.5 %; Mean Corpuscular Hemoglobin 27.9 pg (28.0-33.3); Mean Corpuscular Volume 90.2 fL (83.0-100.0); Monocytes # 0.2 K/mcL (0.0-1.3); Monocytes % 1.6 %; Neutrophils # 11.2 K/mcL (1.6-8.9); Platelet Count 155 K/mcL (140-400); Red Blood Count 4.08 M/mcL (4.19-5.50); Red Cell Distribution Width 14.1 % (11.5-14.5); White Blood Count 12.1 K/mcL (4.3-11.1)
[2021-04-28 11:16] LABS: BUN/Creatinine Ratio 16 (6-26); Blood Urea Nitrogen 15 mg/dL (8-23); Carbon Dioxide 23 mEq/L (23-29); Chloride 110 mEq/L (98-107); Glucose 179 mg/dL (70-105); Osmolality,Calculated 297 (280-300); Potassium 3.9 mEq/L (3.5-5.1); Sodium 141 mEq/L (136-145); eGFR For African Americans > 60 (> 60); eGFR For Non-African Americans > 60 (> 60)
[2021-04-28 16:01] VITALS: BP 126/70
[2021-04-28] MEDS: Folic Acid 1 MG TABLET PO SCH (16:19)
== END 2021-04-28 16:55 | disposition home health service (06) ==
LOC: EMEROOARM 11:20 → 3ANU 11:20 → SUATTDRO 14:52 → 3ANU 15:58
PROVIDERS: ADMIT Internal Medicine; ATTEND Family Medicine

== ENCOUNTER 2021-08-10 11:04 | Observation (INO) ==
[2021-08-10] MEDS ORDERED: Aspirin 325 MG TABLET PO ONE (11:10)
[2021-08-10] MEDS ORDERED: predniSONE 20 MG TABLET PO ONE (11:23)
[2021-08-10 11:32] LABS: Basophils # 0.1 K/mcL (0.0-0.2); Basophils % 0.6 %; Eosinophils # 0.1 K/mcL (0.0-0.6); Eosinophils % 0.8 %; Hematocrit 38.2 % (37.5-50.1); Hemoglobin 12.4 g/dL (12.9-16.9); Immature Granulocytes % 0.2 % (0-4); Lymphocytes # 1.7 K/mcL (0.6-4.6); Lymphocytes % 18.9 %; Mean Corpuscular HGB Conc 32.5 g/dL (31.6-35.5); Mean Corpuscular Hemoglobin 28.4 pg (28.0-33.3); Mean Corpuscular Volume 87.6 fL (83.0-100.0); Mean Platelet Volume 11.2 fL (9.4-12.4); Monocytes # 0.6 K/mcL (0.0-1.3); Monocytes % 6.5 %; Neutrophils # 6.4 K/mcL (1.6-8.9); Platelet Count 176 K/mcL (140-400); Red Blood Count 4.36 M/mcL (4.19-5.50); Red Cell Distribution Width 13.4 % (11.5-14.5); White Blood Count 8.8 K/mcL (4.3-11.1)
[2021-08-10 11:40] LABS: INR 1.1; Prothrombin Time 12.8 Seconds (9.4-12.1)
[2021-08-10 11:42] LABS: Activated Partial Thrombo Time 30.3 Seconds (26.0-36.0)
[2021-08-10] MEDS ORDERED: 0.9 % Sodium Chloride 500 ML IVC ONE (11:58)
[2021-08-10] MEDS ORDERED: 0.9 % Sodium Chloride 500 ML ONE ×2 (11:58→13:27)
[2021-08-10] MEDS ORDERED: Perflutren Lipid Microsphere 1.3 ML in 0.9 % Sodium Chloride 8.7 ML IVP PRN (12:03)
[2021-08-10 12:16] LABS: BUN/Creatinine Ratio 14 (6-26); Blood Urea Nitrogen 17 mg/dL (8-23); Calcium 9.2 mg/dL (8.6-10.3); Carbon Dioxide 25 mEq/L (23-29); Chloride 108 mEq/L (98-107); Glucose 116 mg/dL (70-105); Osmolality,Calculated 291 (280-300); Potassium 4.4 mEq/L (3.5-5.1); Sodium 139 mEq/L (136-145); Thyroid Stimulating Hormone 1.215 mcIU/mL (0.340-5.600); Troponin I < 0.03 ng/mL (< 0.04); eGFR For African Americans > 60 (> 60); eGFR For Non-African Americans 59 (> 60)
[2021-08-10 12:21] LABS: Influenza A PCR Negative (Negative); Influenza B PCR Negative (Negative); Resp. Syncytial Virus PCR Negative (Negative)
[2021-08-10 12:22] LABS: SARS-CoV-2 by PCR (In House) Negative (Negative)
[2021-08-10 12:30] LABS: Magnesium 1.8 mg/dL (1.6-2.6)
[2021-08-10] MEDS ORDERED: *HR* Midazolam HCl 2 MG/2 ML VIAL ONE (13:26)
[2021-08-10] MEDS ORDERED: *HR* FentaNYL (PF) 100 MCG/2 ML VIAL ONE (13:26)
[2021-08-10] MEDS ORDERED: 0.9 % Sodium Chloride 1,000 ML ONE (13:30)
[2021-08-10] MEDS ORDERED: Isovue-250 100 ML INFUS..BTL ONE (14:05)
[2021-08-10] MEDS: Acetaminophen 325 MG TABLET PO PRN (19:45)
[2021-08-11] MEDS ORDERED: lisinopriL 5 MG TABLET PO SCH (09:00)
[2021-08-11] MEDS ORDERED: Metoprolol XL (24 HR) Succ 25 MG TAB.ER.24H PO SCH (09:00)
[2021-08-11] MEDS ORDERED: Furosemide 40 MG/4 ML VIAL IVP SCH (09:00)
[2021-08-11] MEDS: Acetaminophen 325 MG TABLET PO PRN (09:29)
[2021-08-11] MEDS ORDERED: *HR* OxyCODONE ER (12 HR) 10 MG TABLET PO ONE (09:32)
[2021-08-11 14:33] VITALS: BP 124/71; PULSE 66; TEMP 98.2; O2SAT 98
== END 2021-08-11 20:05 | disposition home or self-care (01) ==
LOC: 3BNU 11:04 → EMEROOARM 11:04 → 3BNU 13:37
PROVIDERS: ADMIT Student in an Organized Health Care Education/Training Program; ATTEND Student in an Organized Health Care Education/Training Program